=== PATIENT | male | born 1955 | race Caucasian/White ===

== ENCOUNTER 2017-04-23 07:29 | Emergency (ER) | payer OTHER ==
[2017-04-23] MEDS ORDERED: NS 0.9% 1000 ML* 1,000 ML IV ONE (08:25)
[2017-04-23] MEDS ORDERED: Aspirin Low Dose CHEW TAB* 81 MG PO ONE (08:25)
[2017-04-23] MEDS ORDERED: Aspirin TAB* 325 MG PO ONE (08:25)
[2017-04-23] MEDS ORDERED: Nitroglycerin TAB 0.4 MG* 0.4 MG TAB SL ONE (08:25)
[2017-04-23 08:52] LABS: Hematocrit 46 % (42-52); Hemoglobin 15.6 g/dl (14.0-18.0); Mean Corpuscular HGB Conc 34 g/dl (31-36); Mean Corpuscular Hemoglobin 31 pg (27-31); Mean Corpuscular Volume 90 fL (80-94); Mean Platelet Volume 8 um3 (7.4-10.4); Red Blood Count 5.05 10^6/ul (4.0-5.4); Red Cell Distribution Width 13 % (10.5-15); White Blood Count 7.8 10^3/ul (3.5-10.8)
[2017-04-23 09:13] LABS: Albumin 4.4 g/dL (3.2-5.2); BUN/Creatinine Ratio 20.9 (8-20); Calcium 9.8 mg/dL (8.6-10.3); EGFR African American 108.9 (>60); EGFR Non-African American 84.7 (>60); Globulin 2.8 g/dL (2-4); Potassium 3.7 mmol/L (3.5-5.0); Total Bilirubin 0.4 mg/dL (0.2-1.0); Total Protein 7.2 g/dL (6.4-8.9)
--- NOTE | 2017-04-23 09:20 | RAD ---
Indication: Chest pain. 2 views the chest including dual energy PA views demonstrate no mediastinal shift. Heart is of normal size and configuration. Lung de guzman are clear. When compared to previous exam of April 10, 2015 no significant change is noted. IMPRESSION: No active cardiopulmonary disease is noted.
[2017-04-23 15:37] VITALS: BP 117/72
--- NOTE | 2017-04-23 15:56 | ED ---
Paras Quinteros Angela, scribed for Wali Ross MD on 04/23/17 at 0804 . HPI Chest Pain - HPI Summary HPI Summary: This pt is a 61 y/o male BIBA presenting to [facility] c/o intermittent chest pain x6 days (since ). Pt notes his pain is worse in the morning and is located across his chest on both sides. He has taken some aspirin but not on a daily basis, today took one ASA at 0500. His pain radiates to his left arm. Pt endorses some intermittent back pain, not now. He denies SOB, LE swelling, LE pain, long distance travel. He currently rates his pain 2 out of 10 in severity and is described as "discomfort" and "it's just there." Pt has had this chest pain intermittently over the years. He reports the last time he had a stress test was in 2014. He had a catheterization in 2011 and states his coronary arteries are clear. PMHx includes HTN, glucose intolerant. Pt denies PMHx of COPD, diabetes, high cholesterol, blood clots. - History of Current Complaint Chief Complaint: EDChestPainROMI Hx Obtained From: Patient Onset/Duration: Started Days Ago, Still Present Timing: Lasting Days Current Severity: Mild Pain Intensity: 2 Pain Scale Used: 0-10 Numeric Chest Pain Location: Diffuse - across his chest on both sides Chest Pain Radiates: Yes Chest Pain Radiates To:: Arm - left Character: Other: - discomfort now Associated Signs and Symptoms: Positive: Chest Pain, Other: - left arm pain, back pain (not currently). Negative: Shortness of Breath, Calf Pain/Swelling - Allergy/Home Medications Allergies/Adverse Reactions: Allergies Allergy/AdvReac Type Severity Reaction Status Date / Time Sulfamethoxazole Allergy Hives Verified 04/23/17 07:33 w/Trimethoprim [From Bactrim] Home Medications: Home Medications Hydrochlorothiazide TAB* [Hydrodiuril TAB*] 12.5 mg PO DAILY 04/23/17 [History Confirmed 04/23/17] PMH/Surg Hx/FS Hx/Imm Hx Endocrine/Hematology History: Denies: Hx Diabetes, Hx Systemic Lupus Erythematosus, Hx Thyroid Disease, Hx Anemia, Hx Unexplained Bleeding Cardiovascular History: Reports: Hx Hypertension, Other Cardiovascular Problems/ Disorders - cardiac cath in 2009 Denies: Hx Aneurysm, Hx Angina, Hx Angioplasty, Hx Auto Implanted Cardiovert Defib, Hx Cardiac Arrest, Hx Cardiomegaly, Hx Congenital Heart Disease, Hx Congestive Heart Failure, Hx Coronary Artery Disease, Hx Deep Vein Thrombosis, Hx Embolism, Hx Hypercholesterolemia, Hx Hypotension, Hx Myocardial Infarction, Hx Pacemaker/ICD, Hx Peripheral Vascular Disease, Hx Rheumatic Fever, Hx Syncope , Hx Valvular Heart Disease Respiratory History: Denies: Hx Asthma, Hx Chronic Bronchitis, Hx Chronic Obstructive Pulmonary Disease (COPD) History: Reports: Hx Benign Prostatic Hyperplasia, Other Problems/ Disorders - prostatitis Musculoskeletal History: Reports: Hx Arthritis - hands Denies: Hx Back Problems, Hx Fibromyalgia, Hx Gout, Hx Orthopedic Injury, Hx Scoliosis Sensory History: Reports: Hx Cataracts - new lenses, Hx Contacts or Glasses - reading Denies: Hx Hearing Aid Opthamlomology History: Reports: Hx Cataracts - new lenses, Hx Contacts or Glasses - reading Neurological History: Reports: Hx Headaches - summer 2013 Denies: Hx Dementia, Hx Developmental Delay, Hx Migraine, Hx Nerve Disease, Hx Seizures, Hx Spinal Cord Injury, Hx Transient Ischemic Attacks (TIA), Other Neuro Impairments/Disorders Psychiatric History: Denies: Hx Panic Disorder - Surgical History Surgery Procedure, Year, and Place: cardiac cath 2007 - NO STENTS,. cataract surgery bilateral. DETACHED RETINA- 07/2015 ( [facility]ASER SURGERY - REPORT IN PT'S EMR) Hx Anesthesia Reactions: No Infectious Disease History: No Infectious Disease History: Denies: Traveled Outside the [place] in Last 30 Days - Family History Known Family History: Positive: Other - Father: [place] at about 61 y/o - Social History Alcohol Use: None Hx Substance Use: No Substance Use Type: Reports: None Hx Tobacco Use: No Smoking Status (MU): Never Smoked Tobacco Review of Systems Negative: Fever, Chills Positive: Chest Pain - radiating to left arm Negative: Shortness Of Breath Positive: Other - back pain, not currently. . Negative: Edema - in LE or LE pain All Other Systems Reviewed And Are Negative: Yes Physical Exam - Summary Physical Exam Summary: Appearance: Well-appearing, Well-nourished. No acute distress. Skin: Warm. No diaphoresis Eyes: Normal ENT: Normal Neck: Supple, nontender Respiratory: Clear to auscultation. Normal lung sounds. Cardiovascular: Normal heart sounds. Good pulses radial to posterior tibial area. Abdomen: Soft, nontender Bowel: Present Musculoskeletal: Normal, Strength/ROM Intact. No LE edema or tenderness. Neurological: Normal, A&Ox3 Psychiatric: Normal Triage Information Reviewed: Yes Vital Signs On Initial Exam: Initial Vitals BP 131/98 04/23/17 07:32 Vital Signs Reviewed: Yes - [place] Coma Scale Coma Scale Total: 15 Diagnostics - Vital Signs Vital Signs Temp Pulse Resp BP Pulse Ox 04/23/17 07:36 98.1 F 91 19 131/98 97 04/23/17 07:34 72 13 95 04/23/17 07:32 131/98 - Laboratory Lab Results: Lab Results 04/23/17 04/23/17 04/23/17 Range/Units 08:43 08:43 08:43 WBC (3.5-10.8) 10^3/ul RBC (4.0-5.4) 10^6/ul Hgb (14.0-18.0) g/dl Hct (42-52) % MCV (80-94) fL MCH (27-31) pg MCHC (31-36) g/dl RDW (10.5-15) % Plt Count (150-450) 10^3/ul MPV (7.4-10.4) um3 Neut % (Auto) (38-83) % Lymph % (Auto) (25-47) % [place] % (Auto) (1-9) % Eos % (Auto) (0-6) % Baso % (Auto) (0-2) % Absolute Neuts (auto) (1.5-7.7) 10^3/ul Absolute Lymphs (auto) (1.0-4.8) 10^3/ul Absolute Monos (auto) (0-0.8) 10^3/ul Absolute Eos (auto) (0-0.6) 10^3/ul Absolute Basos (auto) (0-0.2) 10^3/ul Absolute Nucleated RBC 10^3/ul Nucleated RBC % INR (Anticoag Therapy) 0.91 (0.89-1.11) APTT 30.5 (26.0-36.3) seconds Sodium 138 (133-145) mmol/L Potassium 3.7 (3.5-5.0) mmol/L Chloride 103 (101-111) mmol/L Carbon Dioxide 27 (22-32) mmol/L Anion Gap 8 (2-11) mmol/L BUN 19 (6-24) mg/dL Creatinine 0.91 (0.67-1.17) mg/dL Est GFR ( Amer) 108.9 (>60) Est GFR (Non-Af Amer) 84.7 (>60) BUN/Creatinine Ratio 20.9 H (8-20) Glucose 132 H (70-100) mg/dL Calcium 9.8 (8.6-10.3) mg/dL Magnesium 2.0 (1.9-2.7) mg/dL Total Bilirubin 0.40 (0.2-1.0) mg/dL AST 17 (13-39) U/L ALT 23 (7-52) U/L Alkaline Phosphatase 65 (34-104) U/L Troponin I 0.00 (<0.04) ng/mL B-Natriuretic Peptide 26 ( - 100) pg/mL Total Protein 7.2 (6.4-8.9) g/dL Albumin 4.4 (3.2-5.2) g/dL Globulin 2.8 (2-4) g/dL Albumin/Globulin Ratio 1.6 (1-3) 04/23/17 04/23/17 04/23/17 Range/Units 08:43 11:32 14:30 WBC 7.8 (3.5-10.8) 10^3/ul RBC 5.05 (4.0-5.4) 10^6/ul Hgb 15.6 (14.0-18.0) g/dl Hct 46 (42-52) % MCV 90 (80-94) fL MCH 31 (27-31) pg MCHC 34 (31-36) g/dl RDW 13 (10.5-15) % Plt Count 233 (150-450) 10^3/ul MPV 8 (7.4-10.4) um3 Neut % (Auto) 72.4 (38-83) % Lymph % (Auto) 18.4 L (25-47) % [place] % (Auto) 7.1 (1-9) % Eos % (Auto) 1.2 (0-6) % Baso % (Auto) 0.9 (0-2) % Absolute Neuts (auto) 5.6 (1.5-7.7) 10^3/ul Absolute Lymphs (auto) 1.4 (1.0-4.8) 10^3/ul Absolute Monos (auto) 0.6 (0-0.8) 10^3/ul Absolute Eos (auto) 0.1 (0-0.6) 10^3/ul Absolute Basos (auto) 0.1 (0-0.2) 10^3/ul Absolute Nucleated RBC 0.01 10^3/ul Nucleated RBC % 0.1 INR (Anticoag Therapy) (0.89-1.11) APTT (26.0-36.3) seconds Sodium (133-145) mmol/L Potassium (3.5-5.0) mmol/L Chloride (101-111) mmol/L Carbon Dioxide (22-32) mmol/L Anion Gap (2-11) mmol/L BUN (6-24) mg/dL Creatinine (0.67-1.17) mg/dL Est GFR ( Amer) (>60) Est GFR (Non-Af Amer) (>60) BUN/Creatinine Ratio (8-20) Glucose (70-100) mg/dL Calcium (8.6-10.3) mg/dL Magnesium (1.9-2.7) mg/dL Total Bilirubin (0.2-1.0) mg/dL AST (13-39) U/L ALT (7-52) U/L Alkaline Phosphatase (34-104) U/L Troponin I 0.00 0.00 (<0.04) ng/mL B-Natriuretic Peptide ( - 100) pg/mL Total Protein (6.4-8.9) g/dL Albumin (3.2-5.2) g/dL Globulin (2-4) g/dL Albumin/Globulin Ratio (1-3) Result Diagrams: 04/23/17 08:43 04/23/17 08:43 Lab Statement: Any lab studies that have been ordered have been reviewed, and results considered in the medical decision making process. - Radiology Chest XR Xray Interpretation: No Acute Changes - IMPRESSION: No active cardiopulmonary disease is noted. ED physician has reviewed this radiology report and agrees. Radiology Interpretation Completed By: Radiologist - EKG 0840 Cardiac Rate: NL - 75 bpm EKG Rhythm: Sinus Rhythm ST Segment: Normal Re-Evaluation - Re-Evaluation First Eval Re-Evaluation Time: 15:25 Change: Improved Comment: Pt is feeling better. Pt is chest pain free and is requesting discharge at this time. 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 Pt is comfortable with the plan and discharge. Chest Pain Course/Dx - Course Assessment/Plan: Pt has had similar episodes in the past. He is currently chest pain free. HEART score of 2. I have low clinical suspicion for ACS. Pt is requesting discharge at this time. He understands he needs to follow up with his fingernail sculptor. Pt and family agree and understand the plan and discharge instructions. - Diagnoses Provider Diagnoses: Chest pain Discharge - Discharge Plan Condition: Stable Disposition: HOME Patient Education Materials: Chest Pain (ED) Referrals: Ester Curran MD [Primary Care Provider] - Inocente Solis MD [Medical Doctor] - Additional Instructions: PLEASE MAKE AN APPOINTMENT FIRST THING IN THE MORNING TO BE SEEN BY YOUR SKIN LAP BONDER WITHIN 1 WEEK PLEASE RETURN TO THE ED FOR ANY WORSENING OR CONCERNING SYMPTOMS. The documentation as recorded by the Paras elias Angela accurately reflects the service I personally performed and the decisions made by me, Wali Ross MD.
== END 2017-04-23 16:04 | disposition home or self-care (01) ==
LOC: ED 07:29
DX: R07.89 Other chest pain (principal); M79.602 Pain in left arm; M54.9 Dorsalgia, unspecified; I10 Essential (primary) hypertension; Z98.42 Cataract extraction status, left eye; Z98.41 Cataract extraction status, right eye; Z88.2 Allergy status to sulfonamides
CPT/HCPCS: 36415; 71020; 80053; 83735; 83880; 84484; 85025; 85610; 85730; 93005; 96360; 99284; A9270-GY

== ENCOUNTER → 2017-04-28 12:20 | Emergency (ER) | payer OTHER ==
[~2017-04-28 12:20] MED LIST: Aspirin Low Dose CHEW TAB* 81 MG PO ONE
[2017-04-28 14:03] LABS: Hematocrit 42 % (42-52); Hemoglobin 14.7 g/dl (14.0-18.0); Mean Corpuscular HGB Conc 35 g/dl (31-36); Mean Corpuscular Hemoglobin 31 pg (27-31); Mean Corpuscular Volume 90 fL (80-94); Mean Platelet Volume 8 um3 (7.4-10.4); Red Blood Count 4.72 10^6/ul (4.0-5.4); Red Cell Distribution Width 13 % (10.5-15); White Blood Count 9.1 10^3/ul (3.5-10.8)
--- NOTE | 2017-04-28 14:08 | RAD ---
HISTORY: Chest pain COMPARISONS: April 23, 2017 VIEWS: 1: frontal portable view of the chest at 1:33 PM FINDINGS: LINES AND TUBES: None. CARDIOMEDIASTINAL SILHOUETTE: The cardiomediastinal silhouette is normal for portable technique. PLEURA: The costophrenic angles are sharp. No pleural abnormalities are noted. LUNG PARENCHYMA: The lungs are clear. ABDOMEN: The upper abdomen is clear. There is no subphrenic gas. BONES AND SOFT TISSUES: No bone or soft tissue abnormalities are noted. IMPRESSION: NO ACTIVE CARDIOPULMONARY DISEASE.
[2017-04-28 14:18] LABS: Albumin 4.2 g/dL (3.2-5.2); Calcium 9.5 mg/dL (8.6-10.3); EGFR African American 110.3 (>60); EGFR Non-African American 85.8 (>60); Globulin 2.7 g/dL (2-4); Magnesium 2.3 mg/dL (1.9-2.7); Potassium 3.7 mmol/L (3.5-5.0); Total Bilirubin 0.4 mg/dL (0.2-1.0); Total Protein 6.9 g/dL (6.4-8.9)
[2017-04-28 14:58] LABS: TSH (Thyroid Stimulating Horm) 1.45 mcIU/mL (0.34-5.60)
--- NOTE | 2017-04-28 15:30 | ED ---
HPI Chest Pain - HPI Summary HPI Summary: Patient presents again to the ED with diffuse chest pain and now with left sided arm tingling over the dorsum of the arm near the elbow which is intermittent. He was seen here 5 days ago (see below) with same symptoms. Denies changes. Aggravated with deep breaths, relieved with lying flat directly onto his chest. He has had a full cardiac workup a few years ago and has seen Dr. Sinclair. Previous note by Dr. Ross: Patient is a 61 y/o male BIBA presenting to the ED with CC of intermittent chest pain x 6 days (since ). Pt notes his pain is worse in the morning and is located across his chest on both sides. He has taken some aspirin but not on a daily basis, today took one ASA at 0500. His pain radiates to his left arm. Pt endorses some intermittent back pain, not now. He denies SOB, LE swelling, LE pain, long distance travel. He currently rates his pain 2 out of 10 in severity and is described as "discomfort" and "it's just there." Pt has had this chest pain intermittently over the years. He reports the last time he had a stress test was in 2014. He had a catheterization in 2011 and states his coronary arteries are clear. PMHx includes HTN, glucose intolerant. Pt denies PMHx of COPD, diabetes, high cholesterol, blood clots. - History of Current Complaint Chief Complaint: EDChestPainROMI Time Seen by Provider: 04/28/17 13:15 Hx Obtained From: Patient Onset/Duration: Started Hours Ago Timing: Constant Initial Severity: Mild Current Severity: Mild Pain Intensity: 2 Pain Scale Used: 0-10 Numeric Chest Pain Location: Diffuse Chest Pain Radiates: Yes Chest Pain Radiates To:: Arm, Jaw Character: Tightness Aggravating Factor(s): Deep Breaths Alleviating Factor(s): Position - Risk Factors Pulmonary Embolism Risk Factors: Negative TAD Risk Factors: Negative AMI/ACS Risk Factors: Family History, Nitroglycerine Use, Hypertension - Additional Pertinent History Referred By: PCP, Other - Carburetor Rebuilder whom 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 - Allergy/Home Medications Allergies/Adverse Reactions: Allergies Allergy/AdvReac Type Severity Reaction Status Date / Time Sulfamethoxazole Allergy Hives Verified 04/23/17 07:33 w/Trimethoprim [From Bactrim] PMH/Surg Hx/FS Hx/Imm Hx Previously Healthy: Yes Endocrine/Hematology History: Denies: Hx Diabetes, Hx Systemic Lupus Erythematosus, Hx Thyroid Disease, Hx Anemia, Hx Unexplained Bleeding Cardiovascular History: Reports: Hx Hypertension, Other Cardiovascular Problems/ Disorders - cardiac cath in 2009 Denies: Hx Aneurysm, Hx Angina, Hx Angioplasty, Hx Auto Implanted Cardiovert Defib, Hx Cardiac Arrest, Hx Cardiomegaly, Hx Congenital Heart Disease, Hx Congestive Heart Failure, Hx Coronary Artery Disease, Hx Deep Vein Thrombosis, Hx Embolism, Hx Hypercholesterolemia, Hx Hypotension, Hx Myocardial Infarction, Hx Pacemaker/ICD, Hx Peripheral Vascular Disease, Hx Rheumatic Fever, Hx Syncope , Hx Valvular Heart Disease Respiratory History: Denies: Hx Asthma, Hx Chronic Bronchitis, Hx Chronic Obstructive Pulmonary Disease (COPD) History: Reports: Hx Benign Prostatic Hyperplasia, Other Problems/ Disorders - prostatitis Musculoskeletal History: Reports: Hx Arthritis - hands Denies: Hx Back Problems, Hx Fibromyalgia, Hx Gout, Hx Orthopedic Injury, Hx Scoliosis Sensory History: Reports: Hx Cataracts - new lenses, Hx Contacts or Glasses - reading Denies: Hx Hearing Aid Opthamlomology History: Reports: Hx Cataracts - new lenses, Hx Contacts or Glasses - reading Neurological History: Reports: Hx Headaches - summer 2013 Denies: Hx Dementia, Hx Developmental Delay, Hx Migraine, Hx Nerve Disease, Hx Seizures, Hx Spinal Cord Injury, Hx Transient Ischemic Attacks (TIA), Other Neuro Impairments/Disorders Psychiatric History: Denies: Hx Panic Disorder - Surgical History Surgery Procedure, Year, and Place: cardiac cath 2007 - NO STENTS,. cataract surgery bilateral. DETACHED RETINA- 07/2015 ( LASER SURGERY - REPORT IN PT'S EMR) Hx Anesthesia Reactions: No - Immunization History Hx Pertussis Vaccination: No Immunizations Up to Date: Unable to Obtain/Confirm Infectious Disease History: No Infectious Disease History: Denies: Traveled Outside the [place] in Last 30 Days - Family History Known Family History: Positive: None, Other - Father: [place] at about 61 y/o - Social History Occupation: Employed Full-time Lives: With Family Alcohol Use: None Hx Substance Use: No Substance Use Type: Reports: None Hx Tobacco Use: No Smoking Status (MU): Never Smoked Tobacco Review of Systems Constitutional: Negative Negative: Fever, Chills, Fatigue Eyes: Negative Positive: Chest Pain Respiratory: Negative Genitourinary: Negative Positive: no symptoms reported, see HPI Positive: Arthralgia - left arm tingling Positive: Paresthesia - tingling in to the left arm Psychological: Normal All Other Systems Reviewed And Are Negative: Yes Physical Exam Triage Information Reviewed: Yes Vital Signs On Initial Exam: Initial Vitals Temp Pulse Resp BP Pulse Ox 97.8 F 81 18 152/80 99 04/28/17 12:20 04/28/17 12:20 04/28/17 12:20 04/28/17 12:20 04/28/17 12:20 Vital Signs Reviewed: Yes Appearance: Positive: Well-Appearing, Well-Nourished Skin: Positive: Warm, Skin Color Reflects Adequate Perfusion Head/Face: Positive: Normal Head/Face Inspection Eyes: Positive: EOMI, AJ, Conjunctiva Clear Neck: Positive: Supple, No Lymphadenopathy Respiratory/Lung Sounds: Positive: Clear to Auscultation, Breath Sounds Present Cardiovascular: Positive: RRR, Pulses are Symmetrical in both Upper and Lower Extremities Musculoskeletal: Positive: Normal, Strength/ROM Intact Neurological: Positive: Speech Normal Psychiatric: Positive: Normal AVPU Assessment: Alert Diagnostics - Vital Signs Vital Signs Temp Pulse Resp BP Pulse Ox 04/28/17 12:20 97.8 F 81 18 152/80 99 - Laboratory Lab Results: Lab Results 04/28/17 04/28/17 04/28/17 Range/Units 13:50 13:50 13:50 WBC (3.5-10.8) 10^3/ul RBC (4.0-5.4) 10^6/ul Hgb (14.0-18.0) g/dl Hct (42-52) % MCV (80-94) fL MCH (27-31) pg MCHC (31-36) g/dl RDW (10.5-15) % Plt Count (150-450) 10^3/ul MPV (7.4-10.4) um3 Neut % (Auto) (38-83) % Lymph % (Auto) (25-47) % [place] % (Auto) (1-9) % Eos % (Auto) (0-6) % Baso % (Auto) (0-2) % Absolute Neuts (auto) (1.5-7.7) 10^3/ul Absolute Lymphs (auto) (1.0-4.8) 10^3/ul Absolute Monos (auto) (0-0.8) 10^3/ul Absolute Eos (auto) (0-0.6) 10^3/ul Absolute Basos (auto) (0-0.2) 10^3/ul Absolute Nucleated RBC 10^3/ul Nucleated RBC % INR (Anticoag Therapy) 0.96 (0.89-1.11) APTT 31.8 (26.0-36.3) seconds Sodium 138 (133-145) mmol/L Potassium 3.7 (3.5-5.0) mmol/L Chloride 105 (101-111) mmol/L Carbon Dioxide 27 (22-32) mmol/L Anion Gap 6 (2-11) mmol/L BUN 18 (6-24) mg/dL Creatinine 0.90 (0.67-1.17) mg/dL Est GFR ( Amer) 110.3 (>60) Est GFR (Non-Af Amer) 85.8 (>60) BUN/Creatinine Ratio 20.0 (8-20) Glucose 103 H (70-100) mg/dL Lactic Acid (0.5-2.0) mmol/L Calcium 9.5 (8.6-10.3) mg/dL Magnesium 2.3 (1.9-2.7) mg/dL Total Bilirubin 0.40 (0.2-1.0) mg/dL AST 17 (13-39) U/L ALT 25 (7-52) U/L Alkaline Phosphatase 51 (34-104) U/L Total Creatine Kinase 116 (10-223) U/L CK-MB (CK-2) 2.7 (0.6-6.3) ng/mL Myoglobin 28.2 (17.4-105.7) ng/mL Troponin I 0.00 (<0.04) ng/mL B-Natriuretic Peptide 30 ( - 100) pg/mL Total Protein 6.9 (6.4-8.9) g/dL Albumin 4.2 (3.2-5.2) g/dL Globulin 2.7 (2-4) g/dL Albumin/Globulin Ratio 1.6 (1-3) TSH 1.45 (0.34-5.60) mcIU/mL 04/28/17 04/28/17 Range/Units 13:50 13:50 WBC 9.1 (3.5-10.8) 10^3/ul RBC 4.72 (4.0-5.4) 10^6/ul Hgb 14.7 (14.0-18.0) g/dl Hct 42 (42-52) % MCV 90 (80-94) fL MCH 31 (27-31) pg MCHC 35 (31-36) g/dl RDW 13 (10.5-15) % Plt Count 235 (150-450) 10^3/ul MPV 8 (7.4-10.4) um3 Neut % (Auto) 63.6 (38-83) % Lymph % (Auto) 25.1 (25-47) % [place] % (Auto) 7.7 (1-9) % Eos % (Auto) 2.6 (0-6) % Baso % (Auto) 1.0 (0-2) % Absolute Neuts (auto) 5.8 (1.5-7.7) 10^3/ul Absolute Lymphs (auto) 2.3 (1.0-4.8) 10^3/ul Absolute Monos (auto) 0.7 (0-0.8) 10^3/ul Absolute Eos (auto) 0.2 (0-0.6) 10^3/ul Absolute Basos (auto) 0.1 (0-0.2) 10^3/ul Absolute Nucleated RBC 0 10^3/ul Nucleated RBC % 0 INR (Anticoag Therapy) (0.89-1.11) APTT (26.0-36.3) seconds Sodium (133-145) mmol/L Potassium (3.5-5.0) mmol/L Chloride (101-111) mmol/L Carbon Dioxide (22-32) mmol/L Anion Gap (2-11) mmol/L BUN (6-24) mg/dL Creatinine (0.67-1.17) mg/dL Est GFR ( Amer) (>60) Est GFR (Non-Af Amer) (>60) BUN/Creatinine Ratio (8-20) Glucose (70-100) mg/dL Lactic Acid 1.2 (0.5-2.0) mmol/L Calcium (8.6-10.3) mg/dL Magnesium (1.9-2.7) mg/dL Total Bilirubin (0.2-1.0) mg/dL AST (13-39) U/L ALT (7-52) U/L Alkaline Phosphatase (34-104) U/L Total Creatine Kinase (10-223) U/L CK-MB (CK-2) (0.6-6.3) ng/mL Myoglobin (17.4-105.7) ng/mL Troponin I (<0.04) ng/mL B-Natriuretic Peptide ( - 100) pg/mL Total Protein (6.4-8.9) g/dL Albumin (3.2-5.2) g/dL Globulin (2-4) g/dL Albumin/Globulin Ratio (1-3) TSH (0.34-5.60) mcIU/mL Result Diagrams: 04/28/17 13:50 04/28/17 13:50 Lab Statement: Any lab studies that have been ordered have been reviewed, and results considered in the medical decision making process. Chest Pain Course/Dx - Course Course Of Treatment: Patient evaluated for chest pain. Trop x 2 both 0.00. Chest xray shows no acute changes. EKG WNL and compared with previous which is normal. Discussed treatment options with patient. He is agreeable to follow up with cardiology. He remains with discomfort and after given 324mg in the ED , he felt no changes with symptoms. Low suspician for ACS d/t negative workup today and negative workup 5 days ago. I am still encouraging a follow up with cardiology d/t symptoms. Patient voices no concerns with plan at this time and is OK for discharge. - Chest Pain Differential Diagnosis/HQI/PQRI: Acute [place], ACS, Angina - Diagnoses Provider Diagnoses: Chest pain - Provider Notifications Instructed by Provider To: Have Pt Call For Appt. - Dr. Sinclair Discharge - Discharge Plan Condition: Stable Disposition: HOME Patient Education Materials: Angina (ED) Referrals: Ester Curran MD [Primary Care Provider] - 1 Week Andi Sinclair MD [Medical Doctor] - As Soon As Possible Additional Instructions: Please take 324mg aspirin at first onset of any chest pain and return to the ED if symptoms worsen Follow up with cardiology As discussed, all tests today are negative and this may be managed as an outpatient
[2017-04-28 16:04] VITALS: BP 149/78
== END | disposition home or self-care (01) ==
LOC: ED 12:20
DX: R07.9 Chest pain, unspecified (principal); Z88.2 Allergy status to sulfonamides
CPT/HCPCS: 36415; 71010; 80053; 82550; 82553; 83605; 83735; 83874; 83880; 84443; 84484; 85025; 85610; 85730; 93005; 99282

== ENCOUNTER 2018-04-24 06:58 | Day surgery (SDC) | payer OTHER ==
[~2018-04-24 06:58] MED LIST changes: -Aspirin Low Dose CHEW TAB* 81 MG PO ONE; +Buffered Lidocaine 0.9% SYRIN* 5 ML/SYR SYRINGE INTRADERM ONE; +Bupivacaine 0.5% W/EPI SDV* 30 ML VIAL ONE; +Dexamethasone IV* 4 MG/ML 1 ML (4 MG) IV SLOW PU ONE; +EPINEPHRINE 1 MG/ML 1 ML VIAL ONE; +Famotidine IV* 10 MG/ML 2 ML (20 mg) IV ONE
[2018-04-24] MEDS ORDERED: ceFAZolin 2 GM PREMIX in ORs 2 GM/50 ML BAG IVPB ONE (07:05)
[2018-04-24] MEDS ORDERED: Famotidine IV* 10 MG/ML 2 ML (20 mg) ONE (07:05)
[2018-04-24] MEDS ORDERED: Morphine VIAL* 10 MG/ML 1 ML VIAL ONE ×2 (07:05→07:38)
[2018-04-24] MEDS ORDERED: Dexamethasone IV* 4 MG/ML 1 ML (4 MG) ONE (07:38)
[2018-04-24] MEDS ORDERED: Midazolam* 1 MG/ML 2 ML VIAL (2 MG) ONE (07:46)
[2018-04-24] MEDS ORDERED: Mivacurium Chloride* 20 MG/10 ML VIAL IV ONE (07:46)
[2018-04-24] MEDS ORDERED: Propofol* 10 MG/ML 20 ML BTL IV PUSH ONE (07:46)
[2018-04-24] MEDS ORDERED: fentaNYL* 50 MCG/ML 2 ML VIAL (100 MCG VIAL) ONE ×3 (07:46→12:23)
[2018-04-24] MEDS ORDERED: Lidocaine 2% PF * 5 ML VIAL ONE (07:46)
[2018-04-24] MEDS ORDERED: ROPIVACAINE 5 MG/ML 30 ML BTL (0.5%) ONE (08:17)
[2018-04-24] MEDS ORDERED: EPHEDrine (Pressors)* 50 MG/ML VIAL ONE (09:26)
[2018-04-24] MEDS ORDERED: Ketorolac INJ* 30 MG/ML 1 ML VIAL IV PRN (10:03)
[2018-04-24] MEDS ORDERED: oxyCODONE/Acetamin 5/325 MG* TAB PO PRN (10:03)
[2018-04-24] MEDS ORDERED: HYDROcodone/ACETAMIN 5-325 MG* 1 TAB PO PRN (10:03)
[2018-04-24] MEDS ORDERED: Naloxone* 0.4 MG/ML 1 ML VIAL IV PRN (10:03)
[2018-04-24] MEDS ORDERED: DiMENhydriNATE IV* 50 MG/ML VIAL IV PUSH PRN (10:03)
[2018-04-24] MEDS ORDERED: Ondansetron INJ* 2 MG/ML VIAL ONE (10:36)
[2018-04-24] MEDS ORDERED: Propofol* 500 MG/50 ML BTL ONE (11:21)
[2018-04-24] MEDS ORDERED: Propofol* 100 ML ONE (11:37)
[2018-04-24] MEDS: fentaNYL* 50 MCG/ML 2 ML VIAL (100 MCG VIAL) IV PRN ×2 (12:22→12:38)
[2018-04-24] MEDS ORDERED: Ketorolac INJ* 30 MG/ML 1 ML VIAL ONE (13:51)
[2018-04-24 14:43] VITALS: BP 106/82
--- NOTE | 2018-04-27 00:03 | OP ---
DATE OF OPERATION: 04/24/18 - [facility] DATE OF : 55 SURGEON: Dr. Malcolm Rebollar. DATA RECOVERY PLANNER: CINDA Dumont. A physician family services assistant was required for the length of the procedure for assistance with positioning, instrumentation and closure. ANESTHESIOLOGIST: Dr. Gaudencio Carty. ANESTHESIA: General anesthesia, regional interscalene block anesthesia. PRE-OP DIAGNOSES: 1. Left shoulder rotator cuff tendon tear, full thickness, supraspinatus as well as intralaminar tear, subscapularis. 2. Left shoulder long head biceps tendon subluxation, medial as well as tendinosis. 3. Left shoulder AC joint osteoarthritis and subacromial impingement and bursitis. POST-OP DIAGNOSES: 1. Left shoulder rotator cuff tendon tear, full thickness, supraspinatus, rotator cuff tendinitis, subscapularis. 2. Left shoulder long head biceps tendon subluxation, lateral and possibly medial, tendinosis of biceps tendon. 3. Left shoulder AC joint osteoarthritis and subacromial impingement and bursitis. OPERATIVE PROCEDURE: 1. Left shoulder arthroscopic rotator cuff tendon repair, supraspinatus, double row, 2 anchors. 2. Left shoulder arthroscopic subacromial decompression. 3. Left shoulder arthroscopic distal clavicle resection. 4. Left shoulder arthroscopic debridement including release of biceps tendon, debridement of rotator cuff interval. ANTIBIOTICS: Ancef 2 g IV. IV FLUIDS: 1100 cc crystalloid. SKIN TO SKIN TIME: 95 minutes. ARTHROSCOPY FLUID UTILIZED: Nine bags for a total of 27 L. SPECIMEN: None. IMPLANTS: Healix Mitek 5.5 mm triple loaded suture anchor x1. Healix Knotless 5.5 mm suture anchor x1. COMPLICATIONS: None. ESTIMATED BLOOD LOSS: Minimal. 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 The patient continued to have pain, increasing amounts in that injured left shoulder. He had previously, in 2017, been diagnosed with a partial thickness rotator cuff tendon tear. I ordered a new MRI and it showed a full thickness anterior supraspinatus rotator cuff tendon tear as well as AC joint osteoarthritis, likely medial biceps subluxation into an intralaminar tear of the subscapularis. Subacromial bursitis and impingement. The patient opted for surgery. Discussed risks and potential complications. DESCRIPTION OF PROCEDURE: The patient signed a written consent in the preoperative holding. Operative extremity was marked in the preoperative holding. The patient underwent an interscalene nerve block regionally by Dr. Carty. The patient was taken back to the operating room and placed supine on the operating room table. The patient was sedated and intubated. The patient was transferred in lateral decubitus position with the left shoulder up. Axillary roll placed. Beth bag was hardened. All bony prominences were padded , longitudinal traction of 15 pounds and the appropriate amount of abduction and forward flexion. Left shoulder was prepped and draped. Surgical time-out was performed. I infused 30 cc of normal saline into the glenohumeral joint from posterior, cleared and then established a posterior glenohumeral joint portal. As I entered the shoulder, the first thing that stood out was a partially torn very tendinotic long head biceps tendon. I evaluated the subscapularis in a variety of humerl head positions. It looked ragged a little bit, but there was no release off its insertion on the humeral head. I established an anterior glenohumeral joint portal under direct visualization. I debrided some of the subscapularis to better visualize it. No clear high grade tear. I debrided some rotator cuff interval scar tissue. I entered an arthroscopic scissors and cut the long head biceps close to its origin. I debrided much of the superior labrum, which was unstable, once the long head biceps tendon had been cut. There was a significant amount of the supraspinatus footprint that was visible under the supraspinatus. I measured this to be almost 10 mm. I could not appreciate a full thickness tear in the tendon. I placed a spinal needle to torrie this spot of at least partial thickness tear. I removed instruments and fluids from the glenohumeral joint. I entered the subacromial space from anterior and posterior. I encountered much bursitis. I made a lateral subacromial portal under direct visualization and entered an arthroscopic shaver to debride the subacromial bursitis. What I noticed immediately was a full thickness tear in the anterior supraspinatus. I established a posterolateral portal for improved visualization. After removing the bursts in the subacromial space, I addressed the full thickness rotator cuff tendon tear. I debrided the end of the tendon with the arthroscopic shaver as well as the exposed footprint. There was a small intralaminar resultant split at the end of the tendon. I then debrided the insertion point with a VAPR and then an arthroscopic siena to improve the healing surface. I then proceeded to do a subacromial decompression using the arthroscopic siena working from lateral. I placed a 7 mm arthroscopic Arthrex plastic cannula anterior and then lateral. I placed a superolateral poke hole and placed my 5.5 mm suture anchor through it into the medial aspect of the rotator cuff footprint. This was triple loaded. I used a [employer] passer to place three horizontal mattress stitches in the supraspinatus tendon. This was after I confirmed with the grasper that the tendon could be brought down to bone in tension free fashion. I passed all sutures before tying my 3 knots. I next placed a Knotless suture anchor through a superolateral poke hole into the lateral aspect of the footprint using 4 sutures from the medial row. There was slight dog ear between the anterior suture and the central suture. I therefore placed a simple stitch with the free suture from the Knotless suture anchor. This brought the cuff down very nicely to bone. I took pictures from a variety of positions and confirmed stability of repair. I next moved to the AC joint. I debrided the bursitic tissue with a VAPR. I then debrided 8 mm at the distal end of the distal clavicle with an arthroscopic siena. I removed all fluids and instruments. I closed the skin incisions with figure- of- eight and 12 stitches using nylon 3-0 sutures. Xeroform, 4x4s, ABDs, foam tape. The patient was placed into a sling and abduction pillow. A cooling unit was placed nearby. Anesthesia then noted some swelling about the patient's trapezial area left of neck. They were concerned about extubating the patient. They worried that if the patient required intubation for whatever reason, the patient might be a difficult intubation. Therefore, they decided continue the patient intubated into the PACU. The patient was brought to the PACU while intubated and kept there until Anesthesia was comfortable extubating the patient. The patient was given a cooling unit. He was given dressing instructions. The patient was sent home on Percocet as needed for pain control as well as aspirin for DVT prophylaxis. The patient will start physical therapy immediately, although I told him this would just consist of pendulum exercises as well as sling education. The patient will follow up with me in clinic 10 to 14 days postoperatively. [id number]/[facility] #: [id number] MTDD
== END 2018-04-24 15:39 | disposition home or self-care (01) ==
LOC: OR 06:58
PROVIDERS: ATTEND Orthopaedic Surgery
DX: S46.012A Strain of muscle(s) and tendon(s) of the rotator cuff of left shoulder, initial encounter (principal); S46.112A Strain of muscle, fascia and tendon of long head of biceps, left arm, initial encounter; M19.012 Primary osteoarthritis, left shoulder; G89.18 Other acute postprocedural pain; X50.0XXA Overexertion from strenuous movement or load, initial encounter; Y93.89 Activity, other specified; Y92.214 College as the place of occurrence of the external cause; Y99.0 Civilian activity done for income or pay
CPT/HCPCS: J0690; J1100; J1885; J2250; J2270; J2405; J2704; J2795; J3010

== ENCOUNTER → 2018-11-24 17:56 | Emergency (ER) | payer OTHER ==
[~2018-11-24 17:56] MED LIST changes: -Buffered Lidocaine 0.9% SYRIN* 5 ML/SYR SYRINGE INTRADERM ONE; -Bupivacaine 0.5% W/EPI SDV* 30 ML VIAL ONE; -Dexamethasone IV* 4 MG/ML 1 ML (4 MG) IV SLOW PU ONE; -EPINEPHRINE 1 MG/ML 1 ML VIAL ONE; -Famotidine IV* 10 MG/ML 2 ML (20 mg) IV ONE; +Iohexol 350* (CONTRAST) 500 ML MDV IV ONE; +NS 0.9% 1000 ML** 1,000 ML IV ONE
--- OUTSIDE RECORDS SUMMARY | 2018-11-24 18:20 | XMS REPORT | Continuity of Care Document ---
:1955 External Reference #:[id number] Author Name Terrance Hill Care Team Providers Name Role Phone Ester Sinclair MD Primary Care Physician Unavailable Payers Date Identification Numbers Payment Provider Subscriber Policy Number: [id number] [employer] Wanda Villalobos Group Number: [id number] [address] PayID: [id number] [place] [address] Expires: 2016 Policy Number: [id number] [employer] Wanda Villalobos Group Number: [id number] [address] PayID: [id number] [place] [address] Effective: 2005 Policy [facility] [id number] [facility]al[facility] Expires: 2012 PayID: [id number] [address] [place] [address] Onset: 2012 Policy Number: [id number] Annie Villalobos PayID: CODY [address] [place] [address] Onset: 2018 Policy Number: [id number] Annie Villalobos Group Name: [id number] [address] PayID: CODY [place] [id number] Problems Active Problems Provider Date Essential hypertension [place] Sinclair DO [facility] Onset: 04/27/2015 Strain of rotator cuff capsule Malcolm Rebollar MD Onset: 03/17/2018 Strain of muscle(s) and tendon(s) of the Malcolm Rebollar MD Onset: 2016 rotator cuff of left shoulder, subsequent encounter Family History Date Family Member(s) Observation Comments General Heart Trouble, Cancer General Diabetes Father MS age 62 Social History Type Date Description Comments Sex Unknown Lives With Spouse Occupation Currently Working [employer] ETOH Use Denies alcohol use Tobacco Use Start: Unknown Patient has never smoked Smoking Status Reviewed: 11/09/18 Patient has never smoked Exercise Type/Frequency Does not exercise Allergies, Adverse Reactions, Alerts Active Allergies Reaction Severity Comments Date Bactrim 06/11/2013 Medications Active Medications SIG Qnty Indications Ordering Date Provider Atenolol 1 by mouth 90tabs Unknown 50mg Tablets every day Flomax once daily Unknown 0.4mg Multivitamin Gummies Adults once daily Unknown Chewtabs Hydrochlorothiazide 1 by mouth Unknown 12.5mg Capsules every day History Medications Percocet 1 - 2 tabs by 30tabs Malcolm [place] 04/24/2018 - 5-325mg mouth every 4 - MD Smooth 09/07/2018 Tablets 6 hours as needed for pain. Aspirin Ec take 1 tab by 30tabs Malcolm [place] 04/24/2018 - 325mg mouth bid every MD Smooth 06/04/[address] day x 14 days. with food. Keflex take 1 tab by 21caps Malcolm [place] 04/24/2018 - 500mg mouth 3 times a MD Smooth 06/04/2018 Capsules day x 7 days until finished. Naproxen 1 po bid prn 90tabs M75.42 Malcolm Beach 07/10/2016 - 500mg pain MD Smooth 06/04/2018 Tablets Valium take 1-2 tabs 2tabs Malcolm [place] 07/10/2016 - 5mg Tablets prior to mri MD Smooth 06/04/2018 imaging test Valium take 1-2 tabs 2tabs Malcolm [place] 07/10/2016 - 5mg Tablets prior to mri MD Smooth 06/04/2018 imaging test Valium take 1-2 tabs 2tabs Malcolm [place] 07/10/2016 - 5mg Tablets prior to mri MD Smooth 06/04/2018 imaging test Omeprazole 1 by mouth every 30caps R07.9 [place] Sinclair, 04/27/2015 - 20mg day DO FACC 06/30/2016 Capsules Aspirin Low Dose 1 by mouth every Unknown - day 06/23/2016 81mg Tablets Medications Administered in Office Medication SIG Qnty Indications Ordering Provider Date Depomedrol 40MG Malcolm Rebollar MD 07/24/2016 Injection Vital Signs Date Vital Result Comment 11/09/2018 1:28pm Height 67 inches 5'7" Weight 198.00 lb Heart Rate 70 /min BP Systolic 140 mmHg BP Diastolic 78 mmHg Respiratory Rate 12 /min Pain Level 2 BMI (Body Mass Index) 31.0 kg/m2 09/08/2018 1:17pm Height 67 inches 5'7" Heart Rate 77 /min BP Systolic Sitting 118 mmHg large adult cuff left arm BP Diastolic Sitting 82 mmHg large adult cuff left arm Pain Level 3 O2 % BldC Oximetry 95 % at rest on room air 07/16/2018 9:38am Height 67 inches 5'7" Heart Rate 75 /min BP Systolic 124 mmHg BP Diastolic 80 mmHg Respiratory Rate 18 /min Body Temperature 98.0 F Pain Level 3 06/04/2018 9:46am Height 67 inches 5'7" Weight 206.00 lb BP Systolic 142 mmHg BP Diastolic 88 mmHg BMI (Body Mass Index) 32.3 kg/m2 05/07/2018 2:00pm Height 67 inches 5'7" Heart Rate 87 /min BP Systolic 130 mmHg BP Diastolic 82 mmHg Respiratory Rate 18 /min Body Temperature 97.6 F Pain Level 5 04/01/2018 1:08pm Height 67 inches 5'7" BP Systolic 130 mmHg BP Diastolic 86 mmHg Respiratory Rate 17 /min Pain Level 5 03/17/2018 1:47pm Height 67 inches 5'7" Weight 204.50 lb Heart Rate 68 /min BP Systolic Sitting 134 mmHg BP Diastolic Sitting 92 mmHg Respiratory Rate 14 /min Body Temperature 98.1 F Pain Level 5 BMI (Body Mass Index) 32.0 kg/m2 08/29/2016 1:14pm Height 66.5 inches 5'6.50" Weight 205.00 lb Heart Rate 81 /min BP Systolic 139 mmHg BP Diastolic 90 mmHg Pain Level 0 BMI (Body Mass Index) 32.6 kg/m2 07/24/2016 1:00pm Height 66.5 inches 5'6.50" Weight 205.00 lb Respiratory Rate 19 /min Pain Level 2 BMI (Body Mass Index) 32.6 kg/m2 07/10/2016 2:42pm Height 66.5 inches 5'6.50" Weight 205.00 lb Heart Rate 72 /min BP Systolic 130 mmHg BP Diastolic 90 mmHg Pain Level 3 BMI (Body Mass Index) 32.6 kg/m2 05/25/2015 2:24pm Height 66.5 inches 5'6.50" Weight 201.00 lb without shoes Heart Rate 56 /min BP Systolic Sitting 150 mmHg Ra reg cuff BP Diastolic Sitting 90 mmHg Ra reg cuff BP Systolic Standing 144 mmHg Ra reg cuff BP Diastolic Standing 90 mmHg Ra reg cuff Respiratory Rate 16 /min BMI (Body Mass Index) 32.0 kg/m2 Ejection Fraction 55-60% date 11/07/14 ECHO 04/27/2015 2:21pm Height 66.5 inches 5'6.50" Weight 206.00 lb no shoes Heart Rate 86 /min BP Systolic 172 mmHg Ra, reg cuff BP Diastolic 104 mmHg Ra, reg cuff BP Systolic Sitting 154 mmHg LA, reg cuff BP Diastolic Sitting 96 mmHg LA, reg cuff BP Systolic Standing 154 mmHg LA BP Diastolic Standing 92 mmHg LA Respiratory Rate 16 /min BMI (Body Mass Index) 32.7 kg/m2 Ejection Fraction 55-60% 10/28/14 Procedures Date Code Description Status 04/24/2018 79364 Arthroscopy Shoulder,W/Rotator Cuff Repair Completed 04/24/2018 35644 Arthroscopy Shoulder,W/Rotator Cuff Repair Completed 04/24/2018 42440 Arthroscopy,Shoulder Decompression Of Subacromial Space Completed W/Acromio 04/24/2018 85177 Arthroscopy,Shoulder Decompression Of Subacromial Space Completed W/Acromio 04/24/2018 07660 Arthroscopy,Shoulder,Distal Claviculectomy Incl Dist Completed Articular SR 04/24/2018 62876 Arthroscopy,Shoulder,Distal Claviculectomy Incl Dist Completed Articular SR 07/24/2016 59691 Inject/Drain Joint/Bursa Major W/O US Completed 05/06/2016 04609 Holter Monitor Review (24 hr)dr review & interp only Completed 05/06/2016 88489 Holter Monitor Review (24 hr)dr review & interp only Completed 05/06/2016 37811 ECG Monitor/Recording W/Visual Superimposition Scanning Completed 05/03/2016 48902 ECG Monitor/Recording W/Visual Superimposition Scanning Completed 05/03/2016 30558 ECG Monitor/Recording W/Visual Superimposition Scanning Completed 04/27/2015 81992 EKG Tracing & Interpretation Completed 04/27/2015 41000 Cardiac Event Monitor Completed 04/27/2015 39293 Cardiac Event Monitor Completed 11/03/2014 37057 Treadmill Interp/Report Only Completed 11/03/2014 23524 Stress Test Supervsn W/Out I/R Completed 11/02/2014 11000 EKG, Interpretation Only Completed 10/29/2014 40382 EKG, Interpretation Only Completed 10/28/2014 40538 ECHO Transthorasic Realtime 2D W Doppler & Color Flow Hosp Completed 10/28/2014 44839 EKG, Interpretation Only Completed 12/09/2012 55574 Rad Exam; Wrist, Comp, Min 3 Views Completed 02/14/2006 02792 Treadmill Interp/Report Only Completed 02/14/2006 26939 Treadmill Interp/Report Only Completed 02/14/2006 74762 Stress Test Supervsn W/Out I/R Completed Encounters Type Date Location Provider Dx Diagnosis Office Visit 09/08/2018 [facility] S46.012D Strain of 1:15p Services Of MD christopher Parikh/tend the rotator cuff of left shoulder, subs M75.42 Impingement syndrome of left shoulder M75.52 Bursitis of left shoulder M19.012 Primary osteoarthritis, left shoulder Office Visit 04/01/2018 1:15p [facility] S46.012D Strain of Services Of MD christopher Rebollar/tend the [facility] rotator cuff of left shoulder, subs S46.112D Strain of christopher/fasc/tend long head of biceps, left arm, subs M19.012 Primary osteoarthritis, left shoulder Office Visit 03/17/2018 1:15p [facility] S46.012A Strain of Services Of MD christopher Rebollar/tend the [facility] rotator cuff of left shoulder, init Office Visit 08/29/2016 1:15p [facility]ri [facility] S46.012D Strain of Services Of MD christopher Rebollar/tend the [facility] rotator cuff of left shoulder, subs M75.42 Impingement syndrome of left shoulder Office Visit 07/24/2016 1:00p [facility] S46.012D Strain of Services Of MD Smooth musc/tend the [facility] rotator cuff of left shoulder, subs M75.42 Impingement syndrome of left shoulder M19.012 Primary osteoarthritis, left shoulder Office Visit 07/10/2016 2:30p [facility] M75.42 Impingement Services Of MD Smooth syndrome of left [facility] shoulder Office Visit 05/25/2015 2:40p [place] S. I10 [facility] Sinclair, DO (primary) [facility] hypertension R07.9 Chest pain, unspecified I49.3 Ventricular premature depolarization Office Visit 04/27/2015 3:00p [place] [facility] [place] SWarren Sinclair, R00.2 Palpitations Of [facility] I10 Essential (primary) hypertension R07.9 Chest pain, unspecified Office Visit 11/03/2014 3:16p [facility] Santiago Nguyen 786.50 [facility],eyad Rodgers M.D. [facility] 785.1 Palpitations Office Visit 11/02/2014 3:16p [facility] Santiago Prieto 786.50 [facility],eyad Serrano M.D. [facility] 785.1 Palpitations Office Visit 10/29/2014 10:25a Balsamfrank Prieto 786.50 [facility],eyad Serrano M.D. [facility] 785.1 Palpitations 401.9 Hypertension Unspec 277.7 Dysmetabolic Syndrome X Office Visit 10/28/2014 10:23a Balsamfrank Prieto 786.50 [facility],eyad Serrano M.D. [facility] 785.1 Palpitations 401.9 Hypertension Unspec 277.7 Dysmetabolic Syndrome X Office 01/20/2013 [facility] 715.14 Osteoarthrosis Visit 11:30a Services Of Natalya Fernández Localized Prim Hand [facility] Plan of Treatment Future Appointment(s):02/09/2019 9:15 am - Malcolm Rebollar MD at [facility]11/09/2018 - Malcolm Rebollar, MDS46.012D Strain of muscle(s) and tendon(s) of the rotator cuff of [place] up:Follow up: 3 ncrpkcJ63.42 Impingement syndrome of left ucsngftuV13.52 Bursitis of left ituplzbgJ01.012 Primary osteoarthritis, left shoulder
--- OUTSIDE RECORDS SUMMARY | 2018-11-24 18:20 | XMS REPORT | Continuity of Care Document ---
:1955 External Reference #:[id number] Author Name Ester Sinclair M.D., R.D. 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 PayID: [id number] [place] [address] Onset: 2018 Policy Number: [id number] Valenciarobbie Goodman Wanda Villalobos PayID: [id number] [address] [place] [address] Problems Active Problems Provider Date Pure hypercholesterolemia Ester Sinclair M.D., RIsaac Onset: 08/29/2011 Essential hypertension Ester Sinclair M.D., R.Linda Onset: 08/29/2011 Impaired fasting glycaemia Ester Sinclair M.D., R.Linda Onset: 08/29/2011 Benign prostatic hypertrophy without Ester Sinclair M.D., R.DWarren Onset: 2011 outflow obstruction Psoriasis Ester Sinclair M.D., R.DWarren Onset: 08/29/2011 Overweight Ester Sinclair M.D., R.D. Onset: 08/29/2011 Family History Date Family Member(s) Observation Comments Mother MOTHER HAD BREAST CA IN 1971, BUT 61. MAY HAVE OF SCLERODERMA, AGE Siblings Siblings: Has 3 Sisters,2 Lung Cancer Age 66. Older Brohers. Oldest Sister Was Smker, Brother Has Colon CA At Age Of 65. Social History Type Date Description Comments Sex Unknown Marital Status Lives With Lives with spouse--Son Stepan Age 23 Has DM, Jose Age 21 A&W. Diet Healthy, Well Balanced Diet . Eats sardines Eats healthy food 1-2x/week, low/no but too big sugars. portions. 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 Tobacco Use Start: Unknown Never Smoked Cigarettes ETOH Use does not use alcohol Tobacco Use Start: Unknown Patient has never smoked Smoking Status Reviewed: 04/15/18 Patient has never smoked Exercise Type/Frequency Exercises sporadically. summer. Used to Walks in day a lot play [employer] but with work. Bikes in not anymore as of 05/31. Not much exercise as of 06/2010, no regular exercise as of 08/2011. No exercise as of 04/2013. Exercise Type/Frequency As of 04/2015, riding bike, walking Allergies, Adverse Reactions, Alerts Active Allergies Reaction Severity Comments Date Bactrim itching 06/12/2009 Inactive Allergies NKDA 06/12/2009 Medications Active Medications SIG Qnty Indications Ordering Date Provider Onetouch Ultra Blue use for 100units [facility] 11/09/2018 Strips testing blood estee Sinclair twice a M.DWarren, R.D. day or as needed Hydrochlorothiazide Take One 30tabs I10 [facility] 04/01/2016 12.5mg Tablet Daily Peter Sinclair In The M.D., R.D. Morning. Atenolol Take 1 Tablet 90tabs Ester 11/09/2014 50mg Tablets By Mouth Dottie Every Day M.Linda, R.D. Aspir-81 1 by mouth 30tabs [facility] 10/31/[address] every day Kimberley Sinclair., R.D. Multivitamins gummy Ester 10/31/2014 [place] Sinclair M.D., R.D. Flomax 1 po qd 30caps Ester 06/12/2009 0.4mg Caps ER 24HR Natalya Sinclair, R.D. History Medications Doxycycline 1 tabs by mouth 14tabs L03.012 Ester Sinclair, 02/02/2018 - Monohydrate twice a day Natalya R.DWarren 04/15/2018 100mg Tablets Tizanidine HCL Take 1/2 or [address] [facility] 09/09/2017 - 4mg tab by mouth PAYTON Raza 09/23/2017 Capsules every 6 to 8 hrs as needed for pain. Try first at night before bed Nabumetone 2 by mouth once 28tabs M54.5 [facility] 09/09/2017 - 500mg Tablets a day for 2 PAYTON Raza 09/23/2017 weeks max. Can stop sooner if symptoms improve Anusol-HC apply 2-3 times 60gm Ester Sinclair, 07/14/2017 - 2.5% Cream a day for up to Natalya RsIaac 08/27/2017 2 weeks at a time Hydrocortisone Acetate I per rectum 4units K92.1 [facility] 03/28/2017 - daily for 4 days PAYTON Raza 03/31/2017 25mg Suppository Ilotycin apply a thin 1units H10.89 Clary Rai, 05/10/2016 - 5mg/GM Ointment layer to Right [employer] 07/08/2016 eye three times daily x 7 days Penlac Apply to 6.600ml B35.1 Ester Sinclair, 04/29/2016 - 8% Solution toenails daily Natalya RWarrenDWarren 03/31/2017 for 6 months after roughing nail with emery board Gentamicin Sulfate administer 1-2 5ml H10.89 Clary Rai, 03/30/2016 - 0.3% drops every 4 [employer] 04/01/2016 Solution hours while awake X 5 days Ibuprofen take one tablet 120tabs R10.10 Clary Rai, 01/03/2016 - 600mg Tablets by mouth 4 times [employer] 04/01/2016 daily with food as needed for pain Cyclobenzaprine HCL 1-2 by mouth 30tabs R10.10 Clary Rai, 01/03/2016 - 5mg three times a [employer] 04/01/2016 Tablets day for muscle spasm, may cause drowsiness Econazole Nitrate apply to rash 90gm B35.9 Ester Sinclair, 01/03/2016 - 1% twice a day M.D., R.D. 04/15/2018 Cream One Touch Blue Test Use as directed 60units Ester Sinclair, 05/11/2015 - Strips to check bg qd M.D., R.D. 04/29/2016 Piroxicam 1 tablet by 30caps 724.8 Clary Rai, 04/08/2014 - 20mg Capsules mouth every day [facility] 10/31/2014 as needed for back pain, do not use ibuprofen Methocarbamol 1 by mouth three 30tabs 724.8 Clary Rai, 04/08/2014 - 750mg times a day as [facility]- 10/31/2014 Tablets needed for muscle spasm Cyclobenzaprine HCL 1 by mouth three 30tabs 724.8 Ester Sinclair, 2013 - 10mg times a day as M.D., R.D. 04/08/2014 Tablets needed for muscle spasm Gabapentin take one capsule 60caps Ester Sinclair, 01/05/2014 - 300mg Capsules by mouth once M.D., R.D. 10/31/2014 daily to start. May increase to bid in 4 days if no side effects. Fluticasone Nasal 2 whiffs each 1units 379.90 Ester Sinclair, 12/02/2013 - [place] nare every day M.D., R.D. 12/02/2013 0.05pc Fluticasone Propionate instill 2 sprays 1units 379.90 Ester Sinclair, 05/2014 - into each M.D., R.D. 10/31/2014 50mcg/Act Suspension nostril once daily Econazole Nitrate Apply To 15units 110.5 Clary Rai, 01/13/2013 - 1% Affected Area(S) [facility] 10/31/2014 Cream Of Groin Two Times A Day Itraconazole 1 tab po bid x 28caps 110.8 Clary Rai, 01/17/2012 - 100mg 14 days [employer] 05/17/2013 Capsules Nystatin/Triamcinolone apply to lesion 30gm 110.8 Clary Bellvey, 2011 - on left leg bid [employer] 05/17/2013 371755-0.1Unit/GM-% Cream Patient Should Be Out until 12/16/2011 844.9 Ester Sinclair, 12/09/2011 - Of Work due to injury. Natalya R.DWarren 12/09/2011 Triamcinolone Cream Apply to 60G 696.1 Ester Sinclair, 08/29/2011 - 1% affected areas Natalya R.DWarren 10/31/2014 bid for up to 2 weeks at a time prn Multivitamins 1 po qd 30tabs Ester Sinclair, 08/29/2011 - Tablets Natalya, R.D. 10/31/2014 Prostate Health Ester Sinclair, 08/29/2011 - Capsules Natalya, R.D. 05/17/2013 Out Of Work Patient should Ester Sinclair, 02/23/2011 - be out of work Natalya, R.D. 08/29/2011 from 02/23/2011- 1 due to illness. Physical Therapy For back/left Ester Sinclair, 07/16/2010 - hip and leg pain Natalya, R.D. 05/17/2013 Saw Bath 1 po qd Ester Sinclair, 06/12/2009 - 160mg Natalya, R.D. 08/29/2011 Capsules Ciprofloxacin HCL 1 po bid for 28tabs 789.07 Shawnti R. 06/27/2008 - 250mg infection Storm, [employer] 09/05/2008 Tablets Dicloxacillin Sodium 1 tid X 7Days 21caps Clyde Gaines, 05/13/2008 - M.D. 06/10/2008 250mg Capsules Protonix 1 po qd 0tabs Clyde Gaines, 03/05/2006 - 40mg Tablets M.D. 04/07/2006 Atenolol Take 1 Tablet 90tabs Ester Sinclair, 02/08/2005 - 25mg Tablets Daily Natalya, R.D. 11/09/2014 Atenolol one po qd 90units Clyde Gaines, 04/22/2002 - 50mg Natalya 02/08/2005 Immunizations CPT Code Status Date Vaccine Lot # [id number] Given 03/12/2018 Influenza Virus Vaccine, Quadrivalent, 3 Yr > [id number] Quad, Preserv Free 99115 Given 03/31/2017 Influenza Virus Vaccine, Quadrivalent, 3 Yr > [id number] Quad, Preserv Free 97018 Given 04/01/2016 Influenza Virus Vaccine, Quadrivalent, 3 Yr > [id number] Quad, Preserv Free 17954 Given 04/26/2015 Influenza Virus Vaccine, Quadrivalent, 3 Yr > [id number] Quad, Preserv Free 07008 Given 10/06/2013 Tdap (Adacel) [id number] 66301 Given 05/17/2013 Influenza Vaccine-Preservative Free 3 Yrs And [id number] Above 08024 Given 05/08/2011 Influenza Vaccine-Preservative Free 3 Yrs And [id number] Above 99854 Given 06/12/2009 H1N1 Influenza Vaccine [id number] 79995 Given 06/12/2009 H1N1 Immunization Administration, Including Counseling 25152 Given 06/08/2007 Influenza Virus Vaccine, 3 Yrs And Above [id number] 99718 Given 10/27/2002 DT (Adult) 64279 Given 01/31/1990 Tetanus Vital Signs Date Vital Result Comment 11/06/2018 9:59am Weight 203.00 lb Weight 92.081 kg BP Systolic 120 mmHg BP Diastolic 80 mmHg Heart Rate 72 /min Body Temperature 98.8 F Respiratory Rate 16 /min O2 % BldC Oximetry 94 % 04/15/2018 3:39pm Weight 200.00 lb Weight 90.720 kg BP Systolic 122 mmHg BP Diastolic 80 mmHg Heart Rate 77 /min Body Temperature 97.4 F Respiratory Rate 16 /min O2 % BldC Oximetry 98 % 03/11/2018 10:13am Weight 201.00 lb Weight 91.174 kg BP Systolic 122 mmHg BP Diastolic 78 mmHg Heart Rate 74 /min Body Temperature 97.3 F Respiratory Rate 16 /min O2 % BldC Oximetry 98 % 02/04/2018 11:40am Weight 204.00 lb Weight 92.534 kg BP Systolic 124 mmHg BP Diastolic 78 mmHg Heart Rate 74 /min Body Temperature 98.5 F Respiratory Rate 16 /min O2 % BldC Oximetry 97 % 02/02/2018 11:09am Weight 202.00 lb Weight 91.627 kg BP Systolic 128 mmHg BP Diastolic 82 mmHg Heart Rate 62 /min Body Temperature 98.3 F Respiratory Rate 16 /min 09/23/2017 2:45pm Weight 207.00 lb Weight 93.895 kg BP Systolic 130 mmHg BP Diastolic 74 mmHg Heart Rate 72 /min Body Temperature 98.7 F Respiratory Rate 16 /min O2 % BldC Oximetry 98 % 09/09/2017 3:09pm Weight 205.31 lb Weight 93.130 kg BP Systolic 130 mmHg BP Diastolic 78 mmHg Heart Rate 70 /min Body Temperature 98.3 F Respiratory Rate 16 /min O2 % BldC Oximetry 94 % 08/27/2017 9:27am Weight 205.00 lb Weight 92.988 kg BP Systolic 122 mmHg BP Diastolic 68 mmHg Heart Rate 78 /min Body Temperature 98.1 F Respiratory Rate 19 /min Height 67 inches 5'7" BMI (Body Mass Index) 32.1 kg/m2 O2 % BldC Oximetry 98 % Waist Circumference 42 07/14/2017 3:10pm Weight 206.00 lb Weight 93.442 kg BP Systolic 128 mmHg BP Diastolic 74 mmHg Heart Rate 74 /min Body Temperature 97.0 F Respiratory Rate 16 /min O2 % BldC Oximetry 98 % 05/19/2017 3:38pm Weight 194.00 lb Weight 87.998 kg BP Systolic 126 mmHg BP Diastolic 82 mmHg Heart Rate 76 /min Body Temperature 98.4 F Respiratory Rate 18 /min O2 % BldC Oximetry 97 % 05/05/2017 1:41pm Weight 204.00 lb Weight 92.534 kg BP Systolic 130 mmHg BP Diastolic 86 mmHg Heart Rate 68 /min Body Temperature 98.5 F Respiratory Rate 16 /min O2 % BldC Oximetry 97 % 03/31/2017 3:01pm Weight 208.00 lb Weight 94.349 kg BP Systolic 132 mmHg BP Diastolic 78 mmHg Heart Rate 67 /min Body Temperature 96.8 F Respiratory Rate 16 /min O2 % BldC Oximetry 97 % 03/28/2017 4:40pm Weight 205.00 lb Weight 92.988 kg BP Systolic 120 mmHg BP Diastolic 80 mmHg Heart Rate 68 /min Body Temperature 98.5 F Respiratory Rate 14 /min 12/18/2016 11:29am Weight 207.00 lb Weight 93.895 kg BP Systolic 126 mmHg BP Diastolic 82 mmHg Heart Rate 80 /min Body Temperature 98.5 F Respiratory Rate 16 /min O2 % BldC Oximetry 97 % 07/09/2016 4:19pm Weight 205.00 lb Weight 92.988 kg BP Systolic 120 mmHg BP Diastolic 76 mmHg Heart Rate 78 /min Body Temperature 98.2 F O2 % BldC Oximetry 98 % 07/06/2016 10:43am Weight 205.00 lb Weight 92.988 kg BP Systolic 112 mmHg BP Diastolic 74 mmHg Heart Rate 72 /min Body Temperature 97.9 F 05/10/2016 2:16pm Weight 200.00 lb Weight 90.720 kg BP Systolic 109 mmHg BP Diastolic 68 mmHg Heart Rate 92 /min 04/29/2016 2:27pm Weight 197.00 lb Weight 89.359 kg BP Systolic 112 mmHg BP Diastolic 76 mmHg Heart Rate 83 /min Body Temperature 99.4 F Respiratory Rate 17 /min Height 66.5 inches 5'6.50" BMI (Body Mass Index) 31.3 kg/m2 O2 % BldC Oximetry 98 % 04/01/2016 12:03pm Weight 203.00 lb Weight 92.081 kg BP Systolic 130 mmHg BP Diastolic 86 mmHg Heart Rate 69 /min Body Temperature 98.5 F Respiratory Rate 16 /min O2 % BldC Oximetry 99 % 03/30/2016 9:59am Weight 202.00 lb Weight 91.627 kg BP Systolic 140 mmHg BP Diastolic 80 mmHg Heart Rate 72 /min Body Temperature 98.3 F Right Visual Acuity Distance 20/30 Left Visual Acuity Distance 20/50 Both Visual Acuity Distance 20/30 02/28/2016 11:36am Weight 200.00 lb Weight 90.720 kg BP Systolic 140 mmHg BP Diastolic 80 mmHg Heart Rate 84 /min Body Temperature 98.1 F 01/03/2016 3:08pm Weight 203.00 lb Weight 92.081 kg BP Systolic 140 mmHg BP Diastolic 90 mmHg Heart Rate 79 /min O2 % BldC Oximetry 95 % 04/26/2015 2:14pm Weight 205.00 lb Weight 92.988 kg BP Systolic 132 mmHg BP Diastolic 90 mmHg Heart Rate 80 /min Height 66 inches 5'6" BMI (Body Mass Index) 33.1 kg/m2 04/12/2015 4:37pm Weight 209.00 lb Weight 94.802 kg BP Systolic 110 mmHg BP Diastolic 78 mmHg Heart Rate 68 /min 02/21/2015 11:04am Weight 204.00 lb Weight 92.534 kg BP Systolic 120 mmHg BP Diastolic 80 mmHg Heart Rate 88 /min 11/09/2014 3:57pm Weight 200.00 lb Weight 90.720 kg BP Systolic 110 mmHg BP Diastolic 72 mmHg Heart Rate 62 /min 10/31/2014 2:40pm Weight 201.00 lb Weight 91.174 kg BP Systolic 120 mmHg BP Diastolic 78 mmHg Heart Rate 72 /min 04/13/2014 11:24am Weight 195.00 lb Weight 88.452 kg BP Systolic 124 mmHg BP Diastolic 80 mmHg Heart Rate 72 /min 04/08/2014 10:25am Weight 195.00 lb Weight 88.452 kg BP Systolic 120 mmHg BP Diastolic 80 mmHg Heart Rate 76 /min 04/05/2014 1:47pm Weight 192.00 lb Weight 87.091 kg BP Systolic 120 mmHg BP Diastolic 78 mmHg Heart Rate 80 /min 01/31/2014 3:39pm Weight 194.00 lb Weight 87.998 kg BP Systolic 120 mmHg BP Diastolic 70 mmHg Heart Rate 60 /min 01/17/2014 11:40am Weight 194.00 lb Weight 87.998 kg BP Systolic 130 mmHg BP Diastolic 80 mmHg Heart Rate 76 /min Body Temperature 97.7 F 12/02/2013 10:37am Weight 203.00 lb Weight 92.081 kg BP Systolic 148 mmHg BP Diastolic 80 mmHg Heart Rate 88 /min Body Temperature 97.8 F 11/18/2013 1:26pm Weight 205.00 lb Weight 92.988 kg BP Systolic 138 mmHg BP Diastolic 86 mmHg Heart Rate 76 /min Body Temperature 98.4 F 10/20/2013 4:26pm Weight 206.00 lb Weight 93.442 kg BP Systolic 144 mmHg BP Diastolic 74 mmHg Heart Rate 60 /min 10/06/2013 3:14pm Weight 209.00 lb Weight 94.802 kg BP Systolic 144 mmHg BP Diastolic 88 mmHg Heart Rate 64 /min 05/17/2013 12:56pm Weight 204.00 lb Weight 92.534 kg BP Systolic 112 mmHg BP Diastolic 70 mmHg Heart Rate 80 /min Height 67 inches 5'7" BMI (Body Mass Index) 31.9 kg/m2 Waist Circumference 41.5 01/13/2013 3:25pm Weight 203.00 lb Weight 92.081 kg BP Systolic 122 mmHg BP Diastolic 84 mmHg Heart Rate 80 /min Body Temperature 98.1 F 10/30/2012 2:41pm Weight 201.00 lb Weight 91.174 kg BP Systolic 120 mmHg BP Diastolic 90 mmHg Heart Rate 84 /min Height 66.75 inches 5'6.75" BMI (Body Mass Index) 31.7 kg/m2 01/31/2012 2:51pm Weight 205.00 lb Weight 92.988 kg BP Systolic 116 mmHg BP Diastolic 80 mmHg Heart Rate 80 /min 01/17/2012 11:14am Weight 201.00 lb Weight 91.174 kg BP Systolic 120 mmHg BP Diastolic 82 mmHg Heart Rate 62 /min Body Temperature 97.8 F 01/10/2012 2:12pm Weight 205.00 lb Weight 92.988 kg BP Systolic 130 mmHg BP Diastolic 90 mmHg Heart Rate 88 /min Body Temperature 98.2 F 12/20/2011 8:53am Weight 204.00 lb Weight 92.534 kg BP Systolic 120 mmHg BP Diastolic 72 mmHg Heart Rate 76 /min 12/16/2011 11:14am Weight 202.00 lb Weight 91.627 kg BP Systolic 122 mmHg BP Diastolic 84 mmHg Heart Rate 88 /min 12/09/2011 3:27pm Weight 208.00 lb Weight 94.349 kg BP Systolic 134 mmHg BP Diastolic 80 mmHg Heart Rate 80 /min 08/29/2011 1:26pm Weight 200.00 lb Weight 90.720 kg BP Systolic 130 mmHg BP Diastolic 72 mmHg Heart Rate 96 /min Height 67.5 inches 5'7.50" BMI (Body Mass Index) 30.9 kg/m2 05/08/2011 4:18pm Weight 200.00 lb Weight 90.720 kg BP Systolic 130 mmHg BP Diastolic 60 mmHg Heart Rate 72 /min Body Temperature 97.2 F 11/09/2010 3:59pm Weight 192.00 lb Weight 87.091 kg BP Systolic 118 mmHg BP Diastolic 60 mmHg Heart Rate 68 /min Body Temperature 97.8 F 08/06/2010 10:48am Weight 192.00 lb Weight 87.091 kg BP Systolic 120 mmHg BP Diastolic 80 mmHg Heart Rate 84 /min Height 67 inches 5'7" BMI (Body Mass Index) 30.1 kg/m2 07/30/2010 2:23pm Weight 191.00 lb Weight 86.638 kg BP Systolic 116 mmHg BP Diastolic 82 mmHg Heart Rate 68 /min 07/16/2010 8:32am Weight 190.00 lb Weight 86.184 kg BP Systolic 140 mmHg BP Diastolic 100 mmHg Heart Rate 96 /min Height 67 inches 5'7" BMI (Body Mass Index) 29.8 kg/m2 05/16/2010 4:04pm Weight 195.00 lb Weight 88.452 kg BP Systolic 150 mmHg BP Diastolic 100 mmHg Heart Rate 96 /min Body Temperature 96.4 F 06/12/2009 1:31pm Weight 189.00 lb Weight 85.730 kg BP Systolic 120 mmHg BP Diastolic 70 mmHg Heart Rate 76 /min Height 66.5 inches 5'6.50" BMI (Body Mass Index) 30.0 kg/m2 09/05/2008 9:31am Weight 181.00 lb Weight 82.102 kg BP Systolic 138 mmHg BP Diastolic 90 mmHg Heart Rate 64 /min 07/15/2008 9:03am Weight 181.00 lb Weight 82.102 kg BP Systolic 120 mmHg BP Diastolic 80 mmHg Heart Rate 72 /min 07/04/2008 1:37pm Weight 182.00 lb Weight 82.555 kg BP Systolic 144 mmHg BP Diastolic 90 mmHg Heart Rate 76 /min Body Temperature 98.7 F 06/27/2008 4:20pm Weight 184.00 lb Weight 83.462 kg BP Systolic 128 mmHg BP Diastolic 78 mmHg Heart Rate 76 /min 06/21/2008 3:22pm Weight 181.00 lb Weight 82.102 kg BP Systolic 128 mmHg BP Diastolic 78 mmHg Body Temperature 100.2 F 06/10/2008 8:32am Weight 184.00 lb Weight 83.462 kg BP Systolic 122 mmHg BP Diastolic 82 mmHg Heart Rate 68 /min Height 67 inches 5'7" BMI (Body Mass Index) 28.8 kg/m2 05/24/2008 3:04pm Weight 184.00 lb Weight 83.462 kg BP Systolic 128 mmHg BP Diastolic 82 mmHg Heart Rate 68 /min Body Temperature 98.1 F Height 67 inches 5'7" BMI (Body Mass Index) 28.8 kg/m2 05/13/2008 12:07pm Weight 133.00 lb Weight 60.329 kg BP Systolic 140 mmHg BP Diastolic 60 mmHg Heart Rate 64 /min Body Temperature 98.5 F oral Height 67 inches 5'7" BMI (Body Mass Index) 20.8 kg/m2 12/28/2007 3:07pm Weight 175.00 lb Weight 79.380 kg BP Systolic 134 mmHg BP Diastolic 88 mmHg Heart Rate 68 /min Height 67 inches 5'7" BMI (Body Mass Index) 27.4 kg/m2 09/28/2007 3:37pm Weight 181.00 lb Weight 82.102 kg BP Systolic 124 mmHg BP Diastolic 68 mmHg Heart Rate 76 /min Height 67 inches 5'7" BMI (Body Mass Index) 28.3 kg/m2 07/29/2007 3:55pm Weight 190.00 lb Weight 86.184 kg BP Systolic 130 mmHg BP Diastolic 90 mmHg Heart Rate 60 /min Respiratory Rate 18 /min Height 67 inches 5'7" BMI (Body Mass Index) 29.8 kg/m2 O2 % BldC Oximetry 98 % Room Air 06/08/2007 12:48pm Weight 189.00 lb Weight 85.730 kg BP Systolic 124 mmHg BP Diastolic 76 mmHg Heart Rate 78 /min Height 67 inches 5'7" BMI (Body Mass Index) 29.6 kg/m2 05/21/2006 1:41pm Weight 187.00 lb Weight 84.823 kg BP Systolic 110 mmHg BP Diastolic 62 mmHg Heart Rate 68 /min Height 67 inches 5'7" BMI (Body Mass Index) 29.3 kg/m2 04/07/2006 3:15pm Weight 180.00 lb Weight 81.648 kg BP Systolic 118 mmHg BP Diastolic 80 mmHg Heart Rate 76 /min Height 67 inches 5'7" BMI (Body Mass Index) 28.2 kg/m2 03/05/2006 4:07pm Weight 189.00 lb Weight 85.730 kg BP Systolic 130 mmHg BP Diastolic 72 mmHg Heart Rate 68 /min Height 67 inches 5'7" BMI (Body Mass Index) 29.6 kg/m2 02/08/2005 11:27am Weight 189.00 lb Weight 85.730 kg BP Systolic 118 mmHg BP Diastolic 74 mmHg Heart Rate 80 /min Height 67 inches 5'7" BMI (Body Mass Index) 29.6 kg/m2 12/19/2004 1:53pm Weight 191.00 lb Weight 86.638 kg BP Systolic 118 mmHg BP Diastolic 80 mmHg Heart Rate 84 /min Respiratory Rate 18 /min Height 67 inches 5'7" BMI (Body Mass Index) 29.9 kg/m2 08/24/2004 10:23am Weight 189.00 lb Weight 85.730 kg BP Systolic 122 mmHg BP Diastolic 80 mmHg Heart Rate 76 /min Respiratory Rate 18 /min 05/28/2004 4:02pm Weight 192.00 lb Weight 87.091 kg BP Systolic 134 mmHg BP Diastolic 90 mmHg Heart Rate 80 /min Body Temperature 98.1 F 03/26/2004 2:36pm Weight 193.00 lb Weight 87.545 kg BP Systolic 130 mmHg BP Diastolic 70 mmHg 03/31/2003 3:26pm Weight 192.50 lb Weight 87.318 kg BP Systolic 142 mmHg BP Diastolic 84 mmHg Heart Rate 76 /min Body Temperature 99.6 F 02/10/2003 4:02pm Weight 194.00 lb Weight 87.998 kg BP Systolic 130 mmHg BP Diastolic 98 mmHg 10/27/2002 3:16pm Weight 188.00 lb Weight 85.277 kg BP Systolic 122 mmHg BP Diastolic 80 mmHg Heart Rate 76 /min Respiratory Rate 18 /min Height 68 inches BMI (Body Mass Index) 28.6 kg/m2 Results Test Date Facility Test Result H/L Range Note Laboratory test 11/06/2018 In House Lab Glucose By 120 High 78-110 finding [phone] Moniter Laboratory test 11/06/2018 [facility] Hemoglobin A1c <pending> finding [phone] (Glyco HGB) Comp Metabolic 11/06/2018 [facility] Sodium 140 mmol/ L N 135-145 1 Panel [phone] Potassium 3.9 mmol/L N 3.5-5.0 Chloride 106 mmol/L N 101-111 Co2 Carbon Dioxide 26 mmol/L N 22-32 Anion Gap 8 mmol/L N 2-11 Glucose 125 mg/dL High 70-100 Blood Urea Nitrogen 24 mg/dL N 6-24 Creatinine 0.88 mg/dL N 0.67-1.17 BUN/Creatinine Ratio 27.3 High 8-20 Calcium 10.0 mg/dL N 8.6-10.3 Total Protein 7.1 g/dL N 6.4-8.9 Albumin 4.8 g/dL N 3.2-5.2 Globulin 2.3 g/dL N 2-4 Albumin/Globulin Ratio 2.1 N 1-3 Total Bilirubin 0.60 mg/dL N 0.2-1.0 Alkaline Phosphatase 73 U/L N 34-104 Alt 45 U/L N 7-52 Ast 27 U/L N 13-39 Egfr Non- 87.5 >60 Egfr 105.8 >60 2 Laboratory test 11/06/2018 [facility] Magnesium 2.3 mg/dL N 1.9-2.7 3 finding [phone] Laboratory test 11/06/2018 In House Lab Hemoglobin A1c 5.8 finding ([phone] Poct Order 11/06/2018 In Office EKG <pending> Laboratory test 07/03/2018 [facility] PSA Screening 4.751 High 0-4.0 4 finding [phone] Basic Metabolic 04/15/2018 [facility] Sodium 143 mmol /L N 135-145 5 Panel [phone] Potassium 4.1 mmol/L N 3.5-5.0 Chloride 105 mmol/L N 101-111 Co2 Carbon Dioxide 31 mmol/L N 22-32 Anion Gap 7 mmol/L N 2-11 Glucose 104 mg/dL High 70-100 Blood Urea Nitrogen 21 mg/dL N 6-24 Creatinine 0.85 mg/dL N 0.67-1.17 BUN/Creatinine Ratio 24.7 High 8-20 Calcium 9.7 mg/dL N 8.6-10.3 Egfr Non- 91.3 >60 Egfr 110.5 >60 6 CBC Auto Diff 04/15/2018 [facility] White Blood 9.6 10^3/uL N 3.5-10.8 [phone] Count Red Blood Count 5.05 10^6/uL N 4.00-5.40 Hemoglobin 16.1 g/dL N 14.0-18.0 Hematocrit 46 % N 42-52 Mean Corpuscular Volume 91 fL N 80-94 Mean Corpuscular Hemoglobin 32 pg High 27-31 Mean Corpuscular HGB Conc 35 g/dL N 31-36 Red Cell Distribution Width 13 % N 10.5-15 Platelet Count 238 10^3/uL N 150-450 Mean Platelet Volume 8.5 um3 N 7.4-10.4 Abs Neutrophils 5.8 10^3/uL N 1.5-7.7 Abs Lymphocytes 2.7 10^3/uL N 1.0-4.8 Abs Monocytes 0.8 10^3/uL N 0-0.8 Abs Eosinophils 0.2 10^3/uL N 0-0.6 Abs Basophils 0.1 10^3/uL N 0-0.2 Abs Nucleated RBC 0 10^3/uL Granulocyte % 60.9 % N 38-83 Lymphocyte % 28.1 % N 25-47 Monocyte % 8.1 % High 0-7 Eosinophil % 2.1 % N 0-6 Basophil % 0.8 % N 0-2 Nucleated Red Blood Cells % 0.1 Laboratory test 04/15/2018 [facility] Hemoglobin A1c 6.3 % High 4.0-5.6 7 finding [phone] Basic Metabolic 03/12/2018 [facility] Sodium 142 N 135-145 8 Panel [phone] mmol/L Potassium 4.2 mmol/L N 3.5-5.0 Chloride 106 mmol/L N 101-111 Co2 Carbon Dioxide 30 mmol/L N 22-32 Anion Gap 6 mmol/L N 2-11 Glucose 119 mg/dL High 70-100 Blood Urea Nitrogen 18 mg/dL N 6-24 Creatinine 0.88 mg/dL N 0.67-1.17 BUN/Creatinine Ratio 20.5 High 8-20 Calcium 9.7 mg/dL N 8.6-10.3 Egfr Non- 87.8 >60 Egfr 106.2 >60 9 Laboratory 03/12/2018 [facility] Hemoglobin A1c 6.2 % High 4.0-5.6 10 test finding [phone] Wound 02/04/2018 [facility] Wound/Misc SEE 11, Culture/Sensi [phone] Culture-Gram RESULT 12 Stain BELOW Laboratory 11/28/2017 [facility] PSA Screening 5.100 High 0-4.0 13 test finding [phone] CBC Auto Diff 08/22/2017 [facility] White Blood 10.1 N 3.5-10.8 [phone] Count 10^3/uL Red Blood Count 4.88 10^6/uL N 4.0-5.4 Hemoglobin 15.5 g/dL N 14.0-18.0 Hematocrit 44 % N 42-52 Mean Corpuscular Volume 90 fL N 80-94 Mean Corpuscular Hemoglobin 32 pg High 27-31 Mean Corpuscular HGB Conc 35 g/dL N 31-36 Red Cell Distribution Width 13 % N 10.5-15 Platelet Count 225 10^3/uL N 150-450 Mean Platelet Volume 8 um3 N 7.4-10.4 Abs Neutrophils 6.4 10^3/uL N 1.5-7.7 Abs Lymphocytes 2.6 10^3/uL N 1.0-4.8 Abs Monocytes 0.8 10^3/uL N 0-0.8 Abs Eosinophils 0.2 10^3/uL N 0-0.6 Abs Basophils 0.1 10^3/uL N 0-0.2 Abs Nucleated RBC 0 10^3/uL Granulocyte % 63.3 % N 38-83 Lymphocyte % 25.6 % N 25-47 Monocyte % 8.0 % High 0-7 Eosinophil % 2.2 % N 0-6 Basophil % 0.9 % N 0-2 Nucleated Red Blood Cells % 0 Lipid Profile 08/22/2017 [facility] Triglycerides 200 mg/dL 14 (Trig/Chol/HDL) [phone] Cholesterol 160 mg/dL 15 HDL Cholesterol 29.4 mg/dL 16 LDL Cholesterol 91 mg/dL 17 Laboratory test 08/22/2017 [facility] PSA Screening 4.892 High 0-4.000 18 finding [phone] Hepatitis C Antibody Nonreactive Nonreactive 19 Comp Metabolic Panel 08/22/2017 [facility] Sodium 139 mmol/L N 133-145 [phone] Potassium 4.1 mmol/L N 3.5-5.0 Chloride 103 mmol/L N 101-111 Co2 Carbon Dioxide 29 mmol/L N 22-32 Anion Gap 7 mmol/L N 2-11 Glucose 129 mg/dL High 70-100 Blood Urea Nitrogen 18 mg/dL N 6-24 Creatinine 0.88 mg/dL N 0.67-1.17 BUN/Creatinine Ratio 20.5 High 8-20 Calcium 9.3 mg/dL N 8.6-10.3 Total Protein 6.4 g/dL N 6.4-8.9 Albumin 4.3 g/dL N 3.2-5.2 Globulin 2.1 g/dL N 2-4 Albumin/Globulin Ratio 2.0 N 1-3 Total Bilirubin 0.70 mg/dL N 0.2-1.0 Alkaline Phosphatase 52 U/L N 34-104 Alt 28 U/L N 7-52 Ast 18 U/L N 13-39 Egfr Non- 87.8 >60 Egfr 112.9 >60 20 Laboratory test 04/28/2017 [facility] TSH (Thyroid 1.45 N 0.34-5.60 finding [phone] Stimulating mcIU/mL Horm) CKMB 04/28/2017 [facility] CKMB ng/mL 2.7 ng/mL N 0.6-6.3 [phone] Laboratory test 04/28/2017 [facility] Lactic Acid 1.2 mmol/L N 0.5-2.0 21 finding [phone] CBC Auto Diff 04/28/2017 [facility] White Blood 9.1 10^3/uL N 3.5-10.8 [phone] Count Red Blood Count 4.72 10^6/uL N 4.0-5.4 Hemoglobin 14.7 g/dL N 14.0-18.0 Hematocrit 42 % N 42-52 Mean Corpuscular Volume 90 fL N 80-94 Mean Corpuscular Hemoglobin 31 pg N 27-31 Mean Corpuscular HGB Conc 35 g/dL N 31-36 Red Cell Distribution Width 13 % N 10.5-15 Platelet Count 235 10^3/uL N 150-450 Mean Platelet Volume 8 um3 N 7.4-10.4 Abs Neutrophils 5.8 10^3/uL N 1.5-7.7 Abs Lymphocytes 2.3 10^3/uL N 1.0-4.8 Abs Monocytes 0.7 10^3/uL N 0-0.8 Abs Eosinophils 0.2 10^3/uL N 0-0.6 Abs Basophils 0.1 10^3/uL N 0-0.2 Abs Nucleated RBC 0 10^3/uL N Granulocyte % 63.6 % N 38-83 Lymphocyte % 25.1 % N 25-47 Monocyte % 7.7 % N 1-9 Eosinophil % 2.6 % N 0-6 Basophil % 1.0 % N 0-2 Nucleated Red Blood Cells % 0 N Laboratory test 04/28/2017 [facility] B Type 30 pg/ mL N 22 finding [phone] Natriuretic Peptide Inr/Protime 04/28/2017 [facility] Inr 0.96 N 0.89- [phone] 1.11 Laboratory test 04/28/2017 [facility] Troponin-I (TnI ) 0.00 ng/mL N <0.04 finding [phone] Laboratory test 04/28/2017 [facility] Partial Thrombo 31.8 seconds N 26.0- finding [phone] Time PTT 36.3 Comp Metabolic 04/28/2017 [facility] Sodium 138 mmol/ L N 133-1 Panel [phone] Potassium 3.7 mmol/L N 3.5-5.0 Chloride 105 mmol/L N 101-111 Co2 Carbon Dioxide 27 mmol/L N 22-32 Anion Gap 6 mmol/L N 2-11 Glucose 103 mg/dL High 70-100 Blood Urea Nitrogen 18 mg/dL N 6-24 Creatinine 0.90 mg/dL N 0.67-1.17 BUN/Creatinine Ratio 20.0 N 8-20 Calcium 9.5 mg/dL N 8.6-10.3 Total Protein 6.9 g/dL N 6.4-8.9 Albumin 4.2 g/dL N 3.2-5.2 Globulin 2.7 g/dL N 2-4 Albumin/Globulin Ratio 1.6 N 1-3 Total Bilirubin 0.40 mg/dL N 0.2-1.0 Alkaline Phosphatase 51 U/L N 34-104 Alt 25 U/L N 7-52 Ast 17 U/L N 13-39 Egfr Non- 85.8 N >60 Egfr 110.3 N >60 23 Laboratory test 04/28/2017 [facility] Magnesium 2.3 mg/dL N 1.9-2.7 finding [phone] Creatine Kinase 116 U/L N 10-223 Troponin-I (TnI) 0.00 ng/mL N <0.04 Myoglobin 28.2 ng/mL N 17.4-105.7 Laboratory test 04/23/2017 [facility] Troponin-I 0.00 ng/mL N <0.04 finding [phone] (TnI) Laboratory test 04/23/2017 [facility] Troponin-I 0.00 ng/mL N <0.04 finding [phone] (TnI) Hemoccult 04/08/2017 [facility] House [facility] Stool-Occult neg 1012 Neg (607)- - Blood #1 Stool-Occult Blood #2 neg 1013 Neg Stool-Occult Blood #3 neg 1014 Neg Hemoccult 03/31/2017 [facility] House [facility] Stool-Occult Blood #1 <pending> Neg (607)- - Stool-Occult Blood #2 <pending> Neg Stool-Occult Blood #3 <pending> Neg Laboratory test 11/28/2016 [facility] PSA Screening 3.713 N 0-4.0 24 finding [phone] ng/mL Laboratory test 05/30/2016 [facility] PSA Diagnostic 4.585 High 0-4.0 25 finding [phone] Laboratory test 04/23/2016 [facility] Hemoglobin A1c 6.3 % High Less than 26 finding [phone] (Glyco HGB) 6.0 Magnesium 2.3 mg/dL N 1.9-2.7 27 Lipid Profile 04/23/2016 [facility] Triglycerides 178 mg/dL N 28 (Trig/Chol/HDL) [phone] Cholesterol 168 mg/dL N 29 HDL Cholesterol 29.9 mg/dL N 30 LDL Cholesterol 103 mg/dL N 31 Comp Metabolic Panel 04/23/2016 [facility] Sodium 139 mmol/L N 133-145 [phone] Potassium 4.3 mmol/L N 3.5-5.0 Chloride 104 mmol/L N 101-111 Co2 Carbon Dioxide 28 mmol/L N 22-32 Anion Gap 7 mmol/L N 2-11 Glucose 136 mg/dL High 70-100 Blood Urea Nitrogen 20 mg/dL N 6-24 Creatinine 0.90 mg/dL N 0.67-1.17 BUN/Creatinine Ratio 22.2 High 8-20 Calcium 9.8 mg/dL N 8.6-10.3 Total Protein 6.8 g/dL N 6.4-8.9 Albumin 4.4 g/dL N 3.2-5.2 Globulin 2.4 g/dL N 2-4 Albumin/Globulin Ratio 1.8 N 1-3 Total Bilirubin 0.60 mg/dL N 0.2-1.0 Alkaline Phosphatase 59 U/L N 34-104 Alt 23 U/L N 7-52 Ast 16 U/L N 13-39 Egfr Non- 86.1 N >60 Egfr 110.7 N >60 32 Laboratory test 01/11/2016 [facility] Surgical SEE RESULT 33 finding [phone] Interface Order BELOW Laboratory test 07/20/2015 [facility] PSA Diagnostic 5.113 ng/mL High 0-4.0 34 finding [phone] Urine DIP 04/26/2015 [facility] House Lab Specific 1.025 High 1.01- (607)- - [place] 1.02 Urine pH 5 5-6 Leukocytes NEG Neg Urine Nitrites NEG Neg Total Protein, Urine NEG Neg Urine Glucose NORM Norm Urine Ketones NEG Neg Urobilinogen NORM Norm Urine Bilirubin NEG Neg Urine Blood NEG Neg CBC Auto Diff 04/19/2015 [facility] White Blood 8.7 10^3/uL N 4.8-10.8 35 [phone] Count Red Blood Count 5.00 10^6/uL N 4.0-5.4 Hemoglobin 15.4 g/dL N 14.0-18.0 Hematocrit 47 % N 42-52 Mean Corpuscular Volume 94 fL N 80-94 Mean Corpuscular Hemoglobin 31 pg N 27-31 Mean Corpuscular HGB Conc 33 g/dL N 31-36 Red Cell Distribution Width 13 % N 10.5-15 Platelet Count 218 10^3/uL N 150-450 Mean Platelet Volume 9 um3 N 7.4-10.4 Abs Neutrophils 5.4 10^3/uL N 1.5-7.7 Abs Lymphocytes 2.3 10^3/uL N 1.0-4.8 Abs Monocytes 0.7 10^3/uL N 0-0.8 Abs Eosinophils 0.2 10^3/uL N 0-0.6 Abs Basophils 0.1 10^3/uL N 0-0.2 Abs Nucleated RBC 0.01 10^3/uL N Granulocyte % 61.9 % N 38-83 Lymphocyte % 26.4 % N 25-47 Monocyte % 7.9 % N 1-9 Eosinophil % 2.8 % N 0-6 Basophil % 1.0 % N 0-2 Nucleated Red Blood Cells % 0.1 N Comp Metabolic Panel 04/19/2015 [facility] Sodium 139 mmol/L N 133-145 [phone] Potassium 4.3 mmol/L N 3.5-5.0 Chloride 102 mmol/L N 101-111 Co2 Carbon Dioxide 31 mmol/L N 22-32 Anion Gap 6 mmol/L N 2-11 Glucose 121 mg/dL High 70-100 Blood Urea Nitrogen 19 mg/dL N 6-24 Creatinine 0.94 mg/dL N 0.67-1.17 BUN/Creatinine Ratio 20.2 High 8-20 Calcium 9.5 mg/dL N 8.6-10.3 Total Protein 6.6 g/dL N 6.4-8.9 Albumin 4.5 g/dL N 3.2-5.2 Globulin 2.1 g/dL N 2-4 Albumin/Globulin Ratio 2.1 N 1-3 Total Bilirubin 0.60 mg/dL N 0.2-1.0 Alkaline Phosphatase 57 U/L N 34-104 Alt 25 U/L N 7-52 Ast 14 U/L N 13-39 Egfr Non- 82.1 N >60 Egfr 105.6 N >60 36 Lipid Profile 04/19/2015 [facility] Triglycerides 137 mg/dL N 37 (Trig/Chol/HDL) [phone] Cholesterol 162 mg/dL N 38 HDL Cholesterol 30.9 mg/dL N 39 LDL Cholesterol 104 mg/dL N 40 Laboratory test 04/19/2015 [facility] Hemoglobin A1c 5.9 % N Less than 41 finding [phone] 6.0 Laboratory test 04/10/2015 [facility] Troponin I 0.00 N <0.03 42 finding [phone] ng/mL CBC Auto Diff 04/10/2015 [facility] White Blood 8.6 N 4.8-10.8 [phone] Count 10^3/uL Red Blood Count 5.09 10^6/uL N 4.0-5.4 Hemoglobin 15.8 g/dL N 14.0-18.0 Hematocrit 47 % N 42-52 Mean Corpuscular Volume 93 fL N 80-94 Mean Corpuscular Hemoglobin 31 pg N 27-31 Mean Corpuscular HGB Conc 34 g/dL N 31-36 Red Cell Distribution Width 14 % N 10.5-15 Platelet Count 206 10^3/uL N 150-450 Mean Platelet Volume 8 um3 N 7.4-10.4 Abs Neutrophils 5.1 10^3/uL N 1.5-7.7 Abs Lymphocytes 2.6 10^3/uL N 1.0-4.8 Abs Monocytes 0.5 10^3/uL N 0-0.8 Abs Eosinophils 0.3 10^3/uL N 0-0.6 Abs Basophils 0.1 10^3/uL N 0-0.2 Abs Nucleated RBC 0.01 10^3/uL N Granulocyte % 60.0 % N 38-83 Lymphocyte % 30.1 % N 25-47 Monocyte % 6.1 % N 1-9 Eosinophil % 2.9 % N 0-6 Basophil % 0.9 % N 0-2 Nucleated Red Blood Cells % 0.1 N Laboratory test 04/10/2015 [facility] Troponin I 0.00 ng/mL N <0.03 43 finding [phone] Comp Metabolic 04/10/2015 [facility] Sodium 135 mmol/ L N 133-145 Panel [phone] Chloride 102 mmol/L N 101-111 Co2 Carbon Dioxide 25 mmol/L N 22-32 Glucose 229 mg/dL High 70-100 Blood Urea Nitrogen 23 mg/dL N 6-24 Creatinine 0.98 mg/dL N 0.67-1.17 BUN/Creatinine Ratio 23.5 High 8-20 Calcium 9.4 mg/dL N 8.6-10.3 Total Protein 6.7 g/dL N 6.4-8.9 Albumin 4.2 g/dL N 3.2-5.2 Globulin 2.5 g/dL N 2-4 Albumin/Globulin Ratio 1.7 N 1-3 Total Bilirubin 0.60 mg/dL N 0.2-1.0 Alkaline Phosphatase 54 U/L N 34-104 Alt 23 U/L N 7-52 Egfr Non- 78.3 N >60 Egfr 100.7 N >60 44 Potassium 4.2 mmol/L N 3.5-5.0 Anion Gap 8 mmol/L N 2-11 Ast 19 U/L N 13-39 Laboratory test 04/10/2015 [facility] Lactic Acid 1.5 mmol/L N 0.5-2.2 45 finding [phone] Laboratory test 01/18/2015 [facility] PSA Diagnostic 4.438 High 0-4.0 46 finding [phone] ng/mL CBC Auto Diff 11/02/2014 [facility] White Blood 10.6 N 4.8-10.8 [phone] Count 10^3/uL Red Blood Count 4.98 10^6/uL N 4.0-5.4 Hemoglobin 15.9 g/dL N 14.0-18.0 Hematocrit 45 % N 42-52 Mean Corpuscular Volume 91 fL N 80-94 Mean Corpuscular Hemoglobin 32 pg High 27-31 Mean Corpuscular HGB Conc 35 g/dL N 31-36 Red Cell Distribution Width 13 % N 10.5-15 Platelet Count 254 10^3/uL N 150-450 Mean Platelet Volume 8 um3 N 7.4-10.4 Abs Neutrophils 7.9 10^3/uL High 1.5-7.7 Abs Lymphocytes 1.7 10^3/uL N 1.0-4.8 Abs Monocytes 0.7 10^3/uL N 0-0.8 Abs Eosinophils 0.2 10^3/uL N 0-0.6 Abs Basophils 0.1 10^3/uL N 0-0.2 Abs Nucleated RBC 0.01 10^3/uL N Granulocyte % 75.1 % N 38-83 Lymphocyte % 16.0 % Low 25-47 Monocyte % 6.4 % N 1-9 Eosinophil % 1.9 % N 0-6 Basophil % 0.6 % N 0-2 Nucleated Red Blood Cells % 0.1 N Comp Metabolic Panel 11/02/2014 [facility] Sodium 137 mmol/L N 133-145 [phone] Potassium 3.9 mmol/L N 3.5-5.0 Chloride 104 mmol/L N 101-111 Co2 Carbon Dioxide 25 mmol/L N 22-32 Anion Gap 8 mmol/L N 2-11 Glucose 113 mg/dL High 70-100 Blood Urea Nitrogen 16 mg/dL N 6-24 Creatinine 0.87 mg/dL N 0.67-1.17 BUN/Creatinine Ratio 18.4 N 8-20 Calcium 9.4 mg/dL N 8.6-10.3 Total Protein 6.7 g/dL N 6.4-8.9 Albumin 4.4 g/dL N 3.2-5.2 Globulin 2.3 g/dL N 2-4 Albumin/Globulin Ratio 1.9 N 1-3 Total Bilirubin 0.40 mg/dL N 0.2-1.0 Alkaline Phosphatase 57 U/L N 34-104 Alt 24 U/L N 7-52 Ast 13 U/L N 13-39 Egfr Non- 89.8 N >60 Egfr 115.5 N >60 47 Laboratory test 11/02/2014 [facility] Troponin I 0.00 ng/mL N <0.03 48 finding [phone] CBC Auto Diff 10/28/2014 [facility] White Blood 8.3 N 4.8-10.8 [phone] Count 10^3/uL Red Blood Count 5.06 10^6/uL N 4.0-5.4 Hemoglobin 16.0 g/dL N 14.0-18.0 Hematocrit 47 % N 42-52 Mean Corpuscular Volume 93 fL N 80-94 Mean Corpuscular Hemoglobin 32 pg High 27-31 Mean Corpuscular HGB Conc 34 g/dL N 31-36 Red Cell Distribution Width 13 % N 10.5-15 Platelet Count 234 10^3/uL N 150-450 Mean Platelet Volume 8 um3 N 7.4-10.4 Abs Neutrophils 6.0 10^3/uL N 1.5-7.7 Abs Lymphocytes 1.7 10^3/uL N 1.0-4.8 Abs Monocytes 0.5 10^3/uL N 0-0.8 Abs Eosinophils 0.1 10^3/uL N 0-0.6 Abs Basophils 0.1 10^3/uL N 0-0.2 Abs Nucleated RBC 0.01 10^3/uL N Granulocyte % 71.4 % N 38-83 Lymphocyte % 20.1 % Low 25-47 Monocyte % 6.2 % N 1-9 Eosinophil % 1.6 % N 0-6 Basophil % 0.7 % N 0-2 Nucleated Red Blood Cells % 0.2 N Comp Metabolic Panel 10/28/2014 [facility] Sodium 138 mmol/L N 133-145 [phone] Potassium 3.9 mmol/L N 3.5-5.0 Chloride 106 mmol/L N 101-111 Co2 Carbon Dioxide 24 mmol/L N 22-32 Anion Gap 8 mmol/L N 2-11 Glucose 150 mg/dL High 70-100 Blood Urea Nitrogen 17 mg/dL N 6-24 Creatinine 0.88 mg/dL N 0.67-1.17 BUN/Creatinine Ratio 19.3 N 8-20 Calcium 9.6 mg/dL N 8.6-10.3 Total Protein 6.8 g/dL N 6.4-8.9 Albumin 4.6 g/dL N 3.2-5.2 Globulin 2.2 g/dL N 2-4 Albumin/Globulin Ratio 2.1 N 1-3 Total Bilirubin 0.30 mg/dL N 0.2-1.0 Alkaline Phosphatase 52 U/L N 34-104 Alt 24 U/L N 7-52 Ast 18 U/L N 13-39 Egfr Non- 88.6 N >60 Egfr 114.0 N >60 49 Laboratory test 10/28/2014 [facility] Magnesium 2.3 mg/dL N 1.9-2.7 finding [phone] Creatine Kinase 99 U/L N 10-223 CKMB 10/28/2014 [facility] CKMB ng/mL 2.2 ng/mL N 0.6-6.3 [phone] Laboratory test 10/28/2014 [facility] Troponin I 0.00 ng/mL N <0.03 50 finding [phone] TSH (Thyroid Stimulating Horm) 1.74 IU/mL N 0.34-5.60 Laboratory test 07/15/2014 [facility] PSA Diagnostic 4.358 High 0-4.0 51 finding [phone] ng/mL Surgical 02/04/2014 [facility] S RUN DATE: 52 Pathology [phone] 02/08/ <SEE NOTE> Hemoccult 11/24/2013 In House Lab Stool-Occult neg Neg (607)- - Blood #1 Stool-Occult Blood #2 neg Neg Stool-Occult Blood #3 neg Neg Laboratory test 11/18/2013 [facility] Erythrocyte Sed 6 mm/Hr N 0-20 finding [phone] Rate C Reactive Protein 1.38 mg/L N < 5.00 53 Comp Metabolic Panel 11/18/2013 [facility] Sodium 140 mmol/L N 133-145 [phone] Potassium 4.0 mmol/L N 3.7-5.6 Chloride 103 mmol/L N 101-111 Co2 Carbon Dioxide 28 mmol/L N 22-32 Anion Gap 9 mmol/L N 2-11 Glucose 101 mg/dL High 70-100 Blood Urea Nitrogen 13 mg/dL N 6-24 Creatinine 0.94 mg/dL N 0.67-1.17 BUN/Creatinine Ratio 13.8 N 8-20 Calcium 9.6 mg/dL N 8.6-10.3 Total Protein 6.9 g/dL N 6.4-8.9 Albumin 4.7 g/dL N 3.2-5.2 Globulin 2.2 g/dL N 2-4 Albumin/Globulin Ratio 2.1 N 1-3 Total Bilirubin 0.50 mg/dL N 0.2-1.0 Alkaline Phosphatase 65 U/L N 34-104 Alt 24 U/L N 7-52 Ast 15 U/L N 13-39 Egfr Non- 82.4 N >60 Egfr 106.0 N >60 54 CBC Auto Diff 11/18/2013 [facility] White Blood 9.3 10^3/uL N 4.8-10.8 [phone] Count Red Blood Count 4.99 10^6/uL N 4.0-5.4 Hemoglobin 15.6 g/dL N 14.0-18.0 Hematocrit 45 % N 42-52 Mean Corpuscular Volume 90 fL N 80-94 Mean Corpuscular Hemoglobin 31 pg N 27-31 Mean Corpuscular HGB Conc 35 g/dL N 31-36 Red Cell Distribution Width 13 % N 10.5-15 Platelet Count 234 10^3/uL N 150-450 Mean Platelet Volume 9 um3 N 7.4-10.4 Abs Neutrophils 5.6 10^3/uL N 1.5-7.7 Abs Lymphocytes 2.6 10^3/uL N 1.0-4.8 Abs Monocytes 0.8 10^3/uL N 0-0.8 Abs Eosinophils 0.3 10^3/uL N 0-0.6 Abs Basophils 0.1 10^3/uL N 0-0.2 Abs Nucleated RBC 0.02 10^3/uL N Granulocyte % 59.9 % N 38-83 Lymphocyte % 28.2 % N 25-47 Monocyte % 8.2 % N 1-9 Eosinophil % 2.9 % N 0-6 Basophil % 0.8 % N 0-2 Nucleated Red Blood Cells % 0.2 N Laboratory test 11/16/2013 [facility] TSH (Thyroid 1.59 IU/mL N 0.34-5.60 finding [phone] Stimulating Horm) Urine DIP 05/17/2013 In House Lab Leukocytes NEG Neg (607)- - Urine Nitrites NEG Neg Urine pH 5 5-6 Total Protein, Urine NEG Neg Urine Glucose NORM Norm Urine Ketones NEG Neg Urobilinogen NORM Norm Urine Bilirubin NEG Neg Urine Blood NEG Neg Specific [place] N/A Low 1.01-1.02 Lipid Profile 05/10/2013 [facility] Triglycerides 203 mg/dL High 40-200 (Trig/Chol/HDL) [phone] Cholesterol 194 mg/dL Less than 200 HDL Cholesterol 33 mg/dL Low 40-60 55 Cholesterol/HDL Ratio 5.9 Average High 1-4.44 LDL Cholesterol 120.4 High Less Than 100 56 Comp Metabolic Panel 05/10/2013 [facility] Sodium 141 mmol/L 133-145 [phone] Potassium 4.2 mmol/L 3.5-5.0 Chloride 108 mmol/L 101-111 Co2 Carbon Dioxide 26.0 mmol/L 22-32 Anion Gap 7.0 mmol/L 2-11 Glucose 102 mg/dL High 70-100 Blood Urea Nitrogen 16 mg/dL 6-24 Creatinine 0.90 mg/dL 0.50-1.40 BUN/Creatinine Ratio 17.8 8-20 Calcium 9.6 mg/dL 8.1-9.9 Total Protein 6.7 g/dL 6.2-8.1 Albumin 4.4 g/dL 3.6-5.4 Globulin 2.3 g/dL 2-4 Albumin/Globulin Ratio 1.9 1-3 Total Bilirubin 0.9 mg/dL 0.4-1.5 Alkaline Phosphatase 62 U/L 30-110 Alt 31 U/L 14-54 Ast 22 U/L 12-42 Egfr Non- 87.0 >60 Egfr 111.9 >60 57 Laboratory test 05/10/2013 [facility] Hemoglobin A1c 5.7 % Less than 58 finding [phone] 6.0 PSA Screening 5.593 ng/mL High 0-4.000 59 Laboratory test 01/17/2012 [facility] Fungus -------- -------- 60 finding [phone] Culture <SEE NOTE> Skin/Nails Fungal 01/17/2012 [facility] M 61 Identification - [phone] <SEE NOTE> [place] Urine DIP 08/29/2011 In House Lab Leukocytes NEG Neg (607)- - Urine Nitrites NEG Neg Urine pH 5 5-6 Total Protein, Urine NEG Neg Urine Glucose NORM Norm Urine Ketones NEG Neg Urobilinogen NORM Norm Urine Bilirubin NEG Neg Urine Blood NEG Neg Specific [place] NA Low 1.01-1.02 Lipid Profile 08/22/2011 [facility] Triglyceride 161 mg/dL 40-200 (Trig/Chol/HDL) [phone] Cholesterol 174 mg/dL Less Than 200 62 High Density Lipoprotein 27 mg/dL Low 40-60 63 Cholesterol/HDL Ratio 6.44 AVERAGE High 1-4.97 Low Density Lipoprotein 115 mg/dL High Less Than 100 64 Comp Metabolic Panel 08/22/2011 [facility] Sodium 141 mmol/L 135-145 [phone] Potassium 4.5 mmol/L 3.5-5.0 Chloride 105 mmol/L 101-111 Co2 (Carbon Dioxide) 28.0 mmol/L 22-32 Anion Gap 8.0 mmol/L 2-11 65 Glucose 118 mg/dL High 70-100 BUN 16 mg/dL 6-24 Creatinine 1.0 mg/dL 0.50-1.40 One Over Creatinine 1.00 BUN/Creatinine Ratio 16.0 8-20 Calcium 9.5 mg/dL 8.1-9.9 Total Protein 6.7 GM/DL 6.2-8.1 Albumin 4.3 GM/DL 3.6-5.4 Globulin 2.4 GM/DL 2-4 Albumin/Globulin Ratio 1.8 1-3 Bilirubin Total 0.9 mg/dL 0.4-1.5 66 Alkaline Phosphatase 59 U/L 39-117 Alt (SGPT) 39 U/L 17-63 Ast (Sgot) 25 U/L 12-42 eGFR Non- 77.3 > 60 eGFR 99.4 > 60 67 Laboratory test 08/22/2011 [facility] Hemoglobin A1c 6.1 % High Less Than 68 finding [phone] 6.0 PSA,Diagnostic 3.35 NG/ML 0-4 69 Urine DIP 08/06/2010 In House Lab Leukocytes NEG Neg (607)- - Urine Nitrites NEG Neg Urine pH 5 5-6 Total Protein, Urine NEG Neg Urine Glucose NORM Norm Urine Ketones NEG Neg Urobilinogen NORM Norm Urine Bilirubin NEG Neg Urine Blood NEG Neg Specific [place] N/A Low 1.01-1.02 Laboratory 07/30/2010 [facility] Surgical ----- 70 test finding [phone] Pathology <SEE NOTE> Urine DIP 07/16/2010 In House Lab Leukocytes NEG Neg (607)- - Urine Nitrites NEG Neg Urine pH 5 5-6 Total Protein, Urine NEG Neg Urine Glucose NORM Norm Urine Ketones NEG Neg Urobilinogen NORM Norm Urine Bilirubin NEG Neg Urine Blood NEG Neg Specific [place] N/A Low 1.01-1.02 Lipid Profile 07/09/2010 [facility] Triglyceride 167 mg/dL 40-200 (Trig/Chol/HDL) [phone] Cholesterol 184 mg/dL Less Than 200 71 High Density Lipoprotein 26 mg/dL Low 40-60 72 Cholesterol/HDL Ratio 7.08 AVERAGE High 1-4.97 Low Density Lipoprotein 125 mg/dL High Less Than 100 73 Comp Metabolic Panel 07/09/2010 [facility] Sodium 141 mmol/L 135-145 [phone] Potassium 4.5 mmol/L 3.5-5.0 Chloride 106 mmol/L 101-111 Co2 (Carbon Dioxide) 28.0 mmol/L 22-32 Anion Gap 7.0 mmol/L 2-11 74 Glucose 117 mg/dL High 70-100 BUN 14 mg/dL 6-24 Creatinine 0.77 mg/dL 0.50-1.40 One Over Creatinine 1.20 BUN/Creatinine Ratio 18.2 8-20 Calcium 9.5 mg/dL 8.1-9.9 Total Protein 7.0 GM/DL 6.2-8.1 Albumin 4.2 GM/DL 3.6-5.4 Globulin 2.8 GM/DL 2-4 Albumin/Globulin Ratio 1.5 1-3 Bilirubin Total 0.7 mg/dL 0.4-1.5 75 Alkaline Phosphatase 65 U/L 39-117 Alt (SGPT) 24 U/L 17-63 Ast (Sgot) 20 U/L 12-42 eGFR Non- 111.9 > 60 eGFR 135.4 > 60 76 CBC With 07/09/2010 [facility] White Blood 6.9 CUMM 4.8-10.8 Electronic Diff [phone] Count Red Cell Count 4.88 CUMM 4.6-6.2 Hemoglobin 15.9 g/dL 14.0-18.0 Hematocrit 45 % 42-52 Mean Corpuscular Volume 93 um3 80-94 Mean Corpuscular Hemoglob 33 pg High 27-31 Mean Corpuscular HGB Cone 35 g/dL 32-36 Redcell Distribution WDTH 13 % 10.5-15 Platelet Count 224 CUMM 150-450 Mean Platelet Volume 7.7 um3 7.4-10.4 Gran % 60.4 % 38-83 Lymph % 28.7 % 25-47 Mononuclear % 7.2 % 1-9 Eosinophil % 3.2 % 0-6 Basophil % 0.5 % 0-2 Abs Lymphs 2.0 1.0-4.8 Abs Mononuclear 0.5 0-0.8 Absolute Neutrophil Count 4.1 1.5-7.7 Abs Eosinophils 0.2 0-0.6 Abs Basophils 0 0-0.2 Laboratory test 07/09/2010 [facility] PSA,Diagnostic 2.21 NG/ML 0-4 77 finding [phone] Urine DIP 06/12/2009 In House Lab Leukocytes neg Neg (607)- - Urine Nitrites neg Neg Urine pH 5 5-6 Total Protein, Urine neg Neg Urine Glucose norm Norm Urine Ketones neg Neg Urobilinogen norm Norm Urine Bilirubin neg Neg Urine Blood neg Neg Specific [place] na Low 1.01-1.02 Laboratory test 06/05/2009 [facility] Hemoglobin A1c 5.6 % Less Than 78 finding [phone] 6.0 Comp Metabolic 06/05/2009 [facility] Sodium 142 135-145 Panel [phone] mmol/L Potassium 4.4 mmol/L 3.5-5.0 Chloride 107 mmol/L 101-111 Co2 (Carbon Dioxide) 28.0 mmol/L 22-32 Anion Gap 7.0 mmol/L 2-11 79 Glucose 112 mg/dL High 70-100 80 BUN 20 mg/dL 6-24 Creatinine 0.80 mg/dL 0.50-1.40 One Over Creatinine 1.20 BUN/Creatinine Ratio 25.0 High 8-20 Calcium 9.4 mg/dL 8.1-9.9 81 Total Protein 6.0 GM/DL Low 6.2-8.1 Albumin 4.2 GM/DL 3.6-5.4 Globulin 1.8 GM/DL Low 2-4 Albumin/Globulin Ratio 2.3 1-3 Bilirubin Total 0.8 mg/dL 0.4-1.5 82 Alkaline Phosphatase 57 U/L 39-117 Alt (SGPT) 27 U/L 17-63 Ast (Sgot) 18 U/L 12-42 eGFR Non- 107.5 > 60 eGFR 130.0 > 60 83 Lipid Profile 06/05/2009 [facility] Triglyceride 152 mg/dL 40-200 (Trig/Chol/HDL) [phone] Cholesterol 193 mg/dL Less Than 200 84 High Density Lipoprotein 32 mg/dL Low 40-60 85 Cholesterol/HDL Ratio 6.03 AVERAGE High 1-4.97 Low Density Lipoprotein 131 mg/dL High Less Than 100 86 Laboratory test 06/05/2009 [facility] PSA Screening 1.55 NG/ML 0-4 87 finding [phone] PSA,Diagnostic 11/04/2008 [facility] PSA Screening 1.78 NG/ML 0-4 88 [phone] Urine DIP 09/05/2008 [facility] House Lab Leukocytes NEG Neg (607)- - Urine Nitrites NEG Neg Urine pH 5 5-6 Total Protein, Urine NEG Neg Urine Glucose NORM Norm Urine Ketones NEG Neg Urobilinogen NORM Norm Urine Bilirubin NEG Neg Urine Blood NEG Neg Specific [place] NEG Low 1.01-1.02 Urine DIP 06/27/2008 In House Lab Leukocytes NEG Neg (607)- - Urine Nitrites NEG Neg Urine pH 5 5-6 Total Protein, Urine NEG Neg Urine Glucose NORM Norm Urine Ketones NEG Neg Urobilinogen NORM Norm Urine Bilirubin NEG Neg Urine Blood NEG Neg Specific [place] NA Low 1.01-1.02 CBC 06/27/2008 [facility] WBC 8.5 x103 4.3-10.9 [phone] RBC 4.75 x106 4.70-6.20 Hemoglobin 14.7 g/dL 13.0-17.0 Hematocrit 42.8 % 39.0-50.0 MCV 90.1 fl 82.0-98.0 MCH 30.9 pg 27.5-33.5 MCHC 34.3 g/dL 32.0-36.0 RDW 12.5 % 11.5-14.5 Platelet Count 205 x103 130-400 MPV 10.5 fl 6.5-10.5 Segmented Neutrophils 65.5 % 44.0-74.0 Lymphocytes 24.0 % 15.0-45.0 Monocytes 7.5 % 2.0-13.0 Eosinophils 2.6 % 0.0-6.0 Basophils 0.4 % 0.0-2.0 Neutrophil Absolute 5.6 x103 1.4-7.0 Lymphocytes Absolute 2.0 x103 1.0-3.4 Monocyte Absolute 0.6 x103 0.2-1.0 Eosinophil Absolute 0.2 x103 0.0-0.5 Basophil Absolute 0.0 x103 0.0-0.2 Comprehensive 06/27/2008 [facility] Glucose 126 mg/dL High 70-100 Metabolic [phone] BUN 14 mg/dL 5-21 Creatinine, Serum 1.1 mg/dL 0.6-1.5 Sodium 140 mmol/L 136-146 Potassium 3.9 mmol/L 3.5-5.3 Chloride 106 mmol/L 98-110 Carbon Dioxide 23 mmol/L 20-32 Albumin 4.6 g/dL 3.5-4.7 Protein, Total 6.6 g/dL 6.4-8.3 Calcium 9.0 mg/dL 8.4-10.4 Alkaline Phosphatase 56 U/L 10-118 Sgot (Ast) 18 U/L 3-40 SGPT (Alt) 32 U/L 7-50 Bilirubin, Total 0.40 mg/dL 0.30-1.20 GFR (Calculated) 06/27/2008 [facility] GFR (Calculated) > 60 89 [phone] Urine DIP 06/21/2008 [facility] House [facility] Leukocytes NEG Neg (607)- - Urine Nitrites NEG Neg Urine pH 5 5-6 Total Protein, Urine NEG Neg Urine Glucose NORM Norm Urine Ketones NEG Neg Urobilinogen NORM Norm Urine Bilirubin NEG Neg Urine Blood NEG Neg Specific [place] NA Low 1.01-1.02 Urine DIP 06/10/2008 [facility] House [facility] Leukocytes NEG Neg (607)- - Urine Nitrites NEG Neg Urine pH 5 5-6 Total Protein, Urine NEG Neg Urine Glucose NORM Norm Urine Ketones NEG Neg Urobilinogen NORM Norm Urine Bilirubin NEG Neg Urine Blood NEG Neg Specific [place] NORM Low 1.01-1.02 Laboratory test 06/03/2008 [facility] PSA Screening 2.65 NG/ML 0-4 90 finding [phone] Lipid Profile 06/03/2008 [facility] Triglyceride 186 mg/dL 40-200 (Trig/Chol/HDL) [phone] Cholesterol 187 mg/dL Less Than 200 91 High Density Lipoprotein 33 mg/dL Low 40-60 92 Cholesterol/HDL Ratio 5.67 AVERAGE High 1-4.97 Low Density Lipoprotein 117 mg/dL High Less Than 100 93 Comp Metabolic Panel 06/03/2008 [facility] Sodium 142 mmol/L 135-145 [phone] Potassium 4.5 mmol/L 3.5-5.0 Chloride 108 mmol/L 101-111 Co2 (Carbon Dioxide) 28.0 mmol/L 22-32 Anion Gap 6.0 mmol/L 2-11 94 Glucose 104 mg/dL High 70-100 95 BUN 21 mg/dL 6-24 Creatinine 1.00 mg/dL 0.50-1.40 One Over Creatinine 1.00 BUN/Creatinine Ratio 21.0 High 8-20 Calcium 9.6 mg/dL 8.1-9.9 96 Total Protein 6.3 GM/DL 6.2-8.1 Albumin 4.1 GM/DL 3.6-5.4 Globulin 2.2 GM/DL 2-4 Albumin/Globulin Ratio 1.9 1-3 Bilirubin Total 0.9 mg/dL 0.4-1.5 Alkaline Phosphatase 56 U/L 39-117 Alt (SGPT) 27 U/L 17-63 Ast (Sgot) 20 U/L 12-42 Laboratory test 06/03/2008 [facility] Hemoglobin A1c 5.6 % <6.0 97 finding [phone] Laboratory test 10/08/2007 [facility] Fasting Urine NEGATIVE Negative 98 finding [phone] Glucose Fasting Glucose 111 mg/dL High 70-110 1HR Glucose 193 mg/dL 99 Hemoglobin A1c 5.6 % <6.0 100 2HR Glucose 148 mg/dL 101 3HR Glucose 81 mg/dL 102 CBC With 09/11/2007 [facility] White Blood 11.6 CUMM High 4.8-10.8 Electronic Diff [phone] Count Stat Abs Basophils 0.2 0-0.2 Abs Eosinophils 0.1 0-0.6 Absolute Neutrophil Count 9.2 High 1.5-7.7 Abs Lymphs 1.3 1.0-4.8 Abs Mononuclear 0.8 0-0.8 Basophil % 1.5 % 0-2 Hematocrit 45 % 42-52 Hemoglobin 15.3 g/dL 14.0-18.0 Eosinophil % 1.2 % 0-6 Gran % 79.5 % 38-83 Lymph % 11.3 % Low 20-45 Mean Corpuscular HGB Cone 34 g/dL 32-36 Mean Corpuscular Hemoglob 31 pg 27-31 Mean Corpuscular Volume 91 um3 80-94 Mean Platelet Volume 7.6 um3 7.4-10.4 Mononuclear % 6.5 % 1-9 Platelet Count 287 CUMM 150-450 Red Cell Count 4.88 CUMM 4.6-6.2 Redcell Distribution WDTH 12 % 10.5-15 Basic Metabolic 09/11/2007 [facility] One Over Creatinine 0.90 Panel Stat [phone] Anion Gap 8.0 mmol/L 2-11 103 BUN 14 mg/dL 6-24 Calcium 9.2 mg/dL 8.7-10.2 Chloride 106 mmol/L 101-111 Co2 (Carbon Dioxide) 27.0 mmol/L 22-32 Glucose 126 mg/dL High 70-105 Potassium 4.0 mmol/L 3.5-5.0 Sodium 141 mmol/L 135-145 BUN/Creatinine Ratio 12.7 8-20 Creatinine 1.1 mg/dL 0.5-1.4 Protime 09/09/2007 [facility] Inr 1.03 104, 105 [phone] Protime 12.3 10.9-13.3 Laboratory test 09/09/2007 [facility] PTT (Aptt) 22.9 20.4-29.5 106 finding [phone] Basic Metabolic 09/09/2007 [facility] One Over 0.90 Panel [phone] Creatinine Anion Gap 7.0 mmol/L 2-11 107 BUN 17 mg/dL 6-24 Calcium 9.5 mg/dL 8.7-10.2 Chloride 104 mmol/L 101-111 Co2 (Carbon Dioxide) 28.0 mmol/L 22-32 Glucose 170 mg/dL High 70-105 Potassium 4.1 mmol/L 3.5-5.0 Sodium 139 mmol/L 135-145 BUN/Creatinine Ratio 15.5 8-20 Creatinine 1.1 mg/dL 0.5-1.4 CBC With 09/09/2007 [facility] White Blood 9.7 CUMM 4.8-10.8 Electronic Diff [phone] Count Abs Basophils 0 0-0.2 Abs Eosinophils 0.1 0-0.6 Absolute Neutrophil Count 7.8 High 1.5-7.7 Abs Lymphs 1.4 1.0-4.8 Abs Mononuclear 0.4 0-0.8 Basophil % 0.4 % 0-2 Hematocrit 44 % 42-52 Hemoglobin 15.7 g/dL 14.0-18.0 Eosinophil % 1.4 % 0-6 Gran % 79.3 % 38-83 Lymph % 14.7 % Low 20-45 Mean Corpuscular HGB Cone 36 g/dL 32-36 Mean Corpuscular Hemoglob 32 pg High 27-31 Mean Corpuscular Volume 90 um3 80-94 Mean Platelet Volume 7.5 um3 7.4-10.4 Mononuclear % 4.2 % 1-9 Platelet Count 298 CUMM 150-450 Red Cell Count 4.86 CUMM 4.6-6.2 Redcell Distribution WDTH 12 % 10.5-15 Basic Metabolic 09/03/2007 [facility] One Over Creatinine 1.11 108 Panel [phone] Anion Gap 6.0 mmol/L 2-11 109 BUN 13 mg/dL 6-24 Calcium 9.2 mg/dL 8.7-10.2 Chloride 103 mmol/L 101-111 Co2 (Carbon Dioxide) 28.0 mmol/L 22-32 Glucose 116 mg/dL High 70-105 Potassium 4.1 mmol/L 3.5-5.0 Sodium 137 mmol/L 135-145 BUN/Creatinine Ratio 14.4 8-20 Creatinine 0.9 mg/dL 0.5-1.4 Urine DIP 06/08/2007 [facility] House Lab Leukocytes neg Neg (607)- - Urine Nitrites neg Neg Urine pH 5 5-6 Total Protein, Urine nge Neg Urine Glucose norm Norm Urine Ketones neg Neg Urobilinogen norm Norm Urine Bilirubin neg Neg Urine Blood neg Neg Specific [place] na Low 1.01-1.02 Laboratory test 06/01/2007 [facility] PSA Screening 1.39 NG/ML 0-4 110 finding [phone] Lipid Profile 06/01/2007 [facility] Cholesterol/H 7.07 High 1-4.97 (Trig/Chol/HDL) [phone] DL Ratio AVERAGE Cholesterol 205 mg/dL High Less Than 200 111 Triglyceride 191 mg/dL 40-200 High Density Lipoprotein 29 mg/dL Low 40-60 112 Low Density Lipoprotein 138 mg/dL High Less Than 100 113 Comp Metabolic 06/01/2007 [facility] One Over Creatinine 0.83 Panel [phone] Anion Gap 8.0 mmol/L 2-11 114 Albumin/Globulin Ratio 1.6 1-3 Albumin 4.5 GM/DL 3.6-5.4 Alkaline Phosphatase 72 U/L 39-117 Alt (SGPT) 33 U/L 17-63 Ast (Sgot) 25 U/L 12-42 BUN 21 mg/dL 6-24 Calcium 9.6 mg/dL 8.7-10.2 Chloride 105 mmol/L 101-111 Co2 (Carbon Dioxide) 27.0 mmol/L 22-32 Globulin 2.8 GM/DL 2-4 Glucose 118 mg/dL High 70-105 Potassium 4.5 mmol/L 3.5-5.0 Sodium 140 mmol/L 135-145 Bilirubin Total 1.1 mg/dL 0.4-1.5 Total Protein 7.3 GM/DL 6.2-8.1 BUN/Creatinine Ratio 17.5 8-20 Creatinine 1.2 mg/dL 0.5-1.4 Urine DIP 05/21/2006 [facility] House Lab Leukocytes NEG Neg (607)- - Urine Nitrites NEG Neg Urine pH 5 5-6 Total Protein, Urine NEG Neg Urine Glucose NORM Norm Urine Ketones NEG Neg Urobilinogen NORM Norm Urine Bilirubin NEG Neg Urine Blood NEG Neg Specific [place] N/A Low 1.01-1.02 Comp Metabolic 05/14/2006 [facility] One Over Creatinine 1.00 Panel [phone] Anion Gap 7.0 mmol/L 2-11 115 Albumin/Globulin Ratio 2.0 1-3 Albumin 4.2 GM/DL 3.6-5.4 Alkaline Phosphatase 65 U/L 39-117 Alt (SGPT) 30 U/L 17-63 Ast (Sgot) 21 U/L 12-42 BUN 14 mg/dL 6-24 Calcium 9.2 mg/dL 8.7-10.2 Chloride 108 mmol/L 101-111 Co2 (Carbon Dioxide) 27.0 mmol/L 22-32 Globulin 2.1 GM/DL 2-4 Glucose 110 mg/dL High 70-105 Potassium 4.2 mmol/L 3.5-5.0 Sodium 142 mmol/L 135-145 Bilirubin Total 0.9 mg/dL 0.4-1.5 Total Protein 6.3 GM/DL 6.2-8.1 BUN/Creatinine Ratio 14.0 8-20 Creatinine 1.0 mg/dL 0.5-1.4 Lipid Profile 05/14/2006 [facility] Cholesterol/HDL 5.86 High 1-4.97 (Trig/Chol/HDL) [phone] Ratio AVERAGE Cholesterol 164 mg/dL Less Than 200 116 Triglyceride 177 mg/dL 40-200 High Density Lipoprotein 28 mg/dL Low 40-60 117 Low Density Lipoprotein 101 mg/dL High Less Than 100 118 Laboratory test 05/14/2006 [facility] PSA Screening 1.70 NG/ML 0.01-4.0 119 finding [phone] TSH 0.92 MIU/ML 0.34-5.60 CBC With Manual 05/14/2006 [facility] RBC Morphology NORMAL Diff [phone] White Blood Count 5.9 CUMM 4.8-10.8 Absolute Neutrophil Count 3.5 Hematocrit 44 % 42-52 Hemoglobin 15.1 g/dL 14.0-18.0 Eosenophil 1 % 0-6 Lymphocyte 31 % 5-47 Mean Corpuscular HGB Cone 35 g/dL 32-36 Mean Corpuscular Hemoglob 32 pg High 27-31 Mean Corpuscular Volume 93 um3 80-94 Monocyte 8 % 0-13 Mean Platelet Volume 8.7 um3 7.4-10.4 Platelet Count 235 CUMM 150-450 Polysegmented Neutrophil 60 % 38-83 Red Cell Count 4.72 CUMM 4.6-6.2 Redcell Distribution WDTH 13 % 10.5-15 Stool For 03/24/2006 [facility] Stool For Blood NEGATIVE Negative Blood [phone] CMP Stat 03/24/2006 [facility] One Over 1.00 [phone] Creatinine Anion Gap 10.0 mmol/L 2-11 120 Albumin/Globulin Ratio 1.9 1-3 Albumin 4.5 GM/DL 3.6-5.4 Alkaline Phosphatase 69 U/L 39-117 Alt (SGPT) 36 U/L 17-63 Ast (Sgot) 39 U/L 12-42 BUN 14 mg/dL 6-24 Calcium 9.7 mg/dL 8.7-10.2 Chloride 103 mmol/L 101-111 Co2 (Carbon Dioxide) 25.0 mmol/L 22-32 Globulin 2.4 GM/DL 2-4 Glucose 112 mg/dL High 70-105 Potassium 4.1 mmol/L 3.5-5.0 Sodium 138 mmol/L 135-145 Bilirubin Total 1.8 mg/dL High 0.4-1.5 Total Protein 6.9 GM/DL 6.2-8.1 BUN/Creatinine Ratio 14.0 8-20 Creatinine 1.0 mg/dL 0.5-1.4 CBC With 03/24/2006 [facility] White Blood 15.1 CUMM High 4.8-10.8 Electronic Diff [phone] Count Stat Abs Basophils 0.3 High 0-0.2 Abs Eosinophils 0.1 0-0.6 Absolute Neutrophil Count 11.6 High 1.5-7.7 Abs Lymphs 1.7 1.0-4.8 Abs Mononuclear 1.5 High 0-0.8 Basophil % 1.8 % 0-2 Hematocrit 45 % 42-52 Definitive Flag 1 121 Hemoglobin 15.8 g/dL 14.0-18.0 Eosinophil % 0.4 % 0-6 Gran % 76.7 % 38-83 Lymph % 11.3 % Low 20-45 Mean Corpuscular HGB Cone 35 g/dL 32-36 Mean Corpuscular Hemoglob 32 pg High 27-31 Mean Corpuscular Volume 91 um3 80-94 Mean Platelet Volume 8.0 um3 7.4-10.4 Mononuclear % 9.8 % High 1-9 Platelet Count 275 CUMM 150-450 Red Cell Count 4.93 CUMM 4.6-6.2 Redcell Distribution WDTH 13 % 10.5-15 CBC With 02/13/2006 [facility] White Blood 7.9 CUMM 4.8-10.8 Electronic Diff [phone] Count Stat Abs Basophils 0 0-0.2 Abs Eosinophils 0.2 0-0.6 Absolute Neutrophil Count 4.9 1.5-7.7 Abs Lymphs 2.1 1.0-4.8 Abs Mononuclear 0.5 0-0.8 Basophil % 0.6 % 0-2 Hematocrit 44 % 42-52 Hemoglobin 15.5 g/dL 14.0-18.0 Eosinophil % 2.7 % 0-6 Gran % 62.8 % 38-83 Lymph % 27.0 % 20-45 Mean Corpuscular HGB Cone 35 g/dL 32-36 Mean Corpuscular Hemoglob 32 pg High 27-31 Mean Corpuscular Volume 92 um3 80-94 Mean Platelet Volume 7.9 um3 7.4-10.4 Mononuclear % 6.9 % 1-9 Platelet Count 254 CUMM 150-450 Red Cell Count 4.84 CUMM 4.6-6.2 Redcell Distribution WDTH 13 % 10.5-15 CKMB 02/13/2006 [facility] CK For CKMB 180 U/L 0- 200 [phone] % CKMB 2 %MB 0-9 122 CKMB In NG/ML 3.0 NG/ML 0.3-4.0 Basic Metabolic 02/13/2006 [facility] One Over Creatinine 1.00 Panel Stat [phone] Anion Gap 10.0 mmol/L 2-11 123 BUN 17 mg/dL 6-24 Calcium 9.4 mg/dL 8.7-10.2 Chloride 105 mmol/L 101-111 Co2 (Carbon Dioxide) 27.0 mmol/L 22-32 Glucose 134 mg/dL High 70-105 Potassium 3.8 mmol/L 3.5-5.0 Sodium 142 mmol/L 135-145 BUN/Creatinine Ratio 17.0 8-20 Creatinine 1.0 mg/dL 0.5-1.4 Laboratory test 02/13/2006 [facility] Troponin-I 0.02 0-0.06 124 finding [phone] (TnI) NG/ML Laboratory test 01/22/2005 [facility] CECUM finding (607)- - Report POLYP Lipid Profile 12/20/2004 [facility] Cholesterol 189 mg/dL Less Than 125 (Trig/Chol/HDL) [phone] 200 Triglyceride 255 mg/dL High 40-200 High Density Lipoprotein 30 mg/dL Low 40-60 126 Low Density Lipoprotein 108 mg/dL High Less Than 100 127 Cholesterol/HDL Ratio 6.30 AVERAGE High 1-4.97 Laboratory test 12/20/2004 [facility] PSA Screening 1.2 NG/ML 0-4 128 finding [phone] Comp Metabolic 12/20/2004 [facility] Anion Gap 8.0 mmol/L 2-11 129 Panel [phone] Albumin/Globulin Ratio 1.9 1-3 Albumin 4.2 GM/DL 3.6-5.4 Alkaline Phosphatase 56 U/L 39-117 Alt (SGPT) 31 U/L 17-63 Ast (Sgot) 23 U/L 12-42 BUN 18 mg/dL 6-24 Calcium 9.6 mg/dL 8.7-10.2 Chloride 109 mmol/L 101-111 Co2 (Carbon Dioxide) 26.0 mmol/L 22-32 Creatinine 1.0 mg/dL 0.5-1.4 Globulin 2.2 GM/DL 2-4 Glucose 74 mg/dL 70-105 Potassium 3.8 mmol/L 3.5-5.0 Sodium 143 mmol/L 135-145 Bilirubin Total 0.6 mg/dL 0.4-1.5 Total Protein 6.4 GM/DL 6.2-8.1 BUN/Creatinine Ratio 18.0 8-20 Urine DIP 12/19/2004 [facility] House Lab Leukocytes NEG Neg (607)- - Urine Nitrites NEG Neg Urine pH 5 5-6 Total Protein, Urine NL Neg Urine Glucose NL Norm Urine Ketones NL Neg Urobolinogen NL Norm Urine Bilirubin NL Neg Urine Blood NL Neg Specific [place] N/A Low 1.01-1.02 Laboratory test 04/09/2004 [facility] [place] [place] NOSE/FOREHEAD finding (607)- - Report Laboratory test 02/11/2003 [facility] Surgical SKIN TAG 130 finding [phone] Pathology Lipid Profile 12/10/2002 [facility] Cholesterol/HD 6.46 AVERAGE High 1-4.9 (Trig/Chol/HDL) [phone] L Ratio 7 Cholesterol 181 mg/dL Less Than 200 131 Triglyceride 215 mg/dL High 40-200 High Density Lipoprotein 28 mg/dL Low 40-60 132 Low Density Lipoprotein 110 mg/dL High Less Than 100 133 CBC With 12/10/2002 [facility] Platelet Count 240 CUMM 150-450 Electronic Diff [phone] White Blood Count 7.6 CUMM 4.8-10.8 Abs Basophils 0.1 0-0.2 Abs Eosinophils 0.3 0-0.6 Abs Grans 4.8 1.5-7.7 Abs Lymphs 1.9 1.0-4.8 Abs Mononuclear 0.5 0-0.8 Basophil % 1.0 % 0-2 Hematocrit 45 % 42-52 Hemoglobin 15.7 g/dL 14.0-18.0 Eosinophil % 3.7 % 0-6 Gran % 63.3 % 38-83 Lymph % 25.3 % 20-45 Mean Corpuscular HGB Cone 35 g/dL 32-36 Mean Corpuscular Hemoglob 32 pg High 27-31 Mean Corpuscular Volume 91 um3 80-94 Mean Platelet Volume 8.4 um3 7.4-10.4 Mononuclear % 6.7 % 1-9 Red Cell Count 4.91 CUMM 4.6-6.2 Redcell Distribution WDTH 12 % 10.5-15 Comp Metabolic 12/10/2002 [facility] Albumin/Globulin Ratio 1.6 1-3 Panel [phone] Albumin 4.2 GM/DL 3.6-5.4 BUN 16 mg/dL 6-24 Calcium 9.7 mg/dL 8.7-10.2 Chloride 108 mmol/L 101-111 Co2 (Carbon Dioxide) 26.0 mmol/L 22-32 Creatinine 1.0 mg/dL 0.5-1.4 Globulin 2.6 GM/DL 2-4 Glucose 101 mg/dL 70-105 Potassium 4.2 mmol/L 3.5-5.0 Sodium 142 mmol/L 135-145 Total Protein 6.8 GM/DL 6.2-8.1 BUN/Creatinine Ratio 16.0 8-20 Alkaline Phosphatase 57 U/L 39-117 Alt (SGPT) 26 U/L 17-63 Ast (Sgot) 21 U/L 12-42 Bilirubin Total 0.6 mg/dL 0.4-1.5 Laboratory test 12/10/2002 [facility] PSA Screening 1.1 NG/ML 0-4 134 finding [phone] Urine DIP 10/27/2002 In House Lab Leukocytes NEG Neg (607)- - Urine Nitrites NEG Neg Urine pH 5 5-6 Total Protein, Urine NL Neg Urine Glucose NL Norm Urine Ketones NL Neg Urobolinogen NL Norm Urine Bilirubin NL Neg Urine Blood NL Neg 1 [id number] 2 Because ethnic data is not always readily available, this report includes an eGFR for both -Americans and non- Americans. The National Kidney Disease Education Program (NKDEP) does not endorse the use of the MDRD equation for patients that are not between the ages of 18 and 70, are , have extremes of body size, muscle mass, or nutritional status, or are non- or non-. According to the National Kidney Foundation, irrespective of diagnosis, the stage of the disease is based on the level of kidney function: Stage Description GFR(mL/min/1.73 m(2)) 1 Kidney damage with normal or decreased GFR 90 2 Kidney damage with mild decrease in GFR 60-89 3 Moderate decrease in GFR 30-59 4 Severe decrease in GFR 15-29 5 Kidney failure <15 (or dialysis) 3 [id number] 4 Serum levels of PSA measured using the [employer] DXI Hybritech immunoassay should not be interpreted as absolute evidence of the presence or absence of disease. The PSA value should be used in conjunction with other pertinent clinical diagnostic procedures. The values obtained with different assay methods or kits cannot be used interchangeably. 5 [id number] 6 Because ethnic data is not always readily available, this report includes an eGFR for both -Americans and non- Americans. The National Kidney Disease Education Program (NKDEP) does not endorse the use of the MDRD equation for patients that are not between the ages of 18 and 70, are , have extremes of body size, muscle mass, or nutritional status, or are non- or non-. According to the National Kidney Foundation, irrespective of diagnosis, the stage of the disease is based on the level of kidney function: Stage Description GFR(mL/min/1.73 m(2)) 1 Kidney damage with normal or decreased GFR 90 2 Kidney damage with mild decrease in GFR 60-89 3 Moderate decrease in GFR 30-59 4 Severe decrease in GFR 15-29 5 Kidney failure <15 (or dialysis) 7 Therapeutic target for the treatment of diabetes mellitus patients is <7% HBA1C, and in selective patients <6.0%. Please refer to [place] [employer] diabetic care guidelines for further information. 8 [id number] 9 Because ethnic data is not always readily available, this report includes an eGFR for both -Americans and non- Americans. The National Kidney Disease Education Program (NKDEP) does not endorse the use of the MDRD equation for patients that are not between the ages of 18 and 70, are , have extremes of body size, muscle mass, or nutritional status, or are non- or non-. According to the National Kidney Foundation, irrespective of diagnosis, the stage of the disease is based on the level of kidney function: Stage Description GFR(mL/min/1.73 m(2)) 1 Kidney damage with normal or decreased GFR 90 2 Kidney damage with mild decrease in GFR 60-89 3 Moderate decrease in GFR 30-59 4 Severe decrease in GFR 15-29 5 Kidney failure <15 (or dialysis) 10 Therapeutic target for the treatment of diabetes mellitus patients is <7% HBA1C, and in selective patients <6.0%. Please refer to [place] [employer] diabetic care guidelines for further information. 11 [id number] 12 SEE RESULT BELOW Name: WANDA VILLALOBOS : [address]: Ester Sinclair MD Acct: [id number] Unit: [id number] AGE: 62 Location: [facility] Re02/04/18 SEX: M Status: REG REF SPEC: [id number] CARLEY: 02/04/18-[address] [facility] [address]: Ester Sinclair MD REQ: [id number] RECD: 02/04/18 STATUS: COMP _ SOURCE: WOUND SPDESC: ORDERED: Culture Stain COMMENTS: [id number] Specimen Description Left pointer finger Procedure Result Reported Site Wound/Misc Gram Stain Final 02/05/18- 0721 ML 2+ Epithelial Cells No Neutrophils Observed 2+ Gram Positive Cocci in Clusters, resembling Staph Wound/Misc Culture Final 02/08/18- 1010 ML Organism 1 STREPTOCOCCUS INTERMEDIUS Quantity 2+ Organism 2 NORMAL BRANDON Quantity 1+ 1. STREPTOCOCCUS INTERMEDIUS M.I.C. RX --------- ------ Chloramphenicol 4 S Ampicillin <=0.06 S Penicillin <=0.03 S Meropenem 0.12 S Cefepime 0.5 S * Cefotaxime <=0.25 S Ceftriaxone <=0.25 S Levofloxacin 1 S Azithromycin <=0.25 S Clindamycin <=0.06 S Erythromycin <=0.06 S Tetracycline <=0.50 S Vancomycin 1 S * ML - Main Lab . END OF REPORT DEPARTMENT OF PATHOLOGY, [address] [place] [address] Shravan Batres M.D. Director [facility] # [id number] 13 Serum levels of PSA measured using the [employer] DXI Hybritech immunoassay should not be interpreted as absolute evidence of the presence or absence of disease. The PSA value should be used in conjunction with other pertinent clinical diagnostic procedures. The values obtained with different assay methods or kits cannot be used interchangeably. 14 Desirable: <150 Borderline High: 150-199 High: 200-499 Very High: >500 15 Desirable: <200 Borderline High: 200-239 High: >239 16 Low: <40 Desirable: 40-60 High: >60 17 Desirable: <100 Near Optimal: 100-129 Borderline High: 130-159 High: 160-189 Very High: >189 18 Serum levels of PSA measured using the [employer] DXI Hybritech immunoassay should not be interpreted as absolute evidence of the presence or absence of disease. The PSA value should be used in conjunction with other pertinent clinical diagnostic procedures. The values obtained with different assay methods or kits cannot be used interchangeably. 19 [id number] FASTING 10 HOUR 20 Because ethnic data is not always readily available, this report includes an eGFR for both -Americans and non- Americans. The National Kidney Disease Education Program (NKDEP) does not endorse the use of the MDRD equation for patients that are not between the ages of 18 and 70, are , have extremes of body size, muscle mass, or nutritional status, or are non- or non-. According to the National Kidney Foundation, irrespective of diagnosis, the stage of the disease is based on the level of kidney function: Stage Description GFR(mL/min/1.73 m(2)) 1 Kidney damage with normal or decreased GFR 90 2 Kidney damage with mild decrease in GFR 60-89 3 Moderate decrease in GFR 30-59 4 Severe decrease in GFR 15-29 5 Kidney failure <15 (or dialysis) 21 [facility] Severe Sepsis and Septic Shock Management Bundle Measure requires all lactic acids initially measuring >2.0 mmol/L be repeated. 22 >100 to <200 pg/mL: likely compensated congestive heart failure (CHF) 200 to 400 pg/mL: likely moderate CHF >400 pg/mL: likely moderate to severe CHF 23 Because ethnic data is not always readily available, this report includes an eGFR for both -Americans and non- Americans. The National Kidney Disease Education Program (NKDEP) does not endorse the use of the MDRD equation for patients that are not between the ages of 18 and 70, are , have extremes of body size, muscle mass, or nutritional status, or are non- or non-. According to the National Kidney Foundation, irrespective of diagnosis, the stage of the disease is based on the level of kidney function: Stage Description GFR(mL/min/1.73 m(2)) 1 Kidney damage with normal or decreased GFR 90 2 Kidney damage with mild decrease in GFR 60-89 3 Moderate decrease in GFR 30-59 4 Severe decrease in GFR 15-29 5 Kidney failure <15 (or dialysis) 24 Serum levels of PSA measured using the [employer] DXI Hybritech immunoassay should not be interpreted as absolute evidence of the presence or absence of disease. The PSA value should be used in conjunction with other pertinent clinical diagnostic procedures. The values obtained with different assay methods or kits cannot be used interchangeably. 25 Serum levels of PSA measured using the [employer] DXI Hybritech immunoassay should not be interpreted as absolute evidence of the presence or absence of disease. The PSA value should be used in conjunction with other pertinent clinical diagnostic procedures. The values obtained with different assay methods or kits cannot be used interchangeably. 26 Therapeutic target for the treatment of diabetes Mellitus patients is <7% HBA1C, and in selective patients <6.0%.Please refer to [place] [employer] Diabetic care guidelines for further information. 27 [id number] FASTING 10 HOUR 28 Desirable <150 Borderline high 150-199 High 200-499 Very High >500 29 Desirable <200 Borderline high 200-239 High >239 30 Low <40 Desirable: 40-60 High: >60 31 Desirable: <100 mg/dL Near Optimal: 100-129 mg/dL Borderline High: 130-159 mg/dL High: 160-189 mg/dL Very High: >189 mg/dL 32 Because ethnic data is not always readily available, this report includes an eGFR for both -Americans and non- Americans. The National Kidney Disease Education Program (NKDEP) does not endorse the use of the MDRD equation for patients that are not between the ages of 18 and 70, are , have extremes of body size, muscle mass, or nutritional status, or are non- or non-. According to the National Kidney Foundation, irrespective of diagnosis, the stage of the disease is based on the level of kidney function: Stage Description GFR(mL/min/1.73 m(2)) 1 Kidney damage with normal or decreased GFR 90 2 Kidney damage with mild decrease in GFR 60-89 3 Moderate decrease in GFR 30-59 4 Severe decrease in GFR 15-29 5 Kidney failure <15 (or dialysis) 33 SEE RESULT BELOW Name: WANDA VILLALOBOS : [address]: Marcin Ramirez MD Acct: [id number] Unit: [id number] AGE: 60 Location: ENDO Re01/11/16 SEX: M Status: REG REF SPEC: [id number] CARLEY: 01/11/16- SUBM DR: Marcin Ramirez MD REQ: [id number] RECD: 01/11/16 STATUS: SACHA DIAZ DR: Ester Sinclair MD _ ORDERED: LEVEL IV/3 FINAL DIAGNOSIS 1. Colon, ascending, biopsy: -- Tubular adenoma. -- No high grade dysplasia or malignancy. 2. Colon, transverse, biopsy: -- Tubular adenoma. -- No high grade dysplasia or malignancy. 3. Colon, descending, biopsy: -- Tubular adenoma. -- No high grade dysplasia or malignancy. CLINICAL HISTORY Negative colonoscopy 2010. Family history of colon cancer POST-OPERATIVE DIAGNOSIS Colonoscopy to cecum - small 1 x 3 mm. sessile polyp cold snare excised ascending colon; 4 x 4 mm. sessile polyp snare cautery excised transverse colon; 2 x 2 mm. sessile polyp cold snare excised descending colon; tics. Conclusions/Plan: Multiple polypectomies (small) GROSS DESCRIPTION 1. The specimen is received in formalin labeled, Ascending Colon Polyp, and consists of a 0.5 x 0.4 x 0.2 cm aggregate of wolf irregular soft tissue fragments, which is submitted entirely in one cassette. 2. The specimen is received in formalin labeled, Transverse Colon Polyp, and consists of a 0.5 x 0.4 x 0.3 cm wolf polypoid soft tissue fragment, which is inked, bisected and submitted entirely in one cassette. CONTINUED ON NEXT PAGE * ML=Testing performed at Main Lab DEPARTMENT OF PATHOLOGY, [address] [place] [address] Shravan Batres M.D. Director [facility] # [id number] RUN DATE: 01/15/16 [facility] LAB LIVE PAGE 2 Patient: WANDA VILLALOBOS [id number] (Continued) GROSS DESCRIPTION (Continued) GROSS DESCRIPTION (Continued) 3. The specimen is received in formalin labeled, Descending Colon Polyp, and consists of two wolf-white irregular soft tissue fragments measuring 0.2 x 0.2 x 0.2 cm and 0.4 x 0.2 x 0.1 cm, which are submitted entirely in one cassette. Signed (signature on file) Brianda Ibarra MD 0951 END OF REPORT * ML=Testing performed at Main Lab DEPARTMENT OF PATHOLOGY, [address] [place] [address] Shravan Batres M.D. Director [facility] # [id number] 34 Serum levels of PSA measured using the Mark [employer] DXI Hybritech immunoassay should not be interpreted as absolute evidence of the presence or absence of disease. The PSA value should be used in conjunction with other pertinent clinical diagnostic procedures. The values obtained with different assay methods or kits cannot be used interchangeably. 35 FASTING 10 HOUR 36 Because ethnic data is not always readily available, this report includes an eGFR for both -Americans and non- Americans. The National Kidney Disease Education Program (NKDEP) does not endorse the use of the MDRD equation for patients that are not between the ages of 18 and 70, are , have extremes of body size, muscle mass, or nutritional status, or are non- or non-. According to the National Kidney Foundation, irrespective of diagnosis, the stage of the disease is based on the level of kidney function: Stage Description GFR(mL/min/1.73 m(2)) 1 Kidney damage with normal or decreased GFR 90 2 Kidney damage with mild decrease in GFR 60-89 3 Moderate decrease in GFR 30-59 4 Severe decrease in GFR 15-29 5 Kidney failure <15 (or dialysis) 37 Desirable <150 Borderline high 150-199 High 200-499 Very High >500 38 Desirable <200 Borderline high 200-239 High >239 39 Low <40 Desirable: 40-60 High: >60 40 Desirable: <100 mg/dL Near Optimal: 100-129 mg/dL Borderline High: 130-159 mg/dL High: 160-189 mg/dL Very High: >189 mg/dL 41 Therapeutic target for the treatment of diabetes Mellitus patients is <7% HBA1C, and in selective patients <6.0%.Please refer to [place] [employer] Association Diabetic care guidelines for further information. 42 Reference Range and Interpretation: TnI (ng/mL) Interpretation Less Than 0.03 ng/mL Not supportive of diagnosis of VT 0.03 - 0.50 ng/mL Indeterminate: suggest serial studies if clinically indicated. Greater than 0.5 ng/mL Consistent with diagnosis of VT 43 Reference Range and Interpretation: TnI (ng/mL) Interpretation Less Than 0.03 ng/mL Not supportive of diagnosis of VT 0.03 - 0.50 ng/mL Indeterminate: suggest serial studies if clinically indicated. Greater than 0.5 ng/mL Consistent with diagnosis of VT 44 Because ethnic data is not always readily available, this report includes an eGFR for both -Americans and non- Americans. The National Kidney Disease Education Program (NKDEP) does not endorse the use of the MDRD equation for patients that are not between the ages of 18 and 70, are , have extremes of body size, muscle mass, or nutritional status, or are non- or non-. According to the National Kidney Foundation, irrespective of diagnosis, the stage of the disease is based on the level of kidney function: Stage Description GFR(mL/min/1.73 m(2)) 1 Kidney damage with normal or decreased GFR 90 2 Kidney damage with mild decrease in GFR 60-89 3 Moderate decrease in GFR 30-59 4 Severe decrease in GFR 15-29 5 Kidney failure <15 (or dialysis) 45 NO DEL ROSARIO RECD 46 Serum levels of PSA measured using the [employer] DXI Hybritech immunoassay should not be interpreted as absolute evidence of the presence or absence of disease. The PSA value should be used in conjunction with other pertinent clinical diagnostic procedures. The values obtained with different assay methods or kits cannot be used interchangeably. 47 Because ethnic data is not always readily available, this report includes an eGFR for both -Americans and non- Americans. The National Kidney Disease Education Program (NKDEP) does not endorse the use of the MDRD equation for patients that are not between the ages of 18 and 70, are , have extremes of body size, muscle mass, or nutritional status, or are non- or non-. According to the National Kidney Foundation, irrespective of diagnosis, the stage of the disease is based on the level of kidney function: Stage Description GFR(mL/min/1.73 m(2)) 1 Kidney damage with normal or decreased GFR 90 2 Kidney damage with mild decrease in GFR 60-89 3 Moderate decrease in GFR 30-59 4 Severe decrease in GFR 15-29 5 Kidney failure <15 (or dialysis) 48 Reference Range and Interpretation: TnI (ng/mL) Interpretation Less Than 0.03 ng/mL Not supportive of diagnosis of VT 0.03 - 0.50 ng/mL Indeterminate: suggest serial studies if clinically indicated. Greater than 0.5 ng/mL Consistent with diagnosis of VT 49 Because ethnic data is not always readily available, this report includes an eGFR for both -Americans and non- Americans. The National Kidney Disease Education Program (NKDEP) does not endorse the use of the MDRD equation for patients that are not between the ages of 18 and 70, are , have extremes of body size, muscle mass, or nutritional status, or are non- or non-. According to the National Kidney Foundation, irrespective of diagnosis, the stage of the disease is based on the level of kidney function: Stage Description GFR(mL/min/1.73 m(2)) 1 Kidney damage with normal or decreased GFR 90 2 Kidney damage with mild decrease in GFR 60-89 3 Moderate decrease in GFR 30-59 4 Severe decrease in GFR 15-29 5 Kidney failure <15 (or dialysis) 50 Reference Range and Interpretation: TnI (ng/mL) Interpretation Less Than 0.03 ng/mL Not supportive of diagnosis of VT 0.03 - 0.50 ng/mL Indeterminate: suggest serial studies if clinically indicated. Greater than 0.5 ng/mL Consistent with diagnosis of VT 51 Serum levels of PSA measured using the [employer] DXI Hybritech immunoassay should not be interpreted as absolute evidence of the presence or absence of disease. The PSA value should be used in conjunction with other pertinent clinical diagnostic procedures. The values obtained with different assay methods or kits cannot be used interchangeably. 52 RUN DATE: 02/08/14 [facility] LAB LIVE PAGE 1 RUN TIME: [address] [place] [id number] Specimen Inquiry Name: WANDA VILLALOBOS : [address]: John Santana MD Acct: [id number] Unit: [id number] AGE: 58 Location: [facility] Re02/04/14 SEX: M Status: REG REF SPEC: [id number] CARLEY: 02/04/14-[address] [facility] [address]: John Santana MD REQ: [id number] RECD: 02/04/14 STATUS: SACHA DIAZ DR: Ester Sinclair MD _ ORDERED: LEVEL IV FINAL DIAGNOSIS Skin and subcutaneous tissue, abdomen, excision: Ruptured epidermal inclusion cyst with abscess formation. CLINICAL HISTORY No history given GROSS DESCRIPTION The specimen is received in formalin labeled Wanda Villalobos, Abdominal Mass, and consists of a 4.4 x 3.0 x 2.1 cm. yellow irregular portion of soft tissue and fat which is partially surfaced by a 2.5 x 1.5 cm. wolf wrinkled hair bearing skin ellipse. The skin ellipse has a central 1.0 x 0.2 cm. linear defect. The skin surrounding this defect is mottled wolf-banerjee. Within the subcutaneous soft tissue subjacent to the described defect there is a 1.1 cm. length sinus tract. The tissue surrounding the sinus tract is mottled, wolf- brown. Received separately in the same container is a 3.2 x 1.6 x 0.8 cm. wolf-yellow, irregular portion of adipose tissue. The cut surface is glistening, mottled yellow-brown. The larger tissue is inked, the specimen is serially sectioned and software support representative sections are submitted in cassettes A and B. Signed (signature on file) Shravan Batres MD 1445 END OF REPORT * ML=Testing performed at Main Lab DEPARTMENT OF PATHOLOGY, [address] [place] [address] Shravan Batres M.D. Director [facility] # [id number] 53 Acute inflammation: >10.00 54 Because ethnic data is not always readily available, this report includes an eGFR for both -Americans and non- Americans. The National Kidney Disease Education Program (NKDEP) does not endorse the use of the MDRD equation for patients that are not between the ages of 18 and 70, are , have extremes of body size, muscle mass, or nutritional status, or are non- or non-. According to the National Kidney Foundation, irrespective of diagnosis, the stage of the disease is based on the level of kidney function: Stage Description GFR(mL/min/1.73 m(2)) 1 Kidney damage with normal or decreased GFR 90 2 Kidney damage with mild decrease in GFR 60-89 3 Moderate decrease in GFR 30-59 4 Severe decrease in GFR 15-29 5 Kidney failure <15 (or dialysis) 55 HDL Interpretation: Undesirable: High Risk: Less than 40 mg/dL Desirable: Low Risk: Greater than 60 mg/dL 56 LDL Interpretation: Low Risk Optimal Level: LDL Less than 100 mg/dL Near or Above Optimal: LDL 100-129 mg/dL Borderline High Risk: LDL 130-159 mg/dL High Risk: LDL 160-189 mg/dL Very High Risk: LDL Greater than 189 mg/dL 57 Because ethnic data is not always readily available, this report includes an eGFR for both -Americans and non- Americans. The National Kidney Disease Education Program (NKDEP) does not endorse the use of the MDRD equation for patients that are not between the ages of 18 and 70, are , have extremes of body size, muscle mass, or nutritional status, or are non- or non-. According to the National Kidney Foundation, irrespective of diagnosis, the stage of the disease is based on the level of kidney function: Stage Description GFR(mL/min/1.73 m(2)) 1 Kidney damage with normal or decreased GFR 90 2 Kidney damage with mild decrease in GFR 60-89 3 Moderate decrease in GFR 30-59 4 Severe decrease in GFR 15-29 5 Kidney failure <15 (or dialysis) 58 Therapeutic target for the treatment of diabetes Mellitus patients is <7% HBA1C, and in selective patients <6.0%.Please refer to [place] Diabetes Association Diabetic care guidelines for further information. 59 Serum levels of PSA measured using the Mark [employer]wick DXI Hybritech immunoassay should not be interpreted as absolute evidence of the presence or absence of disease. The PSA value should be used in conjunction with other pertinent clinical diagnostic procedures. The values obtained with different assay methods or kits cannot be used interchangeably. 60 RUN DATE: 02/17/12 [facility] NMI LIVE PAGE 1 RUN TIME: 1110 Specimen Inquiry RUN USER: INTERFACE Name: WANDA VILLALOBOS Status: REG REF Re01/17/12 Age/Sex: 56/M Unit#: [id number] Location: [facility]. : 55 SPEC #: [id number] CARLEY: 01/17/12 STATUS: COMP REQ #: [id number] RECD: 01/17/[address] [facility] [address]: Brittany CAIN,Clary Najera SOURCE: MYCOSES ENTR: 01/17/[address]: SPDES: SeeComment ORDERED: FUNGUS CULT SKI COMMENTS: LEFT LEG WOUND QUERIES: MEDENT REQUISITION # [id number] ACT WKST: AIDAN 02/17/12 #1 Procedure Result Verified Site > FUNGUS CULTURE SKIN/NAILS Final 02/17/12- 1110 ML Organism 1 MOLD REFERRED SPECIMEN ISOLATE SENT TO [facility] FOR IDENTIFICATION [facility] State Permit #[id number] [facility] bead Button [place] [address] DEPARTMENT OF PATHOLOGY, [facility] [employer] [place], [place] [address] [facility] Permit #[id number] Shravan Batres M.D. Director Marc Cardenas M.D. Bundle Helper 61 RUN DATE: 01/31/12 [facility] NMI LIVE PAGE 1 RUN TIME: 154 Specimen Inquiry RUN USER: INTERFACE Name: WANDA VILLALOBOS Status: REG REF Re01/17/12 Age/Sex: 56/M Unit#: [id number] Location: [facility] : 55 SPEC #: [id number] CARLEY: 01/17/12 STATUS: GEORGE REQ #: [id number] RECD: 01/17/[address]: Brittany CAIN,Clary Najera SOURCE: MYCOSES ENTR: 01/27/12-[address]: FRANKIE: SeeComment ORDERED: FUNGAL ID JOLYNN COMMENTS: WHITE COTTONY MOLD WITH YELLOW REVERSE (? DERMATOPHYTE) SPECIMEN SOURCE: LEFT ANTERIOR LEG Procedure Result Verified Site > FUNGAL IDENTIFICATION - [facility] Final 01/31/12- 1548 ML CULTURE REFERRED FOR ID, FUNGUS TRICHOPHYTON RUBRUM Test performed by: [facility] [address] [place], [place] [address] - [facility] State Permit #[id number] [address] [place] [address] DEPARTMENT OF PATHOLOGY, [address] [place] [address] [facility] Permit #[id number] Shravan Batres M.D. Director Marc Cardenas M.D. Bundle Helper 62 CHOLESTEROL INTERPRETATION: Desirable: Less than 200 MG/DL Borderline-High Risk: 200-239 MG/DL High-Risk: 240 MG/DL and over 63 HDL INTERPRETATION: Undesirable: High Risk: Less than 40 MG/DL Desirable: Low Risk: Greater than 60 MG/DL 64 LDL INTERPRETATION: Low Risk Optimal Level: LDL Less than 100 MG/DL Near or Above Optimal: LDL 100-129 MG/DL Borderline High Risk: LDL 130-159 MG/DL High Risk: LDL 160-189 MG/DL Very High Risk: LDL Greater than 189 MG/DL 65 Anion gap measurement may be of limited value in the presence of any alkalosis, especially in a combined acid base disorder. . 66 A metabolite of Naproxen, O-desmethylnaproxen, has been shown to interfere with the Jendrassik-Cherie method for measuring total bilirubin. Samples from patients who have taken Naproxen have shown spurious elevation in total bilirubin levels. 67 Because ethnic data is not always readily available, this report includes an eGFR for both -Americans and non- Americans. The National Kidney Disease Education Program (NKDEP) does not endorse the use of the MDRD equation for patients that are not between the ages of 18 and 70, are , have extremes of body size, muscle mass, or nutritional status, or are non- or non-. According to the National Kidney Foundation, irrespective of diagnosis, the stage of the disease is based on the level of kidney function: Stage Description GFR(mL/min/1.73 m(2)) 1 Kidney damage with normal or decreased GFR 90 2 Kidney damage with mild decrease in GFR 60-89 3 Moderate decrease in GFR 30-59 4 Severe decrease in GFR 15-29 5 Kidney failure <15 (or dialysis) 68 THERAPEUTIC TARGET FOR THE TREATMENT OF DIABETES MELLITUS PATIENTS IS <7% HBA1C, AND IN SELECTIVE PATIENTS <6.0%. PLEASE REFER TO [place] [employer] DIABETIC CARE GUIDELINES FOR FURTHER INFORMATION. 69 * SERUM LEVELS OF PSA MEASURED USING THE MARK [employer] ACCESS HYBRITECH IMMUNOASSAY SHOULD NOT BE INTERPRETED ABSOLUTE EVIDENCE OF THE PRESENCE OR ABSENCE OF DISEASE. THE PSA VALUE SHOULD BE USED IN CONJUNCTION WITH OTHER PERTINENT CLINICAL DIAGNOSTIC PROCEDURES. The values obtained with different assay methods or kits cannot be used interchangeably. 70 ---- RUN DATE: 08/01/10 [facility] NMI LIVE PAGE 1 RUN TIME: 1356 Specimen Inquiry RUN USER: INTERFACE -- Name: WANDA VILLALOBOS Status: REG REF Re07/30/10 Age/Sex: 55/M Unit#: [id number] Location: [facility] : 55 -- Specimen: [id number] [facility] Spec Date: 07/30/[address]: Ester whitlock MD Spec Type: SURGICAL P Received: 07/31/10 Copies to: SPECIMEN 1) RIGHT AXILLA 2) RIGHT LOWER BACK HISTORY CLINICAL INFORMATION: No history given GROSS DESCRIPTION 1) The specimen is received in formalin labelled Wanda Villalobos, Right Axilla, and consists of multiple wolf soft tissue fragments measuring 1.5 x 0.8 x 0.6 cm. in aggregate. Submitted entirely, one cassette. 2) The specimen is received in formalin labelled Wanda Villalobos, Right Lower Back, and consists of a wolf soft tissue fragment measuring 0.3 x 0.2 x 0.2 cm. Submitted entirely, one cassette. DIAGNOSIS 1) Skin, right axilla, excision: Verrucoid seborrheic keratosis. 2) Skin, right lower back, excision: Hemangioma. Signed Electronically by: SHRAVAN BATRES MD 08/01/10 1355 -- -- DEPARTMENT OF PATHOLOGY, [address] [place] [address] [facility] Permit #[id number] Natalya Garcia M.D. Principal Ios Developer Dir leroy -- 71 CHOLESTEROL INTERPRETATION: Desirable: Less than 200 MG/DL Borderline-High Risk: 200-239 MG/DL High-Risk: 240 MG/DL and over 72 HDL INTERPRETATION: Undesirable: High Risk: Less than 40 MG/DL Desirable: Low Risk: Greater than 60 MG/DL 73 LDL INTERPRETATION: Low Risk Optimal Level: LDL Less than 100 MG/DL Near or Above Optimal: LDL 100-129 MG/DL Borderline High Risk: LDL 130-159 MG/DL High Risk: LDL 160-189 MG/DL Very High Risk: LDL Greater than 189 MG/DL 74 Anion gap measurement may be of limited value in the presence of any alkalosis, especially in a combined acid base disorder. . 75 A metabolite of Naproxen, O-desmethylnaproxen, has been shown to interfere with the Jendrassik-Cherie method for measuring total bilirubin. Samples from patients who have taken Naproxen have shown spurious elevation in total bilirubin levels. 76 Because ethnic data is not always readily available, this report includes an eGFR for both -Americans and non- Americans. The National Kidney Disease Education Program (NKDEP) does not endorse the use of the MDRD equation for patients that are not between the ages of 18 and 70, are , have extremes of body size, muscle mass, or nutritional status, or are non- or non-. According to the National Kidney Foundation, irrespective of diagnosis, the stage of the disease is based on the level of kidney function: Stage Description GFR(mL/min/1.73 m(2)) 1 Kidney damage with normal or decreased GFR 90 2 Kidney damage with mild decrease in GFR 60-89 3 Moderate decrease in GFR 30-59 4 Severe decrease in GFR 15-29 5 Kidney failure <15 (or dialysis) 77 * SERUM LEVELS OF PSA MEASURED USING THE MARK [employer] ACCESS HYBRITECH IMMUNOASSAY SHOULD NOT BE INTERPRETED ABSOLUTE EVIDENCE OF THE PRESENCE OR ABSENCE OF DISEASE. THE PSA VALUE SHOULD BE USED IN CONJUNCTION WITH OTHER PERTINENT CLINICAL DIAGNOSTIC PROCEDURES. 78 THERAPEUTIC TARGET FOR THE TREATMENT OF DIABETES MELLITUS PATIENTS IS <7% HBA1C, AND IN SELECTIVE PATIENTS <6.0%. PLEASE REFER TO [place] [employer] DIABETIC CARE GUIDELINES FOR FURTHER INFORMATION. 79 Anion gap measurement may be of limited value in the presence of any alkalosis, especially in a combined acid base disorder. . 80 Note change in reference range as of 02/11/08. The change was based on recommendations from the [place] Diabetes [employer]. 81 Please note change in reference range effective 07 . 82 A metabolite of Naproxen, O-desmethylnaproxen, has been shown to interfere with the Jendrassik-Cherie method for measuring total bilirubin. Samples from patients who have taken Naproxen have shown spurious elevation in total bilirubin levels. 83 Because ethnic data is not always readily available, this report includes an eGFR for both -Americans and non- Americans. The National Kidney Disease Education Program (NKDEP) does not endorse the use of the MDRD equation for patients that are not between the ages of 18 and 70, are , have extremes of body size, muscle mass, or nutritional status, or are non- or non-. According to the National Kidney Foundation, irrespective of diagnosis, the stage of the disease is based on the level of kidney function: Stage Description GFR(mL/min/1.73 m(2)) 1 Kidney damage with normal or decreased GFR 90 2 Kidney damage with mild decrease in GFR 60-89 3 Moderate decrease in GFR 30-59 4 Severe decrease in GFR 15-29 5 Kidney failure <15 (or dialysis) 84 CHOLESTEROL INTERPRETATION: Desirable: Less than 200 MG/DL Borderline-High Risk: 200-239 MG/DL High-Risk: 240 MG/DL and over 85 HDL INTERPRETATION: Undesirable: High Risk: Less than 40 MG/DL Desirable: Low Risk: Greater than 60 MG/DL 86 LDL INTERPRETATION: Low Risk Optimal Level: LDL Less than 100 MG/DL Near or Above Optimal: LDL 100-129 MG/DL Borderline High Risk: LDL 130-159 MG/DL High Risk: LDL 160-189 MG/DL Very High Risk: LDL Greater than 189 MG/DL 87 * SERUM LEVELS OF PSA MEASURED USING THE MARK [employer] ACCESS HYBRITECH IMMUNOASSAY SHOULD NOT BE INTERPRETED ABSOLUTE EVIDENCE OF THE PRESENCE OR ABSENCE OF DISEASE. THE PSA VALUE SHOULD BE USED IN CONJUNCTION WITH OTHER PERTINENT CLINICAL DIAGNOSTIC PROCEDURES. 88 * SERUM LEVELS OF PSA MEASURED USING THE MARK [employer] ACCESS HYBRITECH IMMUNOASSAY SHOULD NOT BE INTERPRETED ABSOLUTE EVIDENCE OF THE PRESENCE OR ABSENCE OF DISEASE. THE PSA VALUE SHOULD BE USED IN CONJUNCTION WITH OTHER PERTINENT CLINICAL DIAGNOSTIC PROCEDURES. 89 mL/min/1.73m2 . Normal Function or Mild Renal Disease, if clinically at risk: >or=60 Moderately decreased: 30 - 59 Severely decreased: 15 - 29 Renal Failure: <15 . Please note that the MDRD equation requires an additional adjustment for -Americans (multiply the GFR result by 1.210). . Glomerular Filtration Rate (GFR) is estimated based on the MDRD equation, which assumes a steady state for creatinine (Radha Int Med 139/2 137-149, 2003), as recommended by the National Kidney Disease Education Program in conjunction with the National Institutes of Health and the National Kidney Foundation. . Clinical conditions in which it may be necessary to measure GFR by using clearance methods include extremes of age and body size, severe malnutrition or obesity, diseases of skeletal muscle, paraplegia or quadriplegia, vegetarian diet, rapidly changing kidney function, and calculation of the dose of potentially toxic drugs that are excreted by the kidneys. 90 * SERUM LEVELS OF PSA MEASURED USING THE [employer] ACCESS HYBRITECH IMMUNOASSAY SHOULD NOT BE INTERPRETED ABSOLUTE EVIDENCE OF THE PRESENCE OR ABSENCE OF DISEASE. THE PSA VALUE SHOULD BE USED IN CONJUNCTION WITH OTHER PERTINENT CLINICAL DIAGNOSTIC PROCEDURES. 91 CHOLESTEROL INTERPRETATION: Desirable: Less than 200 MG/DL Borderline-High Risk: 200-239 MG/DL High-Risk: 240 MG/DL and over 92 HDL INTERPRETATION: Undesirable: High Risk: Less than 40 MG/DL Desirable: Low Risk: Greater than 60 MG/DL 93 LDL INTERPRETATION: Low Risk Optimal Level: LDL Less than 100 MG/DL Near or Above Optimal: LDL 100-129 MG/DL Borderline High Risk: LDL 130-159 MG/DL High Risk: LDL 160-189 MG/DL Very High Risk: LDL Greater than 189 MG/DL 94 Anion gap measurement may be of limited value in the presence of any alkalosis, especially in a combined acid base disorder. . 95 Note change in reference range as of 02/11/08. The change was based on recommendations from the [place] [employer]. 96 Please note change in reference range effective 07 . 97 THERAPEUTIC TARGET FOR THE TREATMENT OF DIABETES MELLITUS PATIENTS IS <7% HBA1C, AND IN SELECTIVE PATIENTS <6.0%. PLEASE REFER TO [place] [employer] DIABETIC CARE GUIDELINES FOR FURTHER INFORMATION. 98 3HR GTT FAST URINE FSTNG URINE GLU from [id number]. 99 REFERENCE RANGE: 20-50 MG/DL ABOVE FASTING 100 [employer] FOR THE TREATMENT OF DIABETES MELLITUS PATIENTS IS <7% HBA1C, AND IN SELECTIVE PATIENTS <6.0%. PLEASE REFER TO [employer] DIABETIC CARE GUIDELINES FOR FURTHER INFORMATION. 101 REFERENCE RANGE: 5-15 MG/DL ABOVE FASTING 102 REFERENCE RANGE: FASTING OR 10 MG/DL BELOW 103 Anion gap measurement may be of limited value in the presence of any alkalosis, especially in a combined acid base disorder. . 104 SDS 09/09 105 SERGIO VALUE=2.01 ( OF 05/29/07 Recommended INR for Patients on Oral Anticoagulants Prophylaxis 2.0 - 3.0 Treatment of thrombosis 2.0 - 3.0 Prevention of embolism 2.0 - 3.0 Prevention of embolism from prosthetic heart valves 2.5 - 3.5 106 PLEASE NOTE NEW REFERENCE RANGE EFFECTIVE 05 107 Anion gap measurement may be of limited value in the presence of any alkalosis, especially in a combined acid base disorder. . 108 FASTING 109 Anion gap measurement may be of limited value in the presence of any alkalosis, especially in a combined acid base disorder. . 110 * SERUM LEVELS OF PSA MEASURED USING THE Fishin' Glue ACCESS HYBRITECH IMMUNOASSAY SHOULD NOT BE INTERPRETED ABSOLUTE EVIDENCE OF THE PRESENCE OR ABSENCE OF DISEASE. THE PSA VALUE SHOULD BE USED IN CONJUNCTION WITH OTHER PERTINENT CLINICAL DIAGNOSTIC PROCEDURES. 111 Classification: Borderline High . 112 Classification: Low . 113 CALCULATED LDL APPROXIMATES THE VALUE OF A DIRECT LDL MEASUREMENT. Classification: Borderline High . 114 Anion gap measurement may be of limited value in the presence of any alkalosis, especially in a combined acid base disorder. . 115 Anion gap measurement may be of limited value in the presence of any alkalosis, especially in a combined acid base disorder. . 116 Classification: Desirable . 117 Classification: Low . 118 CALCULATED LDL APPROXIMATES THE VALUE OF A DIRECT LDL MEASUREMENT. Classification: Near or above optimal . 119 * SERUM LEVELS OF PSA MEASURED USING THE Fishin' Glue ACCESS HYBRITECH IMMUNOASSAY SHOULD NOT BE INTERPRETED ABSOLUTE EVIDENCE OF THE PRESENCE OR ABSENCE OF DISEASE. THE PSA VALUE SHOULD BE USED IN CONJUNCTION WITH OTHER PERTINENT CLINICAL DIAGNOSTIC PROCEDURES. 120 Anion gap measurement may be of limited value in the presence of any alkalosis, especially in a combined acid base disorder. . 121 Lymphopenia % 122 INTERPRETATION %CK-MB < 5% NOT SUPPORTIVE OF DIAGNOSIS OF VT 5 - <10% INDETERMINATE; SUGGEST SERIAL STUDIES IF CLINICALLY INDICATED 10% OR > CONSISTENT WITH DIAGNOSIS OF VT . 123 Anion gap measurement may be of limited value in the presence of any alkalosis, especially in a combined acid base disorder. . 124 New Reference Range and Interpretation effective 03/26/02 TnI (ng/ml) INTERPRETATION <0.06 ng/ml NOT SUPPORTIVE OF DIAGNOSIS OF [place] 0.06 - 0.50 ng/ml INDETERMINATE: SUGGEST SERIAL STUDIES IF CLINICALLY INDICATED. > 0.5 ng/ml CONSISTENT WITH DIAGNOSIS OF [place] . 125 Classification: Desirable . 126 Classification: Low . 127 CALCULATED LDL APPROXIMATES THE VALUE OF A DIRECT LDL MEASUREMENT. Classification: Near or above optimal . 128 * SERUM LEVELS OF PSA MEASURED USING THE MARK [place] ACCESS HYBRITECH IMMUNOASSAY SHOULD NOT BE INTERPRETED ABSOLUTE EVIDENCE OF THE PRESENCE OR ABSENCE OF DISEASE. THE PSA VALUE SHOULD BE USED IN CONJUNCTION WITH OTHER PERTINENT CLINICAL DIAGNOSTIC PROCEDURES. 129 Anion gap measurement may be of limited value in the presence of any alkalosis, especially in a combined acid base disorder. . 130 See [facility] Report 131 Classification: Desirable . 132 Classification: Low . 133 CALCULATED LDL APPROXIMATES THE VALUE OF A DIRECT LDL MEASUREMENT. Classification: Near or above optimal . 134 * SERUM LEVELS OF PSA MEASURED USING THE MARK [place] ACCESS HYBRITECH IMMUNOASSAY SHOULD NOT BE INTERPRETED ABSOLUTE EVIDENCE OF THE PRESENCE OR ABSENCE OF DISEASE. THE PSA VALUE SHOULD BE USED IN CONJUNCTION WITH OTHER PERTINENT CLINICAL DIAGNOSTIC PROCEDURES. Procedures Date Code Description Status 11/06/2018 89305 EKG, at Least 12 Leads w/Interpretation and Report Completed 08/27/2017 87453 Hra-Admin Patient Focused Health Risk Assessment Completed Instrument 04/29/2016 08716 EKG, at Least 12 Leads w/Interpretation and Report Completed 12/22/2015 [id number] Colonoscopy Completed 02/21/2015 94778 Removal-Impacted Cerumen Completed 11/09/2010 09268 Removal-Impacted Cerumen Completed 07/30/2010 24172 Shaving Epidermal Lesions-<.5 CM Completed 07/30/2010 02642 Excision Of Skin Tags-Up To 15 Completed 07/29/2007 80504 EKG, at Least 12 Leads w/Interpretation and Report Completed 02/10/2003 42712 Removal-Impacted Cerumen Completed 02/10/2003 36973 Excision Of Lesion(Trunk,Arm,Leg) Completed 02/10/2003 91732 Excision Of Lesion(Trunk,Arm,Leg) Completed Encounters Type Date Location Provider Dx Diagnosis Office Visit 04/15/2018 Main Office Claudia Musa6.011A Strain of musc/tend 3:45p M.Toby., R.D. the rotator cuff of right shoulder, init Office Visit 03/11/2018 Main Office Ester Sinclair S46.012A Strain of musc/tend 10:15a M.D., R.D. the rotator cuff of left shoulder, init Office Visit 02/02/2018 Main Office Ester Sinclair L03.012 Cellulitis of left 11:00a M.D., R.D. finger Office Visit 09/23/2017 Main Office Josy Raza, M54.5 Low back pain 2:45p PLANE TENDER Office Visit 09/09/2017 Main Office Josy Raza, M54.5 Low back pain 3:00p PLANE TENDER Office Visit 08/27/2017 Main Office Ester Sinclair, Z00.00 Encntr for general 9:30a M.D., R.D. adult medical exam w/o abnormal findings I10 Essential (primary) hypertension E78.00 Pure hypercholesterolemia, unspecified R73.01 Impaired fasting glucose K92.1 Melena Office Visit 07/14/2017 3:15p Main Office Ester Sinclair, K64.9 Unspecified M.D., R.D. hemorrhoids Office Visit 05/19/2017 3:30p Main Office Ester Sinclair, R07.9 Chest pain, M.D., R.D. unspecified I10 Essential (primary) hypertension Office Visit 05/05/2017 1:30p Main Office Josy S46.101A Unsp injury of Luz Marina, PAYTON musc/fasc/tend long hd bicep, right arm, init Office Visit 03/31/2017 3:00p Main Office Josy K92.1 Maggie Raza NP Z23 Encounter for immunization Z12.11 Encounter for screening for malignant neoplasm of colon Office Visit 03/28/2017 4:30p Main Office Josy Raza NP K92.1 Melena Z12.11 Encounter for screening for malignant neoplasm of colon Office Visit 12/18/2016 11:30a Main Office Ester Sinclair, K40.90 Unil inguinal M.D., R.D. hernia, w/o obst or gangr, not spcf as recur Office Visit 07/09/2016 4:00p Main Office Earnest Noriega M25.512 Pain in left M.D. shoulder Office Visit 07/06/2016 10:45a Main Office Earnest Noriega M25.512 Pain in left M.D. 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 adult medical exam w/o abnormal findings E78.00 Pure hypercholesterolemia, unspecified R73.01 Impaired fasting glucose I10 Essential (primary) hypertension N40.0 Benign prostatic hyperplasia without lower urinry tract symp B35.1 Tinea unguium Office Visit 04/01/2016 12:00p Main Office Clary Rai, I10 Essential ( primary) [employer] PAINTER HELPER-C hypertension Z23 Encounter for immunization Office Visit 03/30/2016 9:45a Main Office Clary Rai, H10.89 Other conjunctivitis [employer] PAINTER HELPER-C Office Visit 02/28/2016 11:30a Main Office Paxton R10.10 Upper abdominal MD Marlon pain, unspecified Office Visit 01/03/2016 3:15p Main Office Clary Rai, R10.10 Upper abdominal [employer] PAINTER HELPER-C pain, unspecified B35.9 Dermatophytosis, unspecified Office Visit 04/26/2015 2:15p Main Office Ester Sinclair, Z00.00 Encntr for M.D., R.D. general adult medical exam w/o abnormal findings R07.89 Other chest pain R73.01 Impaired fasting glucose N40.0 Enlarged prostate without lower urinary tract symptoms Z23 Encounter for immunization Office Visit 04/12/2015 4:30p Main Office Ester Sinclair, R07.89 Other chest M.D., R.D. pain Office Visit 11/09/2014 4:00p Main Office Ester Sinclair, 786.59 Pain Chest M.D., R.D. Other 401.1 Hypertension Benign 785.1 Palpitations Office Visit 10/31/2014 2:45p Main Office Ester Sinclair, 401.1 Hypertension Benign M.D., R.D. 785.0 Tachycardia Unspec 786.59 Pain Chest Other Office Visit 01/31/2014 3:15p Main Office Ester Sinclair M.D., 706.2 Sebaceous Cyst R.D. Office Visit 01/17/2014 11:45a Main Office Ester Sinclair M.D., 723.1 Cervicalgia R.D. 782.0 Skin Sensation Disturbance 706.2 Sebaceous Cyst Office Visit 12/02/2013 10:30a Main Office Ester Sinclair, 379.90 Eye Disorder M.D., R.D. Unspec 238.2 Neoplasm Uncertain Behavior Skin Office Visit 11/18/2013 1:30p Main Office Ester Sinclair, 379.90 Eye Disorder M.D., R.D. Unspec 578.1 Blood In Stool Melena 723.1 Cervicalgia Office Visit 10/20/2013 4:00p Main Office Clary Rai, 388.9 Ear Disorder Unspec [employer] PAINTER HELPER-[employer] Office Visit 10/06/2013 3:15p Main Office Clary Rai, 782.9 Skin & Integumentary [employer] PA[employer] Tissue Other Symptoms 782.9 Skin & Integumentary Tissue Other Symptoms 782.9 Skin & Integumentary Tissue Other Symptoms Office Visit 05/17/2013 1:00p Main Office Ester Sinclair, V70.0 Examination General M.D., R.D. Medical Routine AT Health Care Facility 272.0 Hypercholesterolemia Pure 401.9 Hypertension Unspec 696.1 Psoriasis Other 278.02 Overweight 238.2 Neoplasm Uncertain Behavior Skin V04.81 Need For Prophylactic Vaccination & Inoculation/Influenza Office Visit 01/13/2013 3:30p Main Office Clary Rai, 110.5 Dermatophytosis Body [employer] Office Visit 01/31/2012 2:45p Main Office Clary Rai, 110.8 Dermatophytosis Other [employer] PAINTER [employer] Spec Sites Office Visit 01/17/2012 11:15a Main Office Clary Rai, 110.8 Dermatophytosis Other [employer] PAINTER [employer]PER[employer] Spec Sites Office Visit 01/10/2012 2:15p Main Office Clary Rai, 110.8 Dermatophytosis Other [employer] PA[employer] Spec Sites Office Visit 08/29/2011 1:30p Main Office Ester Sinclair, V70.0 Examination General M.D., R.D. Medical Routine AT Health Care Facility 272.0 Hypercholesterolemia Pure 401.9 Hypertension Unspec 790.21 Impaired Fasting Glucose 600.00 Hypertrophy Prostate W/O Urinary Obstruction & Other Luts 696.1 Psoriasis Other 278.02 Overweight Office Visit 05/08/2011 4:15p Main Office Clary Rai, 381.9 Eustachian Tube [employer] Disorder Unspec V04.81 Need For Prophylactic Vaccination & Inoculation/Influenza Office Visit 08/06/2010 10:45a Main Office Ester Sinclair, 366.9 Cataract Unspec M.D., R.D. 401.9 Hypertension Unspec 272.0 Hypercholesterolemia Pure 790.21 Impaired Fasting Glucose 600.00 Hypertrophy Prostate W/O Urinary Obstruction & Other Luts Office Visit 07/16/2010 8:30a Main Office Ester Sinclair, V70.0 Examination General M.D., R.D. Medical Routine AT Health Care Facility 272.0 Hypercholesterolemia Pure 401.9 Hypertension Unspec 601.1 Prostatitis Chronic 790.21 Impaired Fasting Glucose 600.00 Hypertrophy Prostate W/O Urinary Obstruction & Other Luts 238.2 Neoplasm Uncertain Behavior Skin 724.2 Lumbago 786.59 Pain Chest Other Office Visit 05/16/2010 4:15p Main Office Justine Hodgson, 709.9 Skin & Subcutaneous PLANE TENDER Tissue Disorders Unspec Office Visit 06/12/2009 1:30p Main Office Ester Sinclair, V70.0 Examination General M.D., R.D. Medical Routine AT Health Care Facility 401.9 Hypertension Unspec 272.0 Hypercholesterolemia Pure 601.1 Prostatitis Chronic V04.81 Need For Prophylactic Vaccination & Inoculation/Influenza 790.21 Impaired Fasting Glucose Office Visit 09/05/2008 9:30a Main Office Eli West 788.69 Urinary Abnormaltiy Storm, SHIPYARD PAINTER HELPER-C Other Office Visit 07/15/2008 9:15a Main Office Clyde Gaines, 724.5 Backache Unspec M.D. 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 724.5 Backache Unspec 228.09 Hemangioma Other Sites Office Visit 06/27/2008 4:30p Main Office Eli West 789.07 Pain Abdominal Storm, [employer] PAINTER HELPER-C Generalized Office Visit 06/21/2008 3:15p Main Office Eli West 564.00 Constipation Storm, [employer] PAINTER HELPER-C Unspecified Office Visit 06/10/2008 8:45a Main Office Clyde Gaines, 706.2 Sebaceous Cyst M.D. 401.9 Hypertension Unspec 272.0 Hypercholesterolemia Pure 790.22 Impaired Glucose Tolerance Test (Oral) 600.00 Hypertrophy Prostate W/O Urinary Obstruction & Other Luts 380.4 Impacted Cerumen V16.0 History Family Malignant Neoplasm Gastrointestinal Tract V70.0 Examination General Medical Routine AT Health Care Facility Office Visit 05/24/2008 3:00p Main Office Eli Devi, 706.2 Sebaceous Cyst [employer] PA[employer] Office Visit 05/13/2008 11:45a Main Office Clyde Gaines, 706.2 Sebaceous Cyst M.D. Office Visit 12/28/2007 3:00p Main Office Clyde Gaines, 790.22 Impaired Glucose M.D. Tolerance Test (Oral) 401.9 Hypertension Unspec 786.59 Pain Chest Other 784.1 Throat Pain 782.0 Skin Sensation Disturbance Office Visit 09/28/2007 3:45p Main Office Clyde Gaines 790.29 Other Abnormal M.D. Glucose 786.59 Pain Chest Other Office Visit 07/29/2007 Main Office Clyde Gaines 786.59 Pain Chest Other 3:45p M.D. Office Visit 06/08/2007 Main Office Clyde Gaines, 427.61 Premature Beats 12:45p M.D. Supraventricular 272.0 Hypercholesterolemia Pure 727.04 Tenosynovitis Radial Styloid 600.00 Hypertrophy Prostate W/O Urinary Obstruction & Other Luts V70.0 Examination General Medical Routine AT Health Care Facility V04.81 Need For Prophylactic Vaccination & Inoculation/Influenza Office Visit 05/21/2006 1:45p Main Office Clyde Gaines V70.0 Examination M.D. General Medical Routine AT Health Care Facility 786.59 Pain Chest Other 427.61 Premature Beats Supraventricular 600.00 Hypertrophy Prostate W/O Urinary Obstruction & Other Luts V76.9 Screening Malignant Neoplasm Unspec Office Visit 04/09/2006 3:05p Main Office Clyde Gaines, 380.4 Impacted Cerumen M.D. Office Visit 04/09/2006 2:30p Main Office Clyde Gaines 380.4 Impacted Cerumen M.D. Office Visit 04/07/2006 3:00p Main Office Clyde Gaines, 009.1 Colitis Enteritis & M.D. Gastroenteritis Presumed Infectious Orig 401.9 Hypertension Unspec 924.3 Contusion Toe 380.4 Impacted Cerumen Office Visit 03/05/2006 4:00p Main Office Clyde Gaines 786.59 Pain Chest Other M.D. Office Visit 02/08/2005 11:15a Main Office Clyde Gaines, 216.8 Benign Neoplasm M.D. Skin Other Spec Sites 401.9 Hypertension Unspec 380.4 Impacted Cerumen Office Visit 12/19/2004 1:45p Main Office Clyde Gaines M.D. 729.5 Pain In Limb 786.59 Pain Chest Other 380.4 Impacted Cerumen 401.9 Hypertension Unspec V16.0 History Family Malignant Neoplasm Gastrointestinal Tract V70.0 Examination General Medical Routine AT Health Care Facility V76.9 Screening Malignant Neoplasm Unspec Office Visit 08/24/2004 10:00a Main Office Clyde Gaines M.D. 729.5 Pain In Limb Office Visit 05/28/2004 4:00p Main Office Clyde Gaines M.D. 729.5 Pain In Limb 401.9 Hypertension Unspec Office Visit 03/26/2004 2:30p Main Office Clyde Gaines, 078.19 Viral Warts Spec M.D. Other Office Visit 03/31/2003 3:00p Main Office Clyde Gaines 786.59 Pain Chest Other M.D. Office Visit 10/27/2002 3:00p Main Office Clyde Gaines 401.9 Hypertension Unspec M.D. 427.60 Premature Beats Unspec 272.0 Hypercholesterolemia Pure V70.0 Examination General Medical Routine AT Health Care Facility V76.9 Screening Malignant Neoplasm Unspec
--- NOTE | 2018-11-24 19:57 | ED ---
Palpitations / Dysrhythmia - HPI Summary HPI Summary: This pt is a 63 y/o male presenting to [facility] c/o palpitations and chest discomfort. Pt reports at about 17:00 he was going to get dinner when he began to feel PVCs. He notes he has hx of PVCs but normally does not feel them. Today he notes his PVCs were very frequent every 2-3 seconds. He states this has never happened to him before. Additionally felt chest discomfort. Denies lightheadedness, dizziness, fever, chills, nausea, vomiting. Currently he reports feeling better and states he occasionally feels intermittent PVCs now. Denies hx of DVT or PE. PMHx: HTN for which he takes atenolol and hydrochlorothiazide. Allergic to Bactrim, reaction was hot face. Surgery: left rotator cuff surgery 6 months ago. Denies tobacco, drug, and alcohol use. - History of Current Complaint Chief Complaint: EDDysrhythmPalp Time Seen by Provider: 11/24/18 19:33 Hx Obtained From: Patient Onset/Duration: Lasting Hours, Still Present Timing: Intermittent Episodes Lasting: - 2-3 seconds Severity Initially: Moderate Severity Currently: Mild Character: Irregular Aggravating: Nothing Alleviating: Nothing Associated Signs & Symptoms: Chest Pain - Allergy/Home Medications Allergies/Adverse Reactions: Allergies Allergy/AdvReac Type Severity Reaction Status Date / Time sulfamethoxazole Allergy Hives Verified 11/24/18 19:37 [From Bactrim] trimethoprim [From Bactrim] Allergy Hives Verified 11/24/18 19:37 PMH/Surg Hx/FS Hx/Imm Hx Endocrine/Hematology History: Denies: Hx Diabetes, Hx Systemic Lupus Erythematosus, Hx Thyroid Disease, Hx Anemia, Hx Unexplained Bleeding Cardiovascular History: Reports: Hx Hypertension - ON MEDS, Other Cardiovascular Problems/Disorders - cardiac cath in 2009 Denies: Hx Aneurysm, Hx Angina, Hx Angioplasty, Hx Auto Implanted Cardiovert Defib, Hx Cardiac Arrest, Hx Cardiomegaly, Hx Congenital Heart Disease, Hx Congestive Heart Failure, Hx Coronary Artery Disease, Hx Deep Vein Thrombosis, Hx Embolism, Hx Hypercholesterolemia, Hx Hypotension, Hx Myocardial Infarction, Hx Pacemaker/ICD, Hx Peripheral Vascular Disease, Hx Rheumatic Fever, Hx Syncope , Hx Valvular Heart Disease Respiratory History: Denies: Hx Asthma, Hx Chronic Bronchitis, Hx Chronic Obstructive Pulmonary Disease (COPD) History: Reports: Hx Benign Prostatic Hyperplasia, Other Problems/ Disorders - prostatitis Denies: Hx Renal Disease Musculoskeletal History: Reports: Hx Arthritis - hands Denies: Hx Back Problems, Hx Fibromyalgia, Hx Gout, Hx Orthopedic Injury, Hx Scoliosis Sensory History: Reports: Hx Cataracts - new lenses, Hx Contacts or Glasses - reading Denies: Hx Hearing Aid Opthamlomology History: Reports: Hx Cataracts - new lenses, Hx Contacts or Glasses - reading Neurological History: Reports: Hx Headaches - summer 2013 Denies: Hx Dementia, Hx Developmental Delay, Hx Migraine, Hx Nerve Disease, Hx Seizures, Hx Spinal Cord Injury, Hx Transient Ischemic Attacks (TIA), Other Neuro Impairments/Disorders Psychiatric History: Denies: Hx Panic Disorder - Surgical History Surgery Procedure, Year, and Place: cardiac cath 2007 - NO STENTS,. cataract surgery bilateral. DETACHED RETINA- 07/2015 ( LASER SURGERY - REPORT IN PT'S EMR) Hx Anesthesia Reactions: No Infectious Disease History: No Infectious Disease History: Denies: Traveled Outside the [place] in Last 30 Days - Family History Known Family History: Positive: None, Other - Father: [facility] at about 61 y/o - Social History Alcohol Use: None Hx Substance Use: No Substance Use Type: Reports: None Hx Tobacco Use: No Smoking Status (MU): Never Smoked Tobacco Review of Systems Negative: Fever Positive: Palpitations, Chest Pain Negative: Vomiting, Nausea Neurological: Other - NEGATIVE: lightheadedness, dizziness All Other Systems Reviewed And Are Negative: Yes Physical Exam - Summary Physical Exam Summary: GENERAL: Patient is a well-developed and nourished male who is lying comfortable in the stretcher. Patient is not in any acute respiratory distress. HEAD AND FACE: Normocephalic EYES: PERRLA, EOMI x 2. EARS: Hearing grossly intact. MOUTH: Oropharynx within normal limits. NECK: Supple, trachea is midline, no adenopathy, no JVD, no carotid bruit. CHEST: Symmetric, no tenderness at palpation LUNGS: Clear to auscultation bilaterally. No wheezing or crackles. CVS: Regular rate and rhythm, S1 and S2 present, no murmurs or gallops appreciated. ABDOMEN: Soft, non-tender. Bowel sounds are normal. No abnormal abdominal pulsations. EXTREMITIES: Full ROM in all major joints, no edema, no cyanosis or clubbing. NEURO: Alert and oriented x 3. No acute neurological deficits. Speech is normal and follows commands. SKIN: Dry and warm Triage Information Reviewed: Yes Vital Signs On Initial Exam: Initial Vitals Temp Pulse Resp BP Pulse Ox 98.9 F 76 16 195/106 97 11/24/18 17:58 11/24/18 17:58 11/24/18 17:58 11/24/18 17:58 11/24/18 17:58 Vital Signs Reviewed: Yes Diagnostics - Vital Signs Vital Signs Temp Pulse Resp BP Pulse Ox 11/24/18 17:58 98.9 F 76 16 195/106 97 - Laboratory Result Diagrams: 11/24/18 19:59 11/24/18 19:59 Lab Statement: Any lab studies that have been ordered have been reviewed, and results considered in the medical decision making process. - Radiology Chest XR Radiology Interpretation Completed By: ED Physician Summary of Radiographic Findings: Normal chest XR. Pending official report. - EKG 18:07 Cardiac Rate: NL - at 66 bpm EKG Rhythm: Sinus Rhythm Summary of EKG Findings: Normal intervals. Normal axis. Course/Dx - Course Assessment/Plan: Pt is a 63 y/o male presenting to [facility] c/o palpitations and chest discomfort. Test results are unremarkable except D-dimer of 258, glucose of 123. Chest XR is negative. CTA chest was ordered. Pt will be signed out to Dr. Kebede, pending disposition, awaiting CTA chest. - Diagnoses Provider Diagnoses: Palpitations Discharge - Sign-Out/Discharge Documenting (check all that apply): Sign-Out Patient Signing out patient TO: Mitchell Kebede - pending CTA chest Patient Received Moderate/Deep Sedation with Procedure: No - Discharge Plan Condition: Stable Referrals: Ester Curran MD [Primary Care Provider] - - Billing Disposition and Condition Condition: STABLE - Attestation Statements Document Initiated by Scribe: Yes Documenting Scribe: Rufina Crain Provider For Whom Luke is Documenting (Include Credential): Jamey Valdovinos MD Scribe Attestation: Rufina Quinteros, scribed for Jamey Valdovinos MD on 11/24/18 at 2124. Scribe Documentation Reviewed: Yes Provider Attestation: The documentation as recorded by the Rufina elias accurately reflects the service I personally performed and the decisions made by me, Jamey Valdovinos MD Status of Scribe Document: Viewed
[2018-11-24 20:06] LABS: ABS Basophils 0.1 10^3/ul (0-0.2); ABS Eosinophils 0.1 10^3/ul (0-0.6); ABS Lymphocytes 1.6 10^3/ul (1.0-4.8); ABS Monocytes 0.5 10^3/ul (0-0.8); ABS Neutrophils 6.4 10^3/ul (1.5-7.7); Eosinophil % 1.6 %; Hematocrit 45 % (42-52); Hemoglobin 15.6 g/dL (14.0-18.0); Lymphocyte % 18.8 %; Mean Corpuscular HGB Conc 35 g/dL (31-36); Mean Corpuscular Hemoglobin 31 pg (27-31); Mean Corpuscular Volume 91 fL (80-94); Mean Platelet Volume 8.3 fL (7.4-10.4); Platelet Count 229 10^3/uL (150-450); Red Blood Count 4.97 10^6 /uL (4.18-5.48); Red Cell Distribution Width 14 % (10.5-15); White Blood Count 8.7 10^3/uL (3.5-10.8)
[2018-11-24 20:22] LABS: Activated Partial Thrombo Time 33.9 seconds (26.0-38.0); INR 1.03 (0.82-1.09)
[2018-11-24 20:28] LABS: Albumin 4.6 g/dL (3.2-5.2); Albumin/Globulin Ratio 1.8 (1-3); BUN/Creatinine Ratio 18.4 (8-20); EGFR African American 93.5 (>60); EGFR Non-African American 77.2 (>60); Globulin 2.6 g/dL (2-4); Magnesium 2.3 mg/dL (1.9-2.7); Potassium 3.6 mmol/L (3.5-5.0); Total Bilirubin 0.6 mg/dL (0.2-1.0); Total Protein 7.2 g/dL (6.4-8.9)
[2018-11-24 21:05] LABS: TSH (Thyroid Stimulating Horm) 1.85 mcIU/mL (0.34-5.60)
[2018-11-24 21:57] LABS: Urine Appearance Clear; Urine Bilirubin Negative (Negative); Urine Blood Negative (Negative); Urine Color Straw; Urine Glucose Negative (Negative); Urine Ketones Negative (Negative); Urine Nitrite Negative (Negative); Urine Protein Negative (Negative); Urine Specific Gravity 1.006 (1.010-1.030); Urine Urobilinogen Negative (Negative)
--- NOTE | 2018-11-25 00:40 | ED ---
Progress - Progress Note Progress Note: Pt is a sign out from Dr. Valdovinos to Dr. Kebede at 2200 on 11/24/18 pending CTA of the chest. - Results/Orders Results/Orders: Pt received a CTA of the chest which found 1. There is a small hiatal hernia. 2. No visible acute pulmonary embolism but there is limited evaluation of segmental and subsegmental branches of the pulmonary arteries because of significant respiratory motion artifact. Re-Evaluation - Re-Evaluation First Eval Re-Evaluation Time: 01:03 Change: Improved Comment: I have discussed the discharge plan with the pt who is agreeable and will be sent home with a Dx of heart palpitations and will be informed to follow up with her PCP within 3 days and to return to the ED with any new or worsening symptoms. Course/Dx - Course Course Of Treatment: Pt was a sign out from Dr. Valdovinos at 2200 on 11/24/18 pending a CTA of the chest. Upon review of the CTA it was found that the pt had 1. There is a small hiatal hernia. 2. No visible acute pulmonary embolism but there is limited evaluation of segmental and subsegmental branches of the pulmonary arteries because of significant respiratory motion artifact. The pt will be discharged home with a Dx of heart palpitations and instructed to follow up with her PCP within 3 days and to return to the ED with any new or worsening symptoms. - Diagnoses Provider Diagnoses: Palpitations Discharge - Sign-Out/Discharge Documenting (check all that apply): Patient Departure - discharge Patient Received Moderate/Deep Sedation with Procedure: No - Discharge Plan Condition: Good Disposition: HOME Patient Education Materials: Heart Palpitations (ED) Referrals: Ester Curran MD [Primary Care Provider] - - Billing Disposition and Condition Condition: GOOD Disposition: Home - Attestation Statements Document Initiated by Luke: Yes Documenting Scribe: Richard Irving Provider For Whom Luke is Documenting (Include Credential): Mitchell Kebede MD Scribe Attestation: Richard Quinteros scribed for Mitchell Kebede MD on 11/25/18 at 0514. Scribe Documentation Reviewed: Yes Provider Attestation: The documentation as recorded by the Richard elias accurately reflects the service I personally performed and the decisions made by me, Mitchell Kebede MD Status of Scribe Document: Viewed
[2018-11-25 01:08] VITALS: BP 131/77
== END | disposition home or self-care (01) ==
LOC: ED 17:56
DX: R00.2 Palpitations (principal); I10 Essential (primary) hypertension; K44.9 Diaphragmatic hernia without obstruction or gangrene; R07.9 Chest pain, unspecified
CPT/HCPCS: 36415; 71046; 71275; 80053; 81003; 83605; 83735; 83880; 84443; 84484; 85025; 85379; 85610; 85730; 93005; 96360; 96361; 99282; Q9967